=== PATIENT | female | born 1940 | race Caucasian/White ===

== ENCOUNTER 2017-12-30 04:42 | Outpatient (CLI) | payer MEDICARE, BC ==
[~2017-12-30 04:42] MED LIST: APIX5TAB3 PO; ASPI-611 PO; DULO-31 PO; FOLI1TAB16 PO; GABA-532 PO; LEVO50TA8 PO; LISI-604 PO; LYR75C PO; METH-603 PO; MULT-1085 PO; NITR0.4T SL; OMEP20CA10 PO; SIMV20TA5 PO; SOTA80TA69 PO
== END 2017-12-30 23:59 | disposition home or self-care (01) ==
LOC: DIABETIC 04:42
PROVIDERS: ATTEND Family Medicine
DX: E11.65 Type 2 diabetes mellitus with hyperglycemia (principal); E11.21 Type 2 diabetes mellitus with diabetic nephropathy; E11.40 Type 2 diabetes mellitus with diabetic neuropathy, unspecified; E11.319 Type 2 diabetes mellitus with unspecified diabetic retinopathy without macular edema; E11.43 Type 2 diabetes mellitus with diabetic autonomic (poly)neuropathy; K31.84 Gastroparesis; I25.10 Atherosclerotic heart disease of native coronary artery without angina pectoris; I10 Essential (primary) hypertension
CPT/HCPCS: G0108

== ENCOUNTER 2018-04-23 11:20 | Inpatient (IN) | payer MEDICARE, BC ==
[~2018-04-23] VITALS: Ht 167.6 cm; Wt 113.6 kg
[2018-04-23] VITALS (12 sets, daily range): BP systolic 139–154; BP diastolic 84–126
[~2018-04-23 11:20] MED LIST changes: +ALB0.5UD IH; +AMOX-419 PO; +HYDR-3965 PO; -LYR75C PO; -METH-603 PO; +NITR100C6 PO; +ONDA8TAB9 PO; +PPD ID; +PREG225C PO; +RIVA20TA PO; -SOTA80TA69 PO; +SOTA80TA73 PO
[2018-04-23] MEDS ORDERED: LEVO50TA8 PO (11:46)
[2018-04-23] MEDS ORDERED: DULO-31 PO (11:46)
[2018-04-23] MEDS ORDERED: FOLIC ACID PO (11:46)
[2018-04-23] MEDS ORDERED: DOCU-148 PO (11:46)
[2018-04-23] MEDS ORDERED: PIPE2.258 IV (12:22)
[2018-04-23] MEDS ORDERED: LYR25C PO (12:22)
[2018-04-23] MEDS ORDERED: PRAV40TA3 PO (12:22)
[2018-04-23] MEDS ORDERED: POLY17PO10 PO (12:22)
[2018-04-23] MEDS ORDERED: [UNRECOGNIZED DRUG - CODE] EACHEYE (12:22)
[2018-04-23] MEDS ORDERED: ONDA8TAB9 PO (12:22)
[2018-04-23] MEDS ORDERED: PROBIOTIC PO (12:22)
[2018-04-23] MEDS ORDERED: ACET-2119 PO (12:22)
[2018-04-23 12:49] LABS: BASOPHILS # (AUTO) 0.1 X10'3 (0-0.2); BASOPHILS % (AUTO) 0.6 % (0-1); EOSINOPHILS # (AUTO) 0.5 X10'3 (0-0.9); HEMATOCRIT 24.2 % (35.0-45.0); LYMPHOCYTES # (AUTO) 0.9 X10'3 (1.1-4.8); LYMPHOCYTES % (AUTO) 9.2 % (21-51); MEAN CORPUSCULAR HEMOGLOBIN 25.2 PG (27.0-31.0); MEAN CORPUSCULAR HGB CONC 33.2 % (33.0-36.5); MEAN CORPUSCULAR VOLUME 75.8 FL (78-98); MEAN PLATELET VOLUME 9.4 FL (7.4-10.4); MONOCYTES # (AUTO) 0.9 X10'3 (0-0.9); MONOCYTES % (AUTO) 8.8 % (2-12); NEUTROPHILS # (AUTO) 7.4 X10'3 (1.8-7.7); NEUTROPHILS % (AUTO) 76.4 % (42-75); PLATELET COUNT 206 X10'3 (140-440); RED BLOOD COUNT 3.19 X10'6 (4.20-5.60); RED CELL DISTRIBUTION WIDTH 17.2 % (11.5-14.5); WHITE BLOOD COUNT 9.6 X10'3 (4.5-11.0)
[2018-04-23 13:01] LABS: ALANINE AMINOTRANSFERASE 12 U/L (12-78); ALBUMIN 1.7 G/DL (3.4-5.0); ALBUMIN/GLOBULIN RATIO 0.3 (1.1-1.5); ALKALINE PHOSPHATASE 123 IU/L (46-116); ANION GAP 14 (8-16); ASPARTATE AMINO TRANSFERASE 18 U/L (10-37); BILIRUBIN,TOTAL 0.6 MG/DL (0.1-1.0); BLOOD UREA NITROGEN 35 MG/DL (7-18); BUN/CREATININE RATIO 6.5 (6.6-38.0); CALCIUM 7.3 MG/DL (8.5-10.1); CHLORIDE 102 MMOL/L (99-107); CREATININE 5.42 MG/DL (0.40-0.90); GLUCOSE 92 MG/DL (70-104); LIPASE 453 U/L (73-393); POTASSIUM 4.5 MMOL/L (3.5-5.1); SODIUM 140 MMOL/L (135-145); TOTAL CARBON DIOXIDE 23.6 MMOL/L (24-32); TOTAL PROTEIN 6.8 G/DL (6.4-8.2); eGFR 8 ML/MIN
[2018-04-23] MEDS ORDERED: magnesium hydroxide 30ml (MOM) UD suspension PO PRN (15:20)
[2018-04-23] MEDS ORDERED: magnesium Cl slow-release 64mg tablet PO PRN (15:20)
[2018-04-23] MEDS ORDERED: ondansetron/PF 4mg/2ml inj IV PRN (15:20)
[2018-04-23] MEDS ORDERED: mag hydrox/Alum hydrox/simeth 30ml oral suspension PO PRN (15:20)
[2018-04-23] MEDS ORDERED: acetaminophen 325mg tablet PO PRN (15:20)
[2018-04-23] MEDS ORDERED: potassium Cl 40MEQ/NS 500ml 500 ML IV PRN ×2 (15:20)
[2018-04-23] MEDS ORDERED: magnesium 2GM in 50ml NS 50 ML IV PRN (15:20)
[2018-04-23] MEDS ORDERED: magnesium 4gm in 100ml NS 100 ML IV PRN (15:20)
[2018-04-23] MEDS ORDERED: potassium Cl 20 mEq SR tablet PO PRN ×2 (15:20)
[2018-04-23] MEDS ORDERED: dextrose ORAL solution 15 GM/59 ML bottle PO PRN ×2 (15:40)
[2018-04-23] MEDS ORDERED: magnesium/D5W IVPB 100 ML IV PRN (15:40)
[2018-04-23] MEDS ORDERED: MESSAGE TO PHARMACY PO ONE (15:40)
[2018-04-23] MEDS ORDERED: glucagon, human recombinant 1mg kit SUBCUT PRN (15:40)
[2018-04-23] MEDS ORDERED: dextrose 50%-water 50ml dispensing syringe IV PRN ×2 (15:40)
[2018-04-23 16:18] LABS: CLARITY,URINE CLOUDY (Clear); COLOR,URINE YELLOW (Yellow); GLUCOSE, URINE NEGATIVE (Neg); KETONES,URINE NEGATIVE (Neg); LEUKOCYTE ESTERASE ,URINE MODERATE (Neg); NITRITES, URINE NEGATIVE (Neg); OCCULT BLOOD,URINE LARGE (Neg); PH,URINE 6.5 (4.8-8.0); PROTEIN,URINE TRACE mg/dl (Neg); UA COLLECTION TYPE CLN CATCH MIDSTREAM; UROBILINOGEN,URINE 0.2 E.U/dL (0.2-1.0)
[2018-04-23 16:45] LABS: SQUAMOUS EPITHELIAL CELL,UR MODERATE /LPF (FEW)
[2018-04-23] MEDS ORDERED: albuterol 2.5 MG/3 ML nebule NEB PRN (16:45)
[2018-04-23] MEDS ORDERED: polyethylene glycol 3350 17gm powd pack PO PRN (16:45)
[2018-04-23 16:46] LABS: BACTERIA,URINE 1+ /HPF (Neg); RBC,URINE TNTC /HPF (0-2); WBC,URINE 50-100 /HPF (0-4)
[2018-04-23] MEDS: normal saline 1000ml 1,000 ML IV SCH (16:46)
[2018-04-23 16:47] LABS: YEAST FEW /HPF (NEGATIVE)
[2018-04-23] MEDS ORDERED: ondansetron 4mg rapidly disintigrating tab PO PRN (17:00)
[2018-04-23] MEDS: HYDROcodone/acetaminophen 5mg/325mg tablet PO PRN (18:00)
[2018-04-23] MEDS ORDERED: sotalol 80mg tablet PO SCH (20:00)
[2018-04-23] MEDS ORDERED: heparin, porcine 5000 units/ml vial SQ SCH (20:00)
[2018-04-23] MEDS: diltiazem-NS 100mg/100ml 100 ML IV SCH ×2 (20:36→23:38)
[2018-04-23] MEDS ORDERED: atorvastatin 10mg tablet PO SCH (21:00)
[2018-04-23] MEDS: apixaban 5mg tablet PO SCH (21:00)
[2018-04-23] MEDS: insulin glargine (Lantus) pen - multi-dose SQ SCH (21:00)
[2018-04-23] MEDS: pregabalin 25mg capsule PO SCH (21:00)
[2018-04-23] MEDS: tetrahydrozoline 0.05% 15ml ophthalmic drops EACHEYE SCH (21:06)
[2018-04-24] VITALS (23 sets, daily range): BP systolic 106–158; BP diastolic 58–111
[2018-04-24] MEDS: HYDROcodone/acetaminophen 5mg/325mg tablet PO PRN ×4 (00:13→20:28)
[2018-04-24] MEDS: tetrahydrozoline 0.05% 15ml ophthalmic drops EACHEYE SCH ×4 (02:00→20:30)
[2018-04-24] MEDS: normal saline 1000ml 1,000 ML IV SCH ×2 (02:10→12:10)
[2018-04-24] MEDS: diltiazem-NS 100mg/100ml 100 ML IV SCH ×2 (02:26→06:25)
[2018-04-24] MEDS ORDERED: metoprolol tartrate 25mg tablet PO ONE (03:45)
[2018-04-24 05:45] LABS: BASOPHILS # (AUTO) 0.1 X10'3 (0-0.2); BASOPHILS % (AUTO) 0.8 % (0-1); EOSINOPHILS # (AUTO) 0.5 X10'3 (0-0.9); EOSINOPHILS % (AUTO) 4.8 % (0-6); HEMATOCRIT 25.1 % (35.0-45.0); HEMOGLOBIN 8.3 g/dl (12.0-16.0); LYMPHOCYTES # (AUTO) 0.8 X10'3 (1.1-4.8); LYMPHOCYTES % (AUTO) 8.1 % (21-51); MEAN CORPUSCULAR HEMOGLOBIN 25.1 PG (27.0-31.0); MEAN CORPUSCULAR HGB CONC 33.3 % (33.0-36.5); MEAN CORPUSCULAR VOLUME 75.6 FL (78-98); MEAN PLATELET VOLUME 9.5 FL (7.4-10.4); MONOCYTES # (AUTO) 0.9 X10'3 (0-0.9); MONOCYTES % (AUTO) 9.1 % (2-12); NEUTROPHILS # (AUTO) 7.9 X10'3 (1.8-7.7); NEUTROPHILS % (AUTO) 77.2 % (42-75); PLATELET COUNT 232 X10'3 (140-440); RED BLOOD COUNT 3.32 X10'6 (4.20-5.60); RED CELL DISTRIBUTION WIDTH 16.9 % (11.5-14.5); WHITE BLOOD COUNT 10.2 X10'3 (4.5-11.0)
[2018-04-24 05:56] LABS: ALANINE AMINOTRANSFERASE 11 U/L (12-78); ALBUMIN 1.8 G/DL (3.4-5.0); ALBUMIN/GLOBULIN RATIO 0.3 (1.1-1.5); ALKALINE PHOSPHATASE 132 IU/L (46-116); ANION GAP 16 (8-16); ASPARTATE AMINO TRANSFERASE 21 U/L (10-37); BILIRUBIN,TOTAL 0.7 MG/DL (0.1-1.0); BLOOD UREA NITROGEN 37 MG/DL (7-18); BUN/CREATININE RATIO 6.5 (6.6-38.0); CALCIUM 7.7 MG/DL (8.5-10.1); CHLORIDE 102 MMOL/L (99-107); GLUCOSE 96 MG/DL (70-104); MAGNESIUM 1.6 MG/DL (1.5-2.4); POTASSIUM 4.9 MMOL/L (3.5-5.1); SODIUM 140 MMOL/L (135-145); TOTAL CARBON DIOXIDE 21.9 MMOL/L (24-32); TOTAL PROTEIN 7.1 G/DL (6.4-8.2); eGFR 7 ML/MIN
[2018-04-24] MEDS: pregabalin 25mg capsule PO SCH ×2 (07:10→20:28)
[2018-04-24] MEDS: pantoprazole 40mg Tablet.DR PO SCH (07:11)
[2018-04-24] MEDS: levoTHYROXINE 25mcg tablet PO SCH (07:11)
[2018-04-24] MEDS: aspirin 81mg tab.chew PO SCH (07:11)
[2018-04-24] MEDS: apixaban 5mg tablet PO SCH (07:11)
[2018-04-24] MEDS: sotalol 80mg tablet PO SCH (07:11)
[2018-04-24] MEDS: folic acid 1mg tablet PO SCH (07:11)
[2018-04-24] MEDS: docusate sod 100mg capsule PO SCH (07:12)
[2018-04-24] MEDS ORDERED: duloxetine 30mg CAPSULE.DR PO SCH (08:00)
[2018-04-24] MEDS: K and/or MAG REPLACEMENT MC SCH (08:00)
[2018-04-24] MEDS: CefTRIAXone/D5W-Rocephin 1gm 50 ML IV SCH (10:29)
[2018-04-24] MEDS ORDERED: methylPREDNISolone sod succ 125mg/2ml vial IV ONE (11:45)
[2018-04-24] MEDS ORDERED: sotalol 80mg tablet PO ONE (14:30)
[2018-04-24] MEDS: apixaban 2.5mg tablet PO SCH (20:29)
[2018-04-24] MEDS: methylPREDNISolone sod succ 125mg/2ml vial IV SCH (20:30)
[2018-04-24] MEDS: furosemide 40mg/4ml inj IV SCH (20:30)
[2018-04-24] MEDS: insulin glargine (Lantus) pen - multi-dose SQ SCH (21:00)
[2018-04-25 02:00] VITALS: BP 112/75
[2018-04-25] MEDS: tetrahydrozoline 0.05% 15ml ophthalmic drops EACHEYE SCH ×4 (02:00→20:00)
[2018-04-25 06:00] VITALS: BP 138/74
[2018-04-25 06:18] LABS: BASOPHILS % (AUTO) 0.1 % (0-1); EOSINOPHILS % (AUTO) 0.1 % (0-6); HEMATOCRIT 24.6 % (35.0-45.0); LYMPHOCYTES # (AUTO) 0.9 X10'3 (1.1-4.8); LYMPHOCYTES % (AUTO) 13.1 % (21-51); MEAN CORPUSCULAR HEMOGLOBIN 25.4 PG (27.0-31.0); MEAN CORPUSCULAR HGB CONC 32.7 % (33.0-36.5); MEAN CORPUSCULAR VOLUME 77.7 FL (78-98); MONOCYTES # (AUTO) 0.1 X10'3 (0-0.9); MONOCYTES % (AUTO) 0.9 % (2-12); NEUTROPHILS # (AUTO) 5.7 X10'3 (1.8-7.7); NEUTROPHILS % (AUTO) 85.8 % (42-75); PLATELET COUNT 194 X10'3 (140-440); RED BLOOD COUNT 3.17 X10'6 (4.20-5.60); RED CELL DISTRIBUTION WIDTH 15.9 % (11.5-14.5); WHITE BLOOD COUNT 6.7 X10'3 (4.5-11.0)
[2018-04-25 06:25] LABS: ALANINE AMINOTRANSFERASE 12 U/L (12-78); ALBUMIN 1.8 G/DL (3.4-5.0); ALBUMIN/GLOBULIN RATIO 0.3 (1.1-1.5); ALKALINE PHOSPHATASE 122 IU/L (46-116); ANION GAP 15 (8-16); ASPARTATE AMINO TRANSFERASE 17 U/L (10-37); BILIRUBIN,TOTAL 0.5 MG/DL (0.1-1.0); BLOOD UREA NITROGEN 46 MG/DL (7-18); BUN/CREATININE RATIO 7.5 (6.6-38.0); CALCIUM 7.5 MG/DL (8.5-10.1); CHLORIDE 101 MMOL/L (99-107); CREATININE 6.15 MG/DL (0.40-0.90); GLUCOSE 152 MG/DL (70-104); LACTATE DEHYDROGENASE 260 U/L (81-234); MAGNESIUM 1.7 MG/DL (1.5-2.4); POTASSIUM 4.6 MMOL/L (3.5-5.1); SODIUM 138 MMOL/L (135-145); TOTAL CARBON DIOXIDE 22.1 MMOL/L (24-32); TOTAL PROTEIN 7.1 G/DL (6.4-8.2); eGFR 7 ML/MIN
[2018-04-25 07:00] LABS: RHEUM FACTOR QUAL REFLEX TITER NEGATIVE (Neg)
[2018-04-25] MEDS: docusate sod 100mg capsule PO SCH (08:00)
[2018-04-25] MEDS: K and/or MAG REPLACEMENT MC SCH (08:00)
[2018-04-25] MEDS: methylPREDNISolone sod succ 125mg/2ml vial IV SCH ×2 (09:04→20:22)
[2018-04-25] MEDS: furosemide 40mg/4ml inj IV SCH ×2 (09:07→20:26)
[2018-04-25] MEDS: levoTHYROXINE 25mcg tablet PO SCH (09:08)
[2018-04-25] MEDS: pantoprazole 40mg Tablet.DR PO SCH (09:08)
[2018-04-25] MEDS: CefTRIAXone/D5W-Rocephin 1gm 50 ML IV SCH (09:08)
[2018-04-25] MEDS: aspirin 81mg tab.chew PO SCH (09:09)
[2018-04-25] MEDS: duloxetine 30mg CAPSULE.DR PO SCH (09:09)
[2018-04-25] MEDS: HYDROcodone/acetaminophen 5mg/325mg tablet PO PRN ×3 (09:09→21:43)
[2018-04-25] MEDS: apixaban 2.5mg tablet PO SCH ×2 (09:09→20:00)
[2018-04-25] MEDS: folic acid 1mg tablet PO SCH (09:11)
[2018-04-25] MEDS: pregabalin 25mg capsule PO SCH ×2 (09:12→20:20)
[2018-04-25 11:00] VITALS: BP 109/38
[2018-04-25] MEDS: sodium bicarbonate (8.4%) inj. 150 MEQ in dextrose 5%-water 1,000 ML IV SCH (11:16)
[2018-04-25 15:00] VITALS: BP 123/74
[2018-04-25] MEDS: insulin Lispro (HumaLOG) vial - multi-dose SQ SCH ×2 (15:04→20:15)
[2018-04-25] MEDS ORDERED: epoetin 20,000 units/ml inj SQ ONE (15:25)
[2018-04-25 18:00] VITALS: BP 124/64
[2018-04-25 19:28] LABS: FERRITIN 420 NG/ML (8-252)
[2018-04-25 19:43] LABS: % IRON SATURATION 21 % (11-46); IRON 46 UG/DL (49-151); TOTAL IRON BINDING CAPACITY 218 UG/DL (259-388)
[2018-04-25] MEDS: sotalol 80mg tablet PO SCH (20:00)
[2018-04-25] MEDS: insulin glargine (Lantus) pen - multi-dose SQ SCH (21:50)
[2018-04-25 22:00] VITALS: BP 124/70
[2018-04-26 02:00] VITALS: BP 123/76
[2018-04-26] MEDS: tetrahydrozoline 0.05% 15ml ophthalmic drops EACHEYE SCH ×4 (02:00→20:00)
[2018-04-26] MEDS: sodium bicarbonate (8.4%) inj. 150 MEQ in dextrose 5%-water 1,000 ML IV SCH (02:57)
[2018-04-26 05:15] LABS: BASOPHILS % (AUTO) 0.1 % (0-1); EOSINOPHILS % (AUTO) 0 % (0-6); HEMATOCRIT 25.6 % (35.0-45.0); HEMOGLOBIN 8.4 g/dl (12.0-16.0); LYMPHOCYTES # (AUTO) 0.7 X10'3 (1.1-4.8); LYMPHOCYTES % (AUTO) 5.8 % (21-51); MEAN CORPUSCULAR HGB CONC 32.6 % (33.0-36.5); MEAN CORPUSCULAR VOLUME 76.7 FL (78-98); MEAN PLATELET VOLUME 10.6 FL (7.4-10.4); MONOCYTES # (AUTO) 0.2 X10'3 (0-0.9); NEUTROPHILS # (AUTO) 11.4 X10'3 (1.8-7.7); NEUTROPHILS % (AUTO) 92.1 % (42-75); PLATELET COUNT 250 X10'3 (140-440); RED BLOOD COUNT 3.34 X10'6 (4.20-5.60); RED CELL DISTRIBUTION WIDTH 17.1 % (11.5-14.5); WHITE BLOOD COUNT 12.3 X10'3 (4.5-11.0)
[2018-04-26 05:27] LABS: ALANINE AMINOTRANSFERASE 17 U/L (12-78); ALBUMIN 1.8 G/DL (3.4-5.0); ALBUMIN/GLOBULIN RATIO 0.3 (1.1-1.5); ALKALINE PHOSPHATASE 126 IU/L (46-116); ANION GAP 14 (8-16); ASPARTATE AMINO TRANSFERASE 31 U/L (10-37); BILIRUBIN,TOTAL 0.4 MG/DL (0.1-1.0); BLOOD UREA NITROGEN 56 MG/DL (7-18); BUN/CREATININE RATIO 9.1 (6.6-38.0); CALCIUM 7.3 MG/DL (8.5-10.1); CHLORIDE 97 MMOL/L (99-107); CREATININE 6.13 MG/DL (0.40-0.90); GLUCOSE 155 MG/DL (70-104); MAGNESIUM 1.6 MG/DL (1.5-2.4); POTASSIUM 4.7 MMOL/L (3.5-5.1); SODIUM 136 MMOL/L (135-145); TOTAL CARBON DIOXIDE 24.6 MMOL/L (24-32); TOTAL PROTEIN 7.1 G/DL (6.4-8.2); eGFR 7 ML/MIN
[2018-04-26 06:00] VITALS: BP 112/64
[2018-04-26 06:48] LABS: LARGE PLATELETS FEW; PLATELET ESTIMATE NORMAL
[2018-04-26] MEDS: K and/or MAG REPLACEMENT MC SCH (08:00)
[2018-04-26] MEDS: furosemide 40mg/4ml inj IV SCH ×3 (08:00→20:46)
[2018-04-26] MEDS: docusate sod 100mg capsule PO SCH (08:00)
[2018-04-26 08:12] LABS: ANTISTREPTOLYSIN O AB 37.4 IU/mL (0.0-200.0); RPR Non Reactive (Non Reactive)
[2018-04-26] MEDS: pregabalin 25mg capsule PO SCH ×2 (08:17→20:45)
[2018-04-26] MEDS: apixaban 2.5mg tablet PO SCH ×2 (08:18→20:44)
[2018-04-26] MEDS: aspirin 81mg tab.chew PO SCH (08:18)
[2018-04-26] MEDS: folic acid 1mg tablet PO SCH (08:18)
[2018-04-26] MEDS: duloxetine 30mg CAPSULE.DR PO SCH (08:18)
[2018-04-26] MEDS: levoTHYROXINE 25mcg tablet PO SCH (08:18)
[2018-04-26] MEDS: pantoprazole 40mg Tablet.DR PO SCH (08:18)
[2018-04-26] MEDS: methylPREDNISolone sod succ 125mg/2ml vial IV SCH ×2 (08:23→20:45)
[2018-04-26] MEDS: HYDROcodone/acetaminophen 5mg/325mg tablet PO PRN ×2 (08:23→21:19)
[2018-04-26] MEDS: CefTRIAXone/D5W-Rocephin 1gm 50 ML IV SCH (08:24)
[2018-04-26] MEDS: insulin Lispro (HumaLOG) vial - multi-dose SQ SCH ×2 (08:53→13:35)
[2018-04-26 11:00] VITALS: BP 101/74
[2018-04-26 13:19] LABS: HEPATITIS C ANTIBODY <0.1 s/co ratio (0.0-0.9)
[2018-04-26 15:00] VITALS: BP 127/71
[2018-04-26] MEDS: normal saline 1000ml 1,000 ML IV SCH (15:34)
[2018-04-26 18:00] VITALS: BP 142/78
[2018-04-26 19:08] LABS: ANTINUCLEAR ANTIBODIES Negative (Negative)
[2018-04-26] MEDS: lactobacillus rhamnosus 10,000 MMU CELLS/CAPSULE PO SCH (20:44)
[2018-04-26] MEDS: insulin glargine (Lantus) pen - multi-dose SQ SCH (21:23)
[2018-04-26 22:00] VITALS: BP 136/70
[2018-04-27 02:00] VITALS: BP 127/73
[2018-04-27] MEDS: tetrahydrozoline 0.05% 15ml ophthalmic drops EACHEYE SCH ×4 (02:00→19:56)
[2018-04-27] MEDS: HYDROcodone/acetaminophen 5mg/325mg tablet PO PRN ×2 (03:25→19:55)
[2018-04-27] MEDS: normal saline 1000ml 1,000 ML IV SCH (04:39)
[2018-04-27 05:58] LABS: BASOPHILS % (AUTO) 0.1 % (0-1); EOSINOPHILS # (AUTO) 0.2 X10'3 (0-0.9); EOSINOPHILS % (AUTO) 1.4 % (0-6); HEMATOCRIT 26.4 % (35.0-45.0); HEMOGLOBIN 8.7 g/dl (12.0-16.0); LYMPHOCYTES # (AUTO) 0.9 X10'3 (1.1-4.8); LYMPHOCYTES % (AUTO) 7.2 % (21-51); MEAN CORPUSCULAR HGB CONC 32.8 % (33.0-36.5); MEAN CORPUSCULAR VOLUME 76.2 FL (78-98); MEAN PLATELET VOLUME 10.9 FL (7.4-10.4); MONOCYTES # (AUTO) 0.4 X10'3 (0-0.9); NEUTROPHILS # (AUTO) 10.8 X10'3 (1.8-7.7); NEUTROPHILS % (AUTO) 88.3 % (42-75); PLATELET COUNT 222 X10'3 (140-440); RED BLOOD COUNT 3.47 X10'6 (4.20-5.60); RED CELL DISTRIBUTION WIDTH 16.6 % (11.5-14.5); WHITE BLOOD COUNT 12.3 X10'3 (4.5-11.0)
[2018-04-27 06:00] VITALS: BP 123/80
[2018-04-27 06:17] LABS: ALANINE AMINOTRANSFERASE 36 U/L (12-78); ALBUMIN 1.9 G/DL (3.4-5.0); ALBUMIN/GLOBULIN RATIO 0.4 (1.1-1.5); ALKALINE PHOSPHATASE 151 IU/L (46-116); ANION GAP 17 (8-16); ASPARTATE AMINO TRANSFERASE 50 U/L (10-37); BILIRUBIN,TOTAL 0.4 MG/DL (0.1-1.0); BLOOD UREA NITROGEN 65 MG/DL (7-18); BUN/CREATININE RATIO 11.2 (6.6-38.0); CHLORIDE 98 MMOL/L (99-107); CREATININE 5.81 MG/DL (0.40-0.90); GLUCOSE 154 MG/DL (70-104); MAGNESIUM 1.4 MG/DL (1.5-2.4); POTASSIUM 3.9 MMOL/L (3.5-5.1); SODIUM 139 MMOL/L (135-145); TOTAL CARBON DIOXIDE 24.2 MMOL/L (24-32); eGFR 7 ML/MIN
[2018-04-27] MEDS: docusate sod 100mg capsule PO SCH (08:00)
[2018-04-27] MEDS: K and/or MAG REPLACEMENT MC SCH (08:00)
[2018-04-27 08:08] LABS: LARGE PLATELETS FEW; PLATELET ESTIMATE NORMAL
[2018-04-27] MEDS: levoTHYROXINE 25mcg tablet PO SCH (08:30)
[2018-04-27] MEDS: aspirin 81mg tab.chew PO SCH (08:30)
[2018-04-27] MEDS: folic acid 1mg tablet PO SCH (08:30)
[2018-04-27] MEDS: pregabalin 25mg capsule PO SCH ×2 (08:30→19:54)
[2018-04-27] MEDS: apixaban 2.5mg tablet PO SCH ×2 (08:30→19:55)
[2018-04-27] MEDS: pantoprazole 40mg Tablet.DR PO SCH (08:30)
[2018-04-27] MEDS: lactobacillus rhamnosus 10,000 MMU CELLS/CAPSULE PO SCH ×2 (08:30→19:55)
[2018-04-27] MEDS: duloxetine 30mg CAPSULE.DR PO SCH (08:30)
[2018-04-27] MEDS: sotalol 80mg tablet PO SCH (08:31)
[2018-04-27] MEDS: furosemide 40mg/4ml inj IV SCH (08:36)
[2018-04-27] MEDS: methylPREDNISolone sod succ 125mg/2ml vial IV SCH (08:36)
[2018-04-27] MEDS: insulin Lispro (HumaLOG) vial - multi-dose SQ SCH ×3 (08:50→18:43)
[2018-04-27 11:00] VITALS: BP 137/79
[2018-04-27 15:00] VITALS: BP_SYST 126; BP_SYST 141; BP_DIAS 73; BP_DIAS 79
[2018-04-27 19:00] VITALS: BP 129/68
[2018-04-27] MEDS: methylPREDNISolone sod succ/PF 40mg inj. IV SCH (19:55)
[2018-04-27] MEDS: insulin glargine (Lantus) pen - multi-dose SQ SCH (21:29)
[2018-04-27 23:00] VITALS: BP 151/83
[2018-04-28] MEDS: tetrahydrozoline 0.05% 15ml ophthalmic drops EACHEYE SCH ×3 (02:11→14:00)
[2018-04-28] MEDS: HYDROcodone/acetaminophen 5mg/325mg tablet PO PRN ×2 (02:12→09:11)
[2018-04-28 03:00] VITALS: BP 134/67
[2018-04-28 05:30] VITALS: BP 143/81
[2018-04-28 06:15] LABS: BASOPHILS % (AUTO) 0.2 % (0-1); EOSINOPHILS % (AUTO) 0 % (0-6); HEMATOCRIT 28.1 % (35.0-45.0); HEMOGLOBIN 9.1 g/dl (12.0-16.0); LYMPHOCYTES # (AUTO) 1.1 X10'3 (1.1-4.8); LYMPHOCYTES % (AUTO) 9.4 % (21-51); MEAN CORPUSCULAR HEMOGLOBIN 25.1 PG (27.0-31.0); MEAN CORPUSCULAR HGB CONC 32.3 % (33.0-36.5); MEAN CORPUSCULAR VOLUME 77.9 FL (78-98); MEAN PLATELET VOLUME 10.5 FL (7.4-10.4); MONOCYTES # (AUTO) 0.7 X10'3 (0-0.9); MONOCYTES % (AUTO) 6.5 % (2-12); NEUTROPHILS # (AUTO) 9.4 X10'3 (1.8-7.7); NEUTROPHILS % (AUTO) 83.9 % (42-75); PLATELET COUNT 219 X10'3 (140-440); RED BLOOD COUNT 3.62 X10'6 (4.20-5.60); WHITE BLOOD COUNT 11.2 X10'3 (4.5-11.0)
[2018-04-28 06:32] LABS: ALANINE AMINOTRANSFERASE 62 U/L (12-78); ALBUMIN/GLOBULIN RATIO 0.4 (1.1-1.5); ALKALINE PHOSPHATASE 165 IU/L (46-116); ANION GAP 15 (8-16); ASPARTATE AMINO TRANSFERASE 71 U/L (10-37); BILIRUBIN,TOTAL 0.4 MG/DL (0.1-1.0); BLOOD UREA NITROGEN 73 MG/DL (7-18); BUN/CREATININE RATIO 14.5 (6.6-38.0); CALCIUM 7.2 MG/DL (8.5-10.1); CHLORIDE 100 MMOL/L (99-107); CREATININE 5.02 MG/DL (0.40-0.90); GLUCOSE 140 MG/DL (70-104); MAGNESIUM 1.3 MG/DL (1.5-2.4); POTASSIUM 3.4 MMOL/L (3.5-5.1); SODIUM 142 MMOL/L (135-145); TOTAL CARBON DIOXIDE 26.7 MMOL/L (24-32); TOTAL PROTEIN 7.1 G/DL (6.4-8.2); eGFR 8 ML/MIN
[2018-04-28 06:45] LABS: LARGE PLATELETS FEW; PLATELET ESTIMATE NORMAL
[2018-04-28] MEDS: docusate sod 100mg capsule PO SCH (08:00)
[2018-04-28] MEDS: K and/or MAG REPLACEMENT MC SCH (08:00)
[2018-04-28] MEDS: methylPREDNISolone sod succ/PF 40mg inj. IV SCH (08:38)
[2018-04-28] MEDS: aspirin 81mg tab.chew PO SCH (08:38)
[2018-04-28] MEDS: levoTHYROXINE 25mcg tablet PO SCH (08:39)
[2018-04-28] MEDS: pantoprazole 40mg Tablet.DR PO SCH (08:39)
[2018-04-28] MEDS: duloxetine 30mg CAPSULE.DR PO SCH (08:39)
[2018-04-28] MEDS: apixaban 2.5mg tablet PO SCH (08:40)
[2018-04-28] MEDS: pregabalin 25mg capsule PO SCH (08:40)
[2018-04-28] MEDS: folic acid 1mg tablet PO SCH (08:40)
[2018-04-28] MEDS: lactobacillus rhamnosus 10,000 MMU CELLS/CAPSULE PO SCH (08:40)
[2018-04-28] MEDS: insulin Lispro (HumaLOG) vial - multi-dose SQ SCH (08:55)
[2018-04-28 11:00] VITALS: BP 123/66
[2018-04-29 06:34] LABS: A/G RATIO 0.6 (0.7-1.7); ALBUMIN 2.3 g/dL (2.9-4.4); BETA GLOBULIN 1.1 g/dL (0.7-1.3); GAMMA GLOBULIN 1.1 g/dL (0.4-1.8); GLOBULIN, TOTAL 3.8 g/dL (2.2-3.9); M-SPIKE 0.1 g/dL (Not Observed); PROTEIN, TOTAL, SERUM 6.1 g/dL (6.0-8.5)
[2018-04-29 07:15] LABS: COMPLEMENT C3, SERUM 139 mg/dL (82-167); COMPLEMENT C4, SERUM 28 mg/dL (14-44)
[2018-04-29 11:14] LABS: ATYPICAL PANCA <1:20 titer (Neg:<1:20); CYTOPLASMIC (C-ANCA) <1:20 titer (Neg:<1:20); PERINUCLEAR (P-ANCA) <1:20 titer (Neg:<1:20)
== END 2018-04-28 14:50 | DRG 682 ==
LOC: ER 11:21 → ED HOLD 15:20 → SUR 3N 17:46 → PCU 3S 20:10
PROVIDERS: ADMIT Internal Medicine; ATTEND Family Medicine
PROC: 0T9B70Z Drainage of Bladder with Drainage Device, Via Natural or Artificial Opening (ICD-10-PCS; principal; 2018-04-24)
DX: N17.0 Acute kidney failure with tubular necrosis (principal); E43 Unspecified severe protein-calorie malnutrition; E87.2 Acidosis; N39.0 Urinary tract infection, site not specified; N13.2 Hydronephrosis with renal and ureteral calculous obstruction; E11.9 Type 2 diabetes mellitus without complications; D63.8 Anemia in other chronic diseases classified elsewhere; E03.9 Hypothyroidism, unspecified; E78.5 Hyperlipidemia, unspecified; F32.9 Major depressive disorder, single episode, unspecified; G89.29 Other chronic pain; I48.2 Chronic atrial fibrillation; R31.9 Hematuria, unspecified; E66.01 Morbid (severe) obesity due to excess calories; I10 Essential (primary) hypertension; Z82.0 Family history of epilepsy and other diseases of the nervous system; Z90.49 Acquired absence of other specified parts of digestive tract; Z79.899 Other long term (current) drug therapy; Z79.01 Long term (current) use of anticoagulants; Z82.3 Family history of stroke
CPT/HCPCS: 36415; 74176; 76775; 78707; 80053; 81001; 82728; 82948; 83540; 83550; 83615; 83690; 83735; 84155; 84165; 85025; 85651; 86038; 86060; 86160; 86256; 86430; 86592; 86803; 87070; 87088; 97110; 97116; 97162; 97530; 99285; A4315; A6449; A9562; J0696; J0885; J1815; J1940; J2920; J2930; J3490; J7030

== ENCOUNTER 2018-05-27 15:44 | Inpatient (IN) | payer MEDICARE, BC ==
[~2018-05-27] VITALS: Ht 165.1 cm; Wt 98.3 kg
[~2018-05-27 15:44] MED LIST changes: +ACET-2119 PO; -AMOX-419 PO; +DOCU-148 PO; -GABA-532 PO; -HYDR-3965 PO; +LYR25C PO; -NITR100C6 PO; +PIPE2.258 IV; +POLY17PO10 PO; +PRAV40TA3 PO; -PREG225C PO; +PROBIOTIC PO; -RIVA20TA PO; +[UNRECOGNIZED DRUG - CODE] EACHEYE
[2018-05-27 16:10] LABS: BASOPHILS % (AUTO) 0.6 % (0-1); EOSINOPHILS # (AUTO) 0.2 X10'3 (0-0.9); EOSINOPHILS % (AUTO) 2.2 % (0-6); HEMATOCRIT 30.5 % (35.0-45.0); HEMOGLOBIN 10.4 g/dl (12.0-16.0); LYMPHOCYTES # (AUTO) 1.1 X10'3 (1.1-4.8); LYMPHOCYTES % (AUTO) 13.9 % (21-51); MEAN CORPUSCULAR HEMOGLOBIN 26.2 PG (27.0-31.0); MEAN PLATELET VOLUME 11.2 FL (7.4-10.4); MONOCYTES % (AUTO) 12.6 % (2-12); NEUTROPHILS # (AUTO) 5.8 X10'3 (1.8-7.7); NEUTROPHILS % (AUTO) 70.7 % (42-75); PLATELET COUNT 173 X10'3 (140-440); RED BLOOD COUNT 3.97 X10'6 (4.20-5.60); RED CELL DISTRIBUTION WIDTH 18.1 % (11.5-14.5); WHITE BLOOD COUNT 8.2 X10'3 (4.5-11.0)
[2018-05-27 16:22] LABS: INR 1.1 INR; PARTIAL THROMBOPLASTIN TIME 51 SECONDS (22-32); PROTHROMBIN TIME 11.3 SECONDS (9.0-12.0)
[2018-05-27 16:26] LABS: ALANINE AMINOTRANSFERASE 20 U/L (12-78); ALBUMIN 2.6 G/DL (3.4-5.0); ALBUMIN/GLOBULIN RATIO 0.5 (1.1-1.5); ALKALINE PHOSPHATASE 142 IU/L (46-116); ANION GAP 14 (8-16); ASPARTATE AMINO TRANSFERASE 26 U/L (10-37); BILIRUBIN,TOTAL 1.2 MG/DL (0.1-1.0); BLOOD UREA NITROGEN 22 MG/DL (7-18); BUN/CREATININE RATIO 14.3 (6.6-38.0); CALCIUM 8.6 MG/DL (8.5-10.1); CHLORIDE 102 MMOL/L (99-107); CREATININE 1.54 MG/DL (0.40-0.90); GLUCOSE 120 MG/DL (70-104); POTASSIUM 3.9 MMOL/L (3.5-5.1); SODIUM 137 MMOL/L (135-145); TOTAL CARBON DIOXIDE 20.9 MMOL/L (24-32); TOTAL PROTEIN 7.9 G/DL (6.4-8.2); eGFR 33 ML/MIN
[2018-05-27 16:37] LABS: PLATELET ESTIMATE DECREASED
[2018-05-27 16:38] LABS: GIANT PLATELET FEW; LARGE PLATELETS MODERATE
[2018-05-27] MEDS ORDERED: normal saline 1000ML IV soln IVB ONE (17:15)
[2018-05-27] MEDS: metoprolol tartrate 1mg/ml inj IV ONE ×2 (17:34→18:02)
[2018-05-27] MEDS ORDERED: metoprolol tartrate 1mg/ml inj IV ONE (18:35)
[2018-05-27 19:00] VITALS: BP 102/72
[2018-05-27] MEDS ORDERED: nitroGLYCERIN 0.4mg SUBLingual tab SL PRN (19:20)
[2018-05-27] MEDS ORDERED: polyethylene glycol 3350 17gm powd pack PO PRN (19:20)
[2018-05-27] MEDS ORDERED: albuterol 2.5 MG/3 ML nebule NEB PRN (19:20)
[2018-05-27] MEDS ORDERED: verapamil 2.5 mg/ml inj IV ONE (19:30)
[2018-05-27] MEDS: tetrahydrozoline 0.05% 15ml ophthalmic drops EACHEYE SCH (20:00)
[2018-05-27] MEDS: docusate sod 100mg capsule PO SCH (20:00)
[2018-05-27] MEDS ORDERED: QUELT PO (20:40)
[2018-05-27] MEDS ORDERED: pravastatin 40mg tablet PO SCH (21:00)
[2018-05-27] MEDS: sotalol 80mg tablet PO SCH (21:51)
[2018-05-27] MEDS: apixaban 5mg tablet PO SCH (21:51)
[2018-05-27] MEDS: atorvastatin 10mg tablet PO SCH (21:52)
[2018-05-27] MEDS: pregabalin 75mg capsule PO SCH (21:52)
[2018-05-27] MEDS ORDERED: metoprolol tartrate 1mg/ml inj IV PRN (22:50)
[2018-05-27 23:00] VITALS: BP 119/74
[2018-05-28] VITALS (15 sets, daily range): BP systolic 95–126; BP diastolic 57–85
[2018-05-28] MEDS: tetrahydrozoline 0.05% 15ml ophthalmic drops EACHEYE SCH ×4 (00:41→20:00)
[2018-05-28] MEDS ORDERED: amiodarone 200mg tablet PO ONE (00:55)
[2018-05-28 04:32] LABS: BASOPHILS % (AUTO) 0.4 % (0-1); EOSINOPHILS # (AUTO) 0.2 X10'3 (0-0.9); EOSINOPHILS % (AUTO) 2.6 % (0-6); HEMATOCRIT 27.5 % (35.0-45.0); HEMOGLOBIN 9.2 g/dl (12.0-16.0); LYMPHOCYTES # (AUTO) 1.4 X10'3 (1.1-4.8); LYMPHOCYTES % (AUTO) 22.1 % (21-51); MEAN CORPUSCULAR HEMOGLOBIN 25.9 PG (27.0-31.0); MEAN CORPUSCULAR HGB CONC 33.4 % (33.0-36.5); MEAN CORPUSCULAR VOLUME 77.6 FL (78-98); MEAN PLATELET VOLUME 11.6 FL (7.4-10.4); MONOCYTES # (AUTO) 0.8 X10'3 (0-0.9); MONOCYTES % (AUTO) 13.5 % (2-12); NEUTROPHILS # (AUTO) 3.8 X10'3 (1.8-7.7); NEUTROPHILS % (AUTO) 61.4 % (42-75); RED BLOOD COUNT 3.55 X10'6 (4.20-5.60); RED CELL DISTRIBUTION WIDTH 18.1 % (11.5-14.5); WHITE BLOOD COUNT 6.3 X10'3 (4.5-11.0)
[2018-05-28 04:45] LABS: ALANINE AMINOTRANSFERASE 19 U/L (12-78); ALBUMIN 2.4 G/DL (3.4-5.0); ALBUMIN/GLOBULIN RATIO 0.5 (1.1-1.5); ALKALINE PHOSPHATASE 123 IU/L (46-116); ANION GAP 13 (8-16); ASPARTATE AMINO TRANSFERASE 23 U/L (10-37); BILIRUBIN,TOTAL 0.7 MG/DL (0.1-1.0); BLOOD UREA NITROGEN 20 MG/DL (7-18); CALCIUM 8.7 MG/DL (8.5-10.1); CHLORIDE 105 MMOL/L (99-107); CREATININE 1.25 MG/DL (0.40-0.90); GLUCOSE 96 MG/DL (70-104); POTASSIUM 4.2 MMOL/L (3.5-5.1); SODIUM 139 MMOL/L (135-145); TOTAL CARBON DIOXIDE 21.1 MMOL/L (24-32); TOTAL PROTEIN 7.2 G/DL (6.4-8.2); eGFR 42 ML/MIN
[2018-05-28 04:55] LABS: PLATELET COUNT 141 X10'3 (140-440)
[2018-05-28 04:56] LABS: ANISOCYTOSIS 2+; PLATELET ESTIMATE NORMAL
[2018-05-28] MEDS: chloestyramine/aspartame 4gm packet PO SCH (07:51)
[2018-05-28] MEDS: sotalol 80mg tablet PO SCH (07:53)
[2018-05-28] MEDS: duloxetine 30mg CAPSULE.DR PO SCH (07:53)
[2018-05-28] MEDS: pregabalin 75mg capsule PO SCH ×2 (07:54→20:18)
[2018-05-28] MEDS: aspirin 81mg tab.chew PO SCH (07:55)
[2018-05-28] MEDS: apixaban 5mg tablet PO SCH ×2 (07:55→20:18)
[2018-05-28] MEDS: levoTHYROXINE 25mcg tablet PO SCH (07:56)
[2018-05-28] MEDS: pantoprazole 40mg Tablet.DR PO SCH (07:56)
[2018-05-28] MEDS: folic acid 1mg tablet PO SCH (07:57)
[2018-05-28] MEDS: docusate sod 100mg capsule PO SCH ×2 (07:57→20:00)
[2018-05-28] MEDS ORDERED: amiodarone 150mg/dext, iso-os 100 ML IV ONE (08:55)
[2018-05-28] MEDS: potassium Cl 20 mEq SR tablet PO SCH (09:37)
[2018-05-28] MEDS: amiodarone/D5 360MG/200ML BAG 200 ML IV SCH ×3 (09:38→21:00)
[2018-05-28] MEDS: furosemide 20 MG/2 ML vial IV SCH ×2 (09:39→20:00)
[2018-05-28] MEDS: metoprolol tartrate 25mg tablet PO SCH ×2 (17:41→17:45)
[2018-05-28] MEDS: atorvastatin 10mg tablet PO SCH (20:18)
[2018-05-28] MEDS ORDERED: chloestyramine/aspartame 4gm packet PO SCH (21:00)
[2018-05-28] MEDS ORDERED: temazepam 15mg capsule PO PRN (22:20)
[2018-05-28] MEDS: HYDROcodone/acetaminophen 5mg/325mg tablet PO PRN (22:30)
[2018-05-29] VITALS (15 sets, daily range): BP systolic 89–124; BP diastolic 62–89
[2018-05-29] MEDS: tetrahydrozoline 0.05% 15ml ophthalmic drops EACHEYE SCH ×4 (02:00→20:00)
[2018-05-29] MEDS: amiodarone/D5 360MG/200ML BAG 200 ML IV SCH ×2 (03:08→15:37)
[2018-05-29] MEDS: duloxetine 30mg CAPSULE.DR PO SCH (08:41)
[2018-05-29] MEDS: pregabalin 75mg capsule PO SCH ×2 (08:42→20:24)
[2018-05-29] MEDS: pantoprazole 40mg Tablet.DR PO SCH (08:42)
[2018-05-29] MEDS: apixaban 5mg tablet PO SCH ×2 (08:42→20:24)
[2018-05-29] MEDS: folic acid 1mg tablet PO SCH (08:42)
[2018-05-29] MEDS: docusate sod 100mg capsule PO SCH ×2 (08:43→20:00)
[2018-05-29] MEDS: potassium Cl 20 mEq SR tablet PO SCH (08:43)
[2018-05-29] MEDS: chloestyramine/aspartame 4gm packet PO SCH (08:43)
[2018-05-29] MEDS: aspirin 81mg tab.chew PO SCH (08:43)
[2018-05-29] MEDS: metoprolol tartrate 25mg tablet PO SCH ×3 (08:44→20:23)
[2018-05-29] MEDS: furosemide 20 MG/2 ML vial IV SCH ×2 (08:44→20:00)
[2018-05-29] MEDS: levoTHYROXINE 25mcg tablet PO SCH (08:52)
[2018-05-29] MEDS ORDERED: fentaNYL/PF 50MCG/1 ML 2ML syringe IV ONE (16:00)
[2018-05-29] MEDS ORDERED: midazolam 2 mg/2 ml injection IV ONE (16:00)
[2018-05-29] MEDS ORDERED: fentaNYL/PF 50MCG/1 ML 2ML syringe ONE (16:28)
[2018-05-29] MEDS: amiodarone 200mg tablet PO SCH (20:24)
[2018-05-29] MEDS: atorvastatin 10mg tablet PO SCH (20:24)
[2018-05-29] MEDS: HYDROcodone/acetaminophen 5mg/325mg tablet PO PRN (22:29)
[2018-05-30 02:00] VITALS: BP 105/57
[2018-05-30] MEDS: tetrahydrozoline 0.05% 15ml ophthalmic drops EACHEYE SCH ×3 (02:00→14:00)
[2018-05-30 06:00] VITALS: BP 108/56
[2018-05-30] MEDS: docusate sod 100mg capsule PO SCH (08:00)
[2018-05-30] MEDS: pregabalin 75mg capsule PO SCH (08:12)
[2018-05-30] MEDS: apixaban 5mg tablet PO SCH (08:12)
[2018-05-30] MEDS: pantoprazole 40mg Tablet.DR PO SCH (08:12)
[2018-05-30] MEDS: duloxetine 30mg CAPSULE.DR PO SCH (08:12)
[2018-05-30] MEDS: aspirin 81mg tab.chew PO SCH (08:12)
[2018-05-30] MEDS: amiodarone 200mg tablet PO SCH (08:13)
[2018-05-30] MEDS: folic acid 1mg tablet PO SCH (08:13)
[2018-05-30] MEDS: levoTHYROXINE 25mcg tablet PO SCH (08:13)
[2018-05-30] MEDS: metoprolol tartrate 25mg tablet PO SCH (08:14)
[2018-05-30] MEDS: chloestyramine/aspartame 4gm packet PO SCH (08:15)
[2018-05-30 11:00] VITALS: BP 106/60
[2018-05-30] MEDS ORDERED: AMIO200T57 PO (12:31)
[2018-05-30] MEDS ORDERED: METO25TA6 PO (12:31)
[2018-05-30] MEDS: HYDROcodone/acetaminophen 5mg/325mg tablet PO PRN (14:11)
[2018-05-30 15:00] VITALS: BP 108/69
== END 2018-05-30 16:30 | disposition home or self-care (01) | DRG 308 ==
LOC: ER 15:45 → ED HOLD 19:12 → PCU 3S 20:47
PROVIDERS: ADMIT Internal Medicine; ATTEND Internal Medicine
PROC: 5A2204Z Restoration of Cardiac Rhythm, Single (ICD-10-PCS; principal; 2018-05-29)
DX: I48.0 Paroxysmal atrial fibrillation (principal); I50.31 Acute diastolic (congestive) heart failure; I25.119 Atherosclerotic heart disease of native coronary artery with unspecified angina pectoris; I48.92 Unspecified atrial flutter; E03.9 Hypothyroidism, unspecified; E11.9 Type 2 diabetes mellitus without complications; E66.01 Morbid (severe) obesity due to excess calories; E78.5 Hyperlipidemia, unspecified; F32.9 Major depressive disorder, single episode, unspecified; G47.33 Obstructive sleep apnea (adult) (pediatric); G89.29 Other chronic pain; I11.0 Hypertensive heart disease with heart failure; K21.9 Gastro-esophageal reflux disease without esophagitis; D64.9 Anemia, unspecified; Z90.49 Acquired absence of other specified parts of digestive tract; Z79.01 Long term (current) use of anticoagulants; Z79.899 Other long term (current) drug therapy; Z79.82 Long term (current) use of aspirin; Z87.440 Personal history of urinary (tract) infections; Z82.0 Family history of epilepsy and other diseases of the nervous system; Z82.3 Family history of stroke; Z82.49 Family history of ischemic heart disease and other diseases of the circulatory system; Z68.36 Body mass index [BMI] 36.0-36.9, adult
CPT/HCPCS: 36415; 71045; 80053; 82948; 83036; 83880; 84443; 84484; 85025; 85610; 85730; 87070; 93005; 94760; 99285; J0282; J1940; J2250; J3010; J3490; J7030

== ENCOUNTER 2018-06-02 12:04 | Emergency (ER) | payer MEDICARE, BC ==
[~2018-06-02] VITALS: Ht 165.1 cm; Wt 99.8 kg
[~2018-06-02 12:04] MED LIST changes: -ACET-2119 PO; +AMIO200T57 PO; -DOCU-148 PO; +METO25TA6 PO; -PIPE2.258 IV; -PPD ID; -PRAV40TA3 PO; +QUELT PO; -SOTA80TA73 PO
[2018-06-02] MEDS ORDERED: verapamil 2.5 mg/ml inj IV ONE (12:50)
[2018-06-02 13:04] LABS: BASOPHILS % (AUTO) 0.5 % (0-1); EOSINOPHILS # (AUTO) 0.1 X10'3 (0-0.9); EOSINOPHILS % (AUTO) 0.9 % (0-6); HEMOGLOBIN 9.7 g/dl (12.0-16.0); LYMPHOCYTES # (AUTO) 1.5 X10'3 (1.1-4.8); LYMPHOCYTES % (AUTO) 15.5 % (21-51); MEAN CORPUSCULAR HEMOGLOBIN 25.8 PG (27.0-31.0); MEAN CORPUSCULAR HGB CONC 33.6 % (33.0-36.5); MEAN CORPUSCULAR VOLUME 76.8 FL (78-98); MEAN PLATELET VOLUME 10.3 FL (7.4-10.4); MONOCYTES # (AUTO) 0.8 X10'3 (0-0.9); MONOCYTES % (AUTO) 8.2 % (2-12); NEUTROPHILS % (AUTO) 74.9 % (42-75); PLATELET COUNT 318 X10'3 (140-440); RED BLOOD COUNT 3.77 X10'6 (4.20-5.60); RED CELL DISTRIBUTION WIDTH 18.1 % (11.5-14.5); WHITE BLOOD COUNT 9.4 X10'3 (4.5-11.0)
[2018-06-02 13:17] LABS: ALANINE AMINOTRANSFERASE 26 U/L (12-78); ALBUMIN 2.4 G/DL (3.4-5.0); ALBUMIN/GLOBULIN RATIO 0.5 (1.1-1.5); ALKALINE PHOSPHATASE 141 IU/L (46-116); ANION GAP 15 (8-16); ASPARTATE AMINO TRANSFERASE 28 U/L (10-37); BILIRUBIN,TOTAL 0.9 MG/DL (0.1-1.0); BLOOD UREA NITROGEN 23 MG/DL (7-18); BUN/CREATININE RATIO 15.6 (6.6-38.0); CALCIUM 8.7 MG/DL (8.5-10.1); CHLORIDE 100 MMOL/L (99-107); CREATININE 1.47 MG/DL (0.40-0.90); GLUCOSE 119 MG/DL (70-104); POTASSIUM 4.3 MMOL/L (3.5-5.1); SODIUM 136 MMOL/L (135-145); TOTAL CARBON DIOXIDE 21.1 MMOL/L (24-32); TOTAL PROTEIN 7.6 G/DL (6.4-8.2); eGFR 35 ML/MIN
[2018-06-02 13:22] LABS: D-DIMER 5.54 MG/L FEU (0-0.50)
[2018-06-02 13:24] LABS: ANISOCYTOSIS 2+; LARGE PLATELETS FEW; PLATELET ESTIMATE NORMAL
[2018-06-02 13:27] LABS: MAGNESIUM 1.3 MG/DL (1.5-2.4)
[2018-06-02] MEDS ORDERED: normal saline 1000ML IV soln IVB ONE (14:15)
[2018-06-02] MEDS ORDERED: etomidate 2mg/ml inj. IV ONE (14:30)
[2018-06-02] MEDS ORDERED: fentaNYL/PF 50MCG/1 ML 2ML syringe IV ONE (14:30)
[2018-06-02] MEDS ORDERED: ondansetron/PF 4mg/2ml inj IV ONE (14:30)
[2018-06-02] MEDS ORDERED: amiodarone 150mg/dext, iso-os 100 ML IV ONE (14:30)
[2018-06-02 18:04] VITALS: BP 102/56
[2018-06-02 18:39] LABS: OCCULT BLOOD STOOL NEGATIVE (Neg)
== END 2018-06-02 18:06 | disposition home or self-care (01) ==
LOC: ER 12:05
DX: I48.0 Paroxysmal atrial fibrillation (principal); I12.9 Hypertensive chronic kidney disease with stage 1 through stage 4 chronic kidney disease, or unspecified chronic kidney disease; N18.9 Chronic kidney disease, unspecified; E11.22 Type 2 diabetes mellitus with diabetic chronic kidney disease; E07.9 Disorder of thyroid, unspecified; D64.9 Anemia, unspecified; I25.10 Atherosclerotic heart disease of native coronary artery without angina pectoris; Z79.899 Other long term (current) drug therapy; Z79.82 Long term (current) use of aspirin; Z90.49 Acquired absence of other specified parts of digestive tract
CPT/HCPCS: 36415; 71045; 80053; 82272; 83735; 83880; 84439; 84443; 84484; 85025; 85379; 92960; 93005; 94760; 96374; 96375; 99291; J0282; J2405; J3010; J3490; J7030; 99152; 99285; A4620

== ENCOUNTER 2018-06-23 11:04 | Inpatient (IN) | payer MEDICARE, BC ==
[~2018-06-23] VITALS: Ht 165.1 cm; Wt 98.9 kg
[~2018-06-23 11:04] MED LIST changes: +AMIO200T40 PO; -AMIO200T57 PO
[2018-06-23] MEDS ORDERED: metoprolol tartrate 1mg/ml inj IV ONE (11:25)
[2018-06-23 11:44] LABS: BASOPHILS % (AUTO) 0.2 % (0-1); EOSINOPHILS % (AUTO) 0.1 % (0-6); HEMATOCRIT 31.2 % (35.0-45.0); HEMOGLOBIN 10.3 g/dl (12.0-16.0); LYMPHOCYTES # (AUTO) 0.8 X10'3 (1.1-4.8); LYMPHOCYTES % (AUTO) 6.2 % (21-51); MEAN CORPUSCULAR HEMOGLOBIN 25.5 PG (27.0-31.0); MEAN CORPUSCULAR VOLUME 77.2 FL (78-98); MEAN PLATELET VOLUME 11.5 FL (7.4-10.4); MONOCYTES # (AUTO) 0.9 X10'3 (0-0.9); MONOCYTES % (AUTO) 7.1 % (2-12); NEUTROPHILS # (AUTO) 10.9 X10'3 (1.8-7.7); NEUTROPHILS % (AUTO) 86.4 % (42-75); PLATELET COUNT 177 X10'3 (140-440); RED BLOOD COUNT 4.04 X10'6 (4.20-5.60); RED CELL DISTRIBUTION WIDTH 18.6 % (11.5-14.5); WHITE BLOOD COUNT 12.6 X10'3 (4.5-11.0)
[2018-06-23 11:55] LABS: INR 1.2 INR; PARTIAL THROMBOPLASTIN TIME 60 SECONDS (22-32)
[2018-06-23 12:00] LABS: ALANINE AMINOTRANSFERASE 20 U/L (12-78); ALBUMIN 2.4 G/DL (3.4-5.0); ALBUMIN/GLOBULIN RATIO 0.5 (1.1-1.5); ALKALINE PHOSPHATASE 163 IU/L (46-116); ANION GAP 10 (8-16); ASPARTATE AMINO TRANSFERASE 18 U/L (10-37); BILIRUBIN,TOTAL 1.4 MG/DL (0.1-1.0); BLOOD UREA NITROGEN 15 MG/DL (7-18); BUN/CREATININE RATIO 12.4 (6.6-38.0); CALCIUM 8.2 MG/DL (8.5-10.1); CHLORIDE 100 MMOL/L (99-107); CREATININE 1.21 MG/DL (0.40-0.90); GLUCOSE 123 MG/DL (70-104); POTASSIUM 3.9 MMOL/L (3.5-5.1); SODIUM 135 MMOL/L (135-145); TOTAL PROTEIN 7.2 G/DL (6.4-8.2); eGFR 43 ML/MIN
[2018-06-23 12:04] LABS: PLATELET ESTIMATE NORMAL
[2018-06-23 12:05] LABS: ANISOCYTOSIS 2+; GIANT PLATELET FEW; LARGE PLATELETS FEW; MICROCYTOSIS 2+
[2018-06-23 12:06] LABS: MAGNESIUM 1.2 MG/DL (1.5-2.4)
[2018-06-23] MEDS ORDERED: amiodarone 150mg/dext, iso-os 100 ML IV ONE (12:35)
[2018-06-23] MEDS ORDERED: potassium Cl 40MEQ/NS 500ml 500 ML IV PRN ×2 (15:15)
[2018-06-23] MEDS ORDERED: potassium Cl 20 mEq SR tablet PO PRN ×2 (15:15)
[2018-06-23] MEDS ORDERED: magnesium 4gm in 100ml NS 100 ML IV PRN (15:15)
[2018-06-23] MEDS ORDERED: morphine 4 MG/ML inj SYRINge IV PRN ×2 (15:15)
[2018-06-23] MEDS ORDERED: ondansetron/PF 4mg/2ml inj IV PRN (15:15)
[2018-06-23] MEDS ORDERED: magnesium 1gm/100ml D5W IVPB 100 ML IV PRN (15:15)
[2018-06-23] MEDS: magnesium Cl slow-release 64mg tablet PO PRN (15:58)
[2018-06-23 17:00] VITALS: BP 113/65
[2018-06-23 17:30] LABS: ALANINE AMINOTRANSFERASE 22 U/L (12-78); ALBUMIN 2.2 G/DL (3.4-5.0); ALBUMIN/GLOBULIN RATIO 0.5 (1.1-1.5); ALKALINE PHOSPHATASE 146 IU/L (46-116); ASPARTATE AMINO TRANSFERASE 18 U/L (10-37); BILIRUBIN,DIRECT 0.3 MG/DL (0-0.3); BILIRUBIN,TOTAL 1.2 MG/DL (0.1-1.0); TOTAL PROTEIN 6.7 G/DL (6.4-8.2)
[2018-06-23 18:00] VITALS: BP 118/64
[2018-06-23] MEDS ORDERED: MESSAGE TO PHARMACY PO ONE (18:20)
[2018-06-23] MEDS ORDERED: dextrose ORAL solution 15 GM/59 ML bottle PO PRN ×2 (18:20)
[2018-06-23] MEDS ORDERED: dextrose 50%-water 50ml dispensing syringe IV PRN ×2 (18:20)
[2018-06-23] MEDS ORDERED: insulin Lispro (HumaLOG) vial - multi-dose SQ SCH (18:20)
[2018-06-23] MEDS ORDERED: glucagon, human recombinant 1mg kit SUBCUT PRN (18:20)
[2018-06-23] MEDS: apixaban 5mg tablet PO SCH (20:22)
[2018-06-23] MEDS: pregabalin 25mg capsule PO SCH (20:22)
[2018-06-23] MEDS: atorvastatin 10mg tablet PO SCH (20:22)
[2018-06-23] MEDS: amiodarone 200mg tablet PO SCH (20:22)
[2018-06-23] MEDS: chloestyramine/aspartame 4gm packet PO SCH (20:24)
[2018-06-23] MEDS: tetrahydrozoline 0.05% 15ml ophthalmic drops EACHEYE SCH (20:31)
[2018-06-23] MEDS: insulin glargine (Lantus) pen - multi-dose SQ SCH (21:00)
[2018-06-23 22:00] VITALS: BP 96/73
[2018-06-24] MEDS: tetrahydrozoline 0.05% 15ml ophthalmic drops EACHEYE SCH ×4 (02:30→20:08)
[2018-06-24 03:00] VITALS: BP 128/64
[2018-06-24 05:21] LABS: BASOPHILS % (AUTO) 0.2 % (0-1); EOSINOPHILS # (AUTO) 0.2 X10'3 (0-0.9); EOSINOPHILS % (AUTO) 2.3 % (0-6); HEMATOCRIT 29.4 % (35.0-45.0); HEMOGLOBIN 9.6 g/dl (12.0-16.0); LYMPHOCYTES # (AUTO) 0.9 X10'3 (1.1-4.8); LYMPHOCYTES % (AUTO) 9.4 % (21-51); MEAN CORPUSCULAR HEMOGLOBIN 25.2 PG (27.0-31.0); MEAN CORPUSCULAR HGB CONC 32.8 % (33.0-36.5); MEAN CORPUSCULAR VOLUME 76.7 FL (78-98); MEAN PLATELET VOLUME 11.6 FL (7.4-10.4); MONOCYTES # (AUTO) 0.8 X10'3 (0-0.9); MONOCYTES % (AUTO) 7.8 % (2-12); NEUTROPHILS # (AUTO) 7.9 X10'3 (1.8-7.7); NEUTROPHILS % (AUTO) 80.3 % (42-75); PLATELET COUNT 175 X10'3 (140-440); RED BLOOD COUNT 3.84 X10'6 (4.20-5.60); RED CELL DISTRIBUTION WIDTH 18.5 % (11.5-14.5); WHITE BLOOD COUNT 9.8 X10'3 (4.5-11.0)
[2018-06-24 05:45] LABS: ALBUMIN 2.2 G/DL (3.4-5.0); ANION GAP 10 (8-16); BLOOD UREA NITROGEN 17 MG/DL (7-18); BUN/CREATININE RATIO 13.8 (6.6-38.0); CALCIUM 8.4 MG/DL (8.5-10.1); CHLORIDE 101 MMOL/L (99-107); CHOL/HDL RATIO 3.8 (0.00-4.99); CHOLESTEROL 111 MG/DL (0-200); CREATININE 1.23 MG/DL (0.40-0.90); GLUCOSE 118 MG/DL (70-104); HDL CHOLESTEROL 29 MG/DL (35-60); LDL CHOLESTEROL 65 MG/DL (50-100); MAGNESIUM 1.4 MG/DL (1.5-2.4); POTASSIUM 3.9 MMOL/L (3.5-5.1); SODIUM 136 MMOL/L (135-145); TOTAL CARBON DIOXIDE 25.2 MMOL/L (24-32); TRIGLYCERIDES 104 MG/DL (20-135); eGFR 42 ML/MIN
[2018-06-24 05:53] LABS: ANISOCYTOSIS 2+; PLATELET ESTIMATE NORMAL
[2018-06-24 05:54] LABS: HYPOCHROMASIA 1+
[2018-06-24 06:56] VITALS: BP 110/59
[2018-06-24] MEDS: pregabalin 25mg capsule PO SCH ×2 (07:14→20:08)
[2018-06-24] MEDS: amiodarone 200mg tablet PO SCH ×2 (07:14→20:07)
[2018-06-24] MEDS: apixaban 5mg tablet PO SCH ×2 (07:15→20:07)
[2018-06-24] MEDS: folic acid 1mg tablet PO SCH (07:15)
[2018-06-24] MEDS: duloxetine 30mg CAPSULE.DR PO SCH (07:15)
[2018-06-24] MEDS: levoTHYROXINE 25mcg tablet PO SCH (07:15)
[2018-06-24] MEDS: pantoprazole 40mg Tablet.DR PO SCH (07:15)
[2018-06-24] MEDS: lisinopril 5mg tablet PO SCH (07:15)
[2018-06-24] MEDS: magnesium Cl slow-release 64mg tablet PO PRN (07:15)
[2018-06-24] MEDS ORDERED: HYDROcodone/acetaminophen 5mg/325mg tablet PO PRN (07:40)
[2018-06-24] MEDS: K and/or MAG REPLACEMENT MC SCH (08:00)
[2018-06-24] MEDS: metoprolol tartrate 12.5mg (1/2 tablet) PO SCH ×2 (08:14→20:07)
[2018-06-24 11:00] VITALS: BP 101/58
[2018-06-24] MEDS ORDERED: fentaNYL/PF 50MCG/1 ML 2ML syringe ONE (14:13)
[2018-06-24] MEDS ORDERED: MIDAZolam 5mg/5ml vial ONE (14:14)
[2018-06-24] MEDS ORDERED: LIDOcaine Viscous 15ml cup ONE (14:14)
[2018-06-24] MEDS: HYDROcodone/acetaminophen 5mg/325mg tablet PO PRN (14:44)
[2018-06-24 15:00] VITALS: BP 115/67
[2018-06-24 19:00] VITALS: BP 94/58
[2018-06-24] MEDS: chloestyramine/aspartame 4gm packet PO SCH (20:07)
[2018-06-24] MEDS: atorvastatin 10mg tablet PO SCH (20:07)
[2018-06-24] MEDS: insulin glargine (Lantus) pen - multi-dose SQ SCH (21:00)
[2018-06-24] MEDS ORDERED: temazepam 15mg capsule PO ONE ×4 (22:50→23:05)
[2018-06-24 23:00] VITALS: BP 107/67
[2018-06-25] VITALS (28 sets, daily range): BP systolic 62–151; BP diastolic 38–82
[2018-06-25] MEDS: tetrahydrozoline 0.05% 15ml ophthalmic drops EACHEYE SCH ×4 (01:46→20:00)
[2018-06-25 05:36] LABS: BASOPHILS % (AUTO) 0.2 % (0-1); EOSINOPHILS # (AUTO) 0.4 X10'3 (0-0.9); EOSINOPHILS % (AUTO) 3.4 % (0-6); HEMATOCRIT 30.1 % (35.0-45.0); LYMPHOCYTES # (AUTO) 1.2 X10'3 (1.1-4.8); LYMPHOCYTES % (AUTO) 10.8 % (21-51); MEAN CORPUSCULAR HEMOGLOBIN 25.3 PG (27.0-31.0); MEAN CORPUSCULAR HGB CONC 33.2 % (33.0-36.5); MEAN CORPUSCULAR VOLUME 76.2 FL (78-98); MEAN PLATELET VOLUME 11.4 FL (7.4-10.4); MONOCYTES # (AUTO) 0.9 X10'3 (0-0.9); MONOCYTES % (AUTO) 8.8 % (2-12); NEUTROPHILS # (AUTO) 8.2 X10'3 (1.8-7.7); NEUTROPHILS % (AUTO) 76.8 % (42-75); PLATELET COUNT 193 X10'3 (140-440); RED BLOOD COUNT 3.95 X10'6 (4.20-5.60); RED CELL DISTRIBUTION WIDTH 18.7 % (11.5-14.5); WHITE BLOOD COUNT 10.7 X10'3 (4.5-11.0)
[2018-06-25 05:50] LABS: ANION GAP 11 (8-16); BLOOD UREA NITROGEN 18 MG/DL (7-18); BUN/CREATININE RATIO 15.4 (6.6-38.0); CALCIUM 8.3 MG/DL (8.5-10.1); CHLORIDE 100 MMOL/L (99-107); CREATININE 1.17 MG/DL (0.40-0.90); GLUCOSE 114 MG/DL (70-104); MAGNESIUM 1.3 MG/DL (1.5-2.4); POTASSIUM 4.2 MMOL/L (3.5-5.1); SODIUM 134 MMOL/L (135-145); TOTAL CARBON DIOXIDE 22.8 MMOL/L (24-32); eGFR 45 ML/MIN
[2018-06-25 06:43] LABS: LARGE PLATELETS FEW; PLATELET ESTIMATE NORMAL
[2018-06-25 06:44] LABS: ANISOCYTOSIS 2+
[2018-06-25] MEDS: pantoprazole 40mg Tablet.DR PO SCH ×2 (07:16→20:07)
[2018-06-25] MEDS: levoTHYROXINE 25mcg tablet PO SCH (07:17)
[2018-06-25] MEDS: folic acid 1mg tablet PO SCH (07:17)
[2018-06-25] MEDS: amiodarone 200mg tablet PO SCH ×3 (07:17→20:07)
[2018-06-25] MEDS: apixaban 5mg tablet PO SCH ×2 (07:17→20:06)
[2018-06-25] MEDS: duloxetine 30mg CAPSULE.DR PO SCH (07:17)
[2018-06-25] MEDS: metoprolol tartrate 12.5mg (1/2 tablet) PO SCH (07:17)
[2018-06-25] MEDS: lisinopril 5mg tablet PO SCH (07:18)
[2018-06-25] MEDS: pregabalin 25mg capsule PO SCH ×2 (07:18→20:08)
[2018-06-25] MEDS: K and/or MAG REPLACEMENT MC SCH (07:22)
[2018-06-25] MEDS: magnesium Cl slow-release 64mg tablet PO PRN (07:25)
[2018-06-25] MEDS: HYDROcodone/acetaminophen 5mg/325mg tablet PO PRN ×2 (07:25→20:10)
[2018-06-25] MEDS ORDERED: amiodarone/D5 360MG/200ML BAG 200 ML IV SCH (09:23)
[2018-06-25] MEDS ORDERED: amiodarone 150mg/dext, iso-os 100 ML IV ONE (09:25)
[2018-06-25] MEDS ORDERED: DOPamine 400mg/D5W 250ml 250 ML IV ONE (11:55)
[2018-06-25 12:06] LABS: ABG BASE EXCESS -5.2 mmol/L (-2.0-3.0); ABG HCO3 18.3 mmol/L (22.0-26.0); ABG OXYGEN SATURATION 89.7 % (95-98); ABG PCO2 (T) 29.2 mmHg (32.0-45.0); ABG PH (T) 7.415 (7.350-7.450); ABG PO2 (T) 59.7 mmHg (83-108); ALLEN'S TEST Positive; FCOHb 0.3 % (0.5-1.5); FLOW 5 L/min; FMetHb 0.2 % (0.3-1.12); FO2Hb 89.3 % (94-100)
[2018-06-25] MEDS ORDERED: NORepinephrine 8mg/ 250ml NS 250 ML IV ONE (12:31)
[2018-06-25] MEDS ORDERED: NORepinephrine 8mg/ 250ml NS 250 ML IV SCH (12:34)
[2018-06-25 12:40] LABS: OXYGEN SATURATION (MIXED VEN) 56.7 % (60-80); PO2 MIXED VENOUS (TEMP COR) 33.1 mmHg (35-46)
[2018-06-25 13:18] LABS: MAGNESIUM 1.4 MG/DL (1.5-2.4); PHOSPHORUS 4.5 MG/DL (2.3-4.5); POTASSIUM 4.3 MMOL/L (3.5-5.1)
[2018-06-25 14:20] LABS: CLARITY,URINE CLOUDY (Clear); COLOR,URINE YELLOW (Yellow); GLUCOSE, URINE NEGATIVE (Neg); KETONES,URINE TRACE mg/dl (Neg); LEUKOCYTE ESTERASE ,URINE SMALL (Neg); NITRITES, URINE POSITIVE (Neg); OCCULT BLOOD,URINE NEGATIVE (Neg); PROTEIN,URINE 30 mg/dl (Neg)
[2018-06-25 14:25] LABS: UA COLLECTION TYPE FOLEY CATH
[2018-06-25 14:27] LABS: SQUAMOUS EPITHELIAL CELL,UR MODERATE /LPF (FEW)
[2018-06-25 14:28] LABS: BACTERIA,URINE 3+ /HPF (Neg)
[2018-06-25 14:29] LABS: HYALINE CASTS 0-3 /LPF (NEGATIVE)
[2018-06-25 14:31] LABS: AMORPHOUS URATES 2+
[2018-06-25 14:33] LABS: TRANSITIONAL EPI CELLS,URINE FEW /HPF
[2018-06-25] MEDS: atorvastatin 10mg tablet PO SCH (20:07)
[2018-06-25] MEDS: insulin glargine (Lantus) pen - multi-dose SQ SCH (21:00)
[2018-06-25] MEDS: chloestyramine/aspartame 4gm packet PO SCH (21:23)
[2018-06-26] VITALS (17 sets, daily range): BP systolic 98–145; BP diastolic 51–82
[2018-06-26] MEDS: tetrahydrozoline 0.05% 15ml ophthalmic drops EACHEYE SCH ×4 (01:54→19:59)
[2018-06-26 04:54] LABS: ALBUMIN 1.8 G/DL (3.4-5.0); ANION GAP 9 (8-16); BLOOD UREA NITROGEN 21 MG/DL (7-18); BUN/CREATININE RATIO 16.7 (6.6-38.0); CALCIUM 8.2 MG/DL (8.5-10.1); CHLORIDE 102 MMOL/L (99-107); CREATININE 1.26 MG/DL (0.40-0.90); GLUCOSE 114 MG/DL (70-104); MAGNESIUM 2.4 MG/DL (1.5-2.4); POTASSIUM 3.9 MMOL/L (3.5-5.1); SODIUM 135 MMOL/L (135-145); eGFR 41 ML/MIN
[2018-06-26 06:21] LABS: PLATELET ESTIMATE NORMAL
[2018-06-26 06:22] LABS: ANISOCYTOSIS 2+; LARGE PLATELETS FEW
[2018-06-26] MEDS: K and/or MAG REPLACEMENT MC SCH (08:00)
[2018-06-26] MEDS: apixaban 5mg tablet PO SCH ×2 (08:02→19:57)
[2018-06-26] MEDS: amiodarone 200mg tablet PO SCH ×3 (08:03→19:57)
[2018-06-26] MEDS: folic acid 1mg tablet PO SCH (08:03)
[2018-06-26] MEDS: pantoprazole 40mg Tablet.DR PO SCH ×2 (08:03→19:57)
[2018-06-26] MEDS: pregabalin 25mg capsule PO SCH ×2 (08:03→19:56)
[2018-06-26] MEDS: levoTHYROXINE 25mcg tablet PO SCH (08:03)
[2018-06-26] MEDS: duloxetine 30mg CAPSULE.DR PO SCH (08:03)
[2018-06-26 10:31] LABS: BASOPHILS % (AUTO) 0.4 % (0-1); EOSINOPHILS # (AUTO) 0.2 X10'3 (0-0.9); EOSINOPHILS % (AUTO) 2.9 % (0-6); HEMATOCRIT 27.7 % (35.0-45.0); HEMOGLOBIN 9.1 g/dl (12.0-16.0); LYMPHOCYTES # (AUTO) 1.2 X10'3 (1.1-4.8); LYMPHOCYTES % (AUTO) 15.8 % (21-51); MEAN CORPUSCULAR HGB CONC 32.7 % (33.0-36.5); MEAN CORPUSCULAR VOLUME 76.5 FL (78-98); MEAN PLATELET VOLUME 11.1 FL (7.4-10.4); MONOCYTES # (AUTO) 0.7 X10'3 (0-0.9); MONOCYTES % (AUTO) 8.8 % (2-12); NEUTROPHILS # (AUTO) 5.4 X10'3 (1.8-7.7); NEUTROPHILS % (AUTO) 72.1 % (42-75); PLATELET COUNT 183 X10'3 (140-440); RED BLOOD COUNT 3.62 X10'6 (4.20-5.60); RED CELL DISTRIBUTION WIDTH 18.3 % (11.5-14.5); WHITE BLOOD COUNT 7.5 X10'3 (4.5-11.0)
[2018-06-26] MEDS: HYDROcodone/acetaminophen 5mg/325mg tablet PO PRN ×2 (13:56→22:40)
[2018-06-26] MEDS: atorvastatin 10mg tablet PO SCH (19:56)
[2018-06-26] MEDS: chloestyramine/aspartame 4gm packet PO SCH (19:57)
[2018-06-26] MEDS: insulin glargine (Lantus) pen - multi-dose SQ SCH (21:00)
[2018-06-27] MEDS: tetrahydrozoline 0.05% 15ml ophthalmic drops EACHEYE SCH ×4 (02:00→20:13)
[2018-06-27 02:10] LABS: BASOPHILS # (AUTO) 0.1 X10'3 (0-0.2); BASOPHILS % (AUTO) 0.6 % (0-1); EOSINOPHILS # (AUTO) 0.4 X10'3 (0-0.9); HEMATOCRIT 30.6 % (35.0-45.0); HEMOGLOBIN 10.1 g/dl (12.0-16.0); LYMPHOCYTES # (AUTO) 2.3 X10'3 (1.1-4.8); LYMPHOCYTES % (AUTO) 19.7 % (21-51); MEAN CORPUSCULAR HEMOGLOBIN 25.3 PG (27.0-31.0); MEAN CORPUSCULAR HGB CONC 32.9 % (33.0-36.5); MEAN CORPUSCULAR VOLUME 76.9 FL (78-98); MONOCYTES # (AUTO) 0.9 X10'3 (0-0.9); MONOCYTES % (AUTO) 7.8 % (2-12); NEUTROPHILS # (AUTO) 8.1 X10'3 (1.8-7.7); NEUTROPHILS % (AUTO) 68.9 % (42-75); RED BLOOD COUNT 3.98 X10'6 (4.20-5.60); RED CELL DISTRIBUTION WIDTH 18.6 % (11.5-14.5); WHITE BLOOD COUNT 11.7 X10'3 (4.5-11.0)
[2018-06-27 02:20] LABS: ALBUMIN 2.1 G/DL (3.4-5.0); ANION GAP 10 (8-16); BLOOD UREA NITROGEN 19 MG/DL (7-18); BUN/CREATININE RATIO 13.8 (6.6-38.0); CALCIUM 8.5 MG/DL (8.5-10.1); CHLORIDE 101 MMOL/L (99-107); CREATININE 1.38 MG/DL (0.40-0.90); GLUCOSE 119 MG/DL (70-104); MAGNESIUM 1.9 MG/DL (1.5-2.4); POTASSIUM 4.3 MMOL/L (3.5-5.1); SODIUM 134 MMOL/L (135-145); TOTAL CARBON DIOXIDE 22.9 MMOL/L (24-32); eGFR 37 ML/MIN
[2018-06-27 02:35] LABS: PLATELET COUNT 330 X10'3 (140-440)
[2018-06-27 03:00] VITALS: BP 103/61
[2018-06-27 06:00] VITALS: BP 114/67
[2018-06-27] MEDS: levoTHYROXINE 25mcg tablet PO SCH (07:19)
[2018-06-27] MEDS: folic acid 1mg tablet PO SCH (07:21)
[2018-06-27] MEDS: duloxetine 30mg CAPSULE.DR PO SCH (07:21)
[2018-06-27] MEDS: amiodarone 200mg tablet PO SCH ×3 (07:21→20:12)
[2018-06-27] MEDS: apixaban 5mg tablet PO SCH ×2 (07:21→20:13)
[2018-06-27] MEDS: pregabalin 25mg capsule PO SCH ×2 (07:23→20:12)
[2018-06-27] MEDS: pantoprazole 40mg Tablet.DR PO SCH ×2 (07:24→20:12)
[2018-06-27] MEDS: HYDROcodone/acetaminophen 5mg/325mg tablet PO PRN ×2 (07:39→20:22)
[2018-06-27] MEDS: K and/or MAG REPLACEMENT MC SCH (08:00)
[2018-06-27 11:00] VITALS: BP 116/69
[2018-06-27] MEDS: cefepime 1GM/NS ADD-VANTAGE 100 ML IV SCH ×2 (11:28→15:30)
[2018-06-27] MEDS: vancomycin inj 1,250 MG in normal saline 250ml IV soln 250 ML IV SCH (13:04)
[2018-06-27 15:00] VITALS: BP 143/77
[2018-06-27 19:00] VITALS: BP 157/85
[2018-06-27] MEDS: chloestyramine/aspartame 4gm packet PO SCH (20:12)
[2018-06-27] MEDS: lactobacillus rhamnosus 10,000 MMU CELLS/CAPSULE PO SCH (20:12)
[2018-06-27] MEDS: furosemide 20MG tablet PO SCH (20:12)
[2018-06-27] MEDS: atorvastatin 10mg tablet PO SCH (20:12)
[2018-06-27] MEDS: insulin glargine (Lantus) pen - multi-dose SQ SCH (21:00)
[2018-06-27 23:00] VITALS: BP 153/85
[2018-06-28] MEDS: cefepime 1GM/NS ADD-VANTAGE 100 ML IV SCH ×3 (00:50→16:20)
[2018-06-28] MEDS: tetrahydrozoline 0.05% 15ml ophthalmic drops EACHEYE SCH ×3 (01:00→14:00)
[2018-06-28 03:00] VITALS: BP 128/65
[2018-06-28 03:51] LABS: ALBUMIN 1.8 G/DL (3.4-5.0); ANION GAP 9 (8-16); BLOOD UREA NITROGEN 18 MG/DL (7-18); BUN/CREATININE RATIO 14.3 (6.6-38.0); CALCIUM 8.2 MG/DL (8.5-10.1); CHLORIDE 105 MMOL/L (99-107); CREATININE 1.26 MG/DL (0.40-0.90); GLUCOSE 102 MG/DL (70-104); MAGNESIUM 1.6 MG/DL (1.5-2.4); POTASSIUM 4.2 MMOL/L (3.5-5.1); SODIUM 137 MMOL/L (135-145); TOTAL CARBON DIOXIDE 23.2 MMOL/L (24-32); eGFR 41 ML/MIN
[2018-06-28 03:55] LABS: BASOPHILS # (AUTO) 0.1 X10'3 (0-0.2); BASOPHILS % (AUTO) 0.9 % (0-1); EOSINOPHILS # (AUTO) 0.2 X10'3 (0-0.9); EOSINOPHILS % (AUTO) 3.7 % (0-6); HEMATOCRIT 26.5 % (35.0-45.0); HEMOGLOBIN 8.7 g/dl (12.0-16.0); LYMPHOCYTES # (AUTO) 1.3 X10'3 (1.1-4.8); LYMPHOCYTES % (AUTO) 20.8 % (21-51); MEAN CORPUSCULAR HEMOGLOBIN 25.2 PG (27.0-31.0); MEAN CORPUSCULAR HGB CONC 32.8 % (33.0-36.5); MEAN CORPUSCULAR VOLUME 76.8 FL (78-98); MEAN PLATELET VOLUME 10.4 FL (7.4-10.4); MONOCYTES # (AUTO) 0.5 X10'3 (0-0.9); MONOCYTES % (AUTO) 7.9 % (2-12); NEUTROPHILS % (AUTO) 66.7 % (42-75); PLATELET COUNT 213 X10'3 (140-440); RED BLOOD COUNT 3.45 X10'6 (4.20-5.60); RED CELL DISTRIBUTION WIDTH 16.9 % (11.5-14.5); WHITE BLOOD COUNT 6.1 X10'3 (4.5-11.0)
[2018-06-28 06:00] VITALS: BP 132/67
[2018-06-28] MEDS: lactobacillus rhamnosus 10,000 MMU CELLS/CAPSULE PO SCH (07:11)
[2018-06-28] MEDS: folic acid 1mg tablet PO SCH (07:11)
[2018-06-28] MEDS: levoTHYROXINE 25mcg tablet PO SCH (07:12)
[2018-06-28] MEDS: pantoprazole 40mg Tablet.DR PO SCH (07:13)
[2018-06-28] MEDS: apixaban 5mg tablet PO SCH (07:13)
[2018-06-28] MEDS: furosemide 20MG tablet PO SCH (07:13)
[2018-06-28] MEDS: duloxetine 30mg CAPSULE.DR PO SCH (07:13)
[2018-06-28] MEDS: amiodarone 200mg tablet PO SCH ×2 (07:14→12:41)
[2018-06-28] MEDS: pregabalin 25mg capsule PO SCH (07:15)
[2018-06-28] MEDS: HYDROcodone/acetaminophen 5mg/325mg tablet PO PRN (07:43)
[2018-06-28] MEDS: K and/or MAG REPLACEMENT MC SCH (08:00)
[2018-06-28 11:00] VITALS: BP 139/83
[2018-06-28] MEDS ORDERED: METR500T PO (12:37)
[2018-06-28] MEDS ORDERED: AMIO200T40 PO (12:37)
[2018-06-28] MEDS ORDERED: LEVO500T2 PO (12:37)
[2018-06-28] MEDS ORDERED: FURO20TA4 PO (12:37)
[2018-06-28] MEDS: vancomycin inj 1,250 MG in normal saline 250ml IV soln 250 ML IV SCH (12:41)
[2018-06-28 13:19] LABS: OCCULT BLOOD STOOL NEGATIVE (Neg)
[2018-06-28 15:00] VITALS: BP 139/89
[2018-06-30] MEDS ORDERED: VANCOMYCIN LEVEL IV ONE (12:30)
== END 2018-06-28 18:40 | disposition home health service (06) | DRG 308 ==
LOC: ER 11:05 → INTOOBSV 15:14 → OBSVTOIN 15:14 → ED HOLD 15:14 → PCU 3S 16:35 → ICU 2S 06-25 11:45 → PCU 3S 06-26 13:03
PROVIDERS: ADMIT Internal Medicine; ATTEND Internal Medicine
PROC: 02HV33Z Insertion of Infusion Device into Superior Vena Cava, Percutaneous Approach (ICD-10-PCS; principal; 2018-06-25)
PROC: B548ZZA Ultrasonography of Superior Vena Cava, Guidance (ICD-10-PCS; 2018-06-25)
PROC: 5A12012 Performance of Cardiac Output, Single, Manual (ICD-10-PCS; 2018-06-25)
DX: I48.1 Persistent atrial fibrillation (principal); J18.9 Pneumonia, unspecified organism; N17.9 Acute kidney failure, unspecified; R57.9 Shock, unspecified; I13.0 Hypertensive heart and chronic kidney disease with heart failure and stage 1 through stage 4 chronic kidney disease, or unspecified chronic kidney disease; I48.92 Unspecified atrial flutter; E66.01 Morbid (severe) obesity due to excess calories; N18.3 Chronic kidney disease, stage 3 (moderate); I44.1 Atrioventricular block, second degree; D63.8 Anemia in other chronic diseases classified elsewhere; E03.9 Hypothyroidism, unspecified; E11.22 Type 2 diabetes mellitus with diabetic chronic kidney disease; E78.5 Hyperlipidemia, unspecified; F32.9 Major depressive disorder, single episode, unspecified; G47.33 Obstructive sleep apnea (adult) (pediatric); G89.4 Chronic pain syndrome; I25.10 Atherosclerotic heart disease of native coronary artery without angina pectoris; I50.9 Heart failure, unspecified; K21.9 Gastro-esophageal reflux disease without esophagitis; T44.7X5A Adverse effect of beta-adrenoreceptor antagonists, initial encounter; Z90.49 Acquired absence of other specified parts of digestive tract; Z88.8 Allergy status to other drugs, medicaments and biological substances; Z79.01 Long term (current) use of anticoagulants; Z79.899 Other long term (current) drug therapy; Z87.440 Personal history of urinary (tract) infections; Z82.0 Family history of epilepsy and other diseases of the nervous system; Z82.3 Family history of stroke; Z82.49 Family history of ischemic heart disease and other diseases of the circulatory system; Y92.239 Unspecified place in hospital as the place of occurrence of the external cause; Z68.36 Body mass index [BMI] 36.0-36.9, adult
CPT/HCPCS: 36415; 36600; 71045; 76604; 80048; 80053; 80061; 80076; 81001; 82272; 82803; 82810; 82948; 83735; 83880; 84100; 84132; 84439; 84443; 84484; 85018; 85025; 85610; 85730; 87070; 87077; 87088; 87186; 93005; A6213; A6257; A6402; C1758; J0282; J0692; J1265; J1815; J2250; J2270; J3010; J3370; J3475; J3490; J7030

== ENCOUNTER 2018-07-17 03:17 | Outpatient (CLI) | payer MEDICARE, BC ==
[~2018-07-17 03:17] MED LIST changes: -ALB0.5UD IH; -ASPI-611 PO; +FURO20TA4 PO; -METO25TA6 PO; -NITR0.4T SL; -ONDA8TAB9 PO; -POLY17PO10 PO
== END 2018-07-17 23:59 | disposition home or self-care (01) ==
LOC: DIABETIC 03:17
PROVIDERS: ATTEND Family Medicine
DX: E11.65 Type 2 diabetes mellitus with hyperglycemia (principal); F10.10 Alcohol abuse, uncomplicated; I10 Essential (primary) hypertension; Z79.899 Other long term (current) drug therapy; Z87.891 Personal history of nicotine dependence
CPT/HCPCS: G0108

== ENCOUNTER 2018-10-16 01:31 | Outpatient (CLI) | payer MEDICARE, BC | END 2018-10-16 23:59 | disposition home or self-care (01) | LOC: DIABETIC 01:31 | PROVIDERS: ATTEND Family Medicine | DX: E11.65 Type 2 diabetes mellitus with hyperglycemia (principal); I10 Essential (primary) hypertension; Z79.899 Other long term (current) drug therapy; Z87.891 Personal history of nicotine dependence | CPT/HCPCS: G0108 ==

== ENCOUNTER 2018-10-27 09:38 | Outpatient (CLI) | payer MEDICARE, BC ==
[2018-10-27 10:40] LABS: BASOPHILS % (AUTO) 0.6 % (0-1); EOSINOPHILS # (AUTO) 0.2 X10'3 (0-0.9); EOSINOPHILS % (AUTO) 2.4 % (0-6); HEMATOCRIT 36.5 % (35.0-45.0); HEMOGLOBIN 11.6 g/dl (12.0-16.0); LYMPHOCYTES # (AUTO) 1.3 X10'3 (1.1-4.8); LYMPHOCYTES % (AUTO) 18.8 % (21-51); MEAN CORPUSCULAR HEMOGLOBIN 24.6 PG (27.0-31.0); MEAN CORPUSCULAR HGB CONC 31.9 % (33.0-36.5); MEAN PLATELET VOLUME 12.4 FL (7.4-10.4); MONOCYTES # (AUTO) 0.7 X10'3 (0-0.9); MONOCYTES % (AUTO) 10.4 % (2-12); NEUTROPHILS # (AUTO) 4.7 X10'3 (1.8-7.7); NEUTROPHILS % (AUTO) 67.8 % (42-75); PLATELET COUNT 166 X10'3 (140-440); RED BLOOD COUNT 4.74 X10'6 (4.20-5.60); RED CELL DISTRIBUTION WIDTH 17.5 % (11.5-14.5); WHITE BLOOD COUNT 6.9 X10'3 (4.5-11.0)
[2018-10-27 10:48] LABS: ALBUMIN 3.4 G/DL (3.4-5.0); ANION GAP 9 (8-16); BLOOD UREA NITROGEN 27 MG/DL (7-18); BUN/CREATININE RATIO 16.3 (6.6-38.0); CALCIUM 8.8 MG/DL (8.5-10.1); CHLORIDE 105 MMOL/L (99-107); CREATININE 1.66 MG/DL (0.40-0.90); GLUCOSE 86 MG/DL (70-104); POTASSIUM 4.2 MMOL/L (3.5-5.1); SODIUM 142 MMOL/L (135-145); TOTAL CARBON DIOXIDE 27.7 MMOL/L (24-32); eGFR 30 ML/MIN
[2018-10-27 11:15] LABS: PLATELET ESTIMATE NORMAL
[2018-10-27 11:16] LABS: LARGE PLATELETS FEW
[2018-10-27 13:04] LABS: INR 1.1 INR; PARTIAL THROMBOPLASTIN TIME 46 SECONDS (22-32)
== END 2018-10-27 23:59 | disposition home or self-care (01) ==
LOC: SSTAY O 09:38 → EDSTATUS 10-29 17:00
PROVIDERS: ATTEND Internal Medicine Interventional Cardiology
DX: Z01.810 Encounter for preprocedural cardiovascular examination (principal); I48.1 Persistent atrial fibrillation; I10 Essential (primary) hypertension; I70.213 Atherosclerosis of native arteries of extremities with intermittent claudication, bilateral legs; G47.33 Obstructive sleep apnea (adult) (pediatric); E11.59 Type 2 diabetes mellitus with other circulatory complications; E03.9 Hypothyroidism, unspecified; I48.91 Unspecified atrial fibrillation; I48.3 Typical atrial flutter; R07.89 Other chest pain; Z79.01 Long term (current) use of anticoagulants; Z87.891 Personal history of nicotine dependence; Z72.89 Other problems related to lifestyle; Z98.890 Other specified postprocedural states; Z88.8 Allergy status to other drugs, medicaments and biological substances
CPT/HCPCS: 36415; 80048; 85025; 85610; 85730

== ENCOUNTER 2018-11-05 14:06 | Day surgery (SDC) | payer MEDICARE, BC ==
[~2018-11-05] VITALS: Ht 165.1 cm; Wt 104.0 kg
[2018-11-05] VITALS (16 sets, daily range): BP systolic 99–122; BP diastolic 45–71
[2018-11-05] MEDS ORDERED: MIDAZolam 5mg/ml 2ml vial IV ONE (14:35)
[2018-11-05] MEDS ORDERED: normal saline 1000ml 1,000 ML IV SCH (14:35)
[2018-11-05] MEDS ORDERED: fentaNYL/PF 50MCG/1 ML 2ML syringe IV ONE (14:35)
[2018-11-05] MEDS ORDERED: AMIO200T40 PO (15:10)
[2018-11-05] MEDS ORDERED: FURO-150 PO (15:16)
[2018-11-05] MEDS ORDERED: GABA-532 PO (15:19)
[2018-11-05] MEDS ORDERED: MAGN400C PO (15:21)
[2018-11-05] MEDS ORDERED: NITR0.4T48 SL (15:22)
[2018-11-05] MEDS ORDERED: LIDOcaine 1% (10mg/ml) 2ml vial ONE (16:41)
== END 2018-11-05 19:15 | disposition home or self-care (01) ==
LOC: SSTAY O 14:06
PROVIDERS: ATTEND Internal Medicine Interventional Cardiology
DX: I48.0 Paroxysmal atrial fibrillation (principal); I48.92 Unspecified atrial flutter; I45.81 Long QT syndrome; G47.33 Obstructive sleep apnea (adult) (pediatric); I10 Essential (primary) hypertension; E78.5 Hyperlipidemia, unspecified; E03.9 Hypothyroidism, unspecified; N19 Unspecified kidney failure; I49.8 Other specified cardiac arrhythmias; K21.9 Gastro-esophageal reflux disease without esophagitis; G89.29 Other chronic pain; E11.42 Type 2 diabetes mellitus with diabetic polyneuropathy; F32.9 Major depressive disorder, single episode, unspecified; F41.8 Other specified anxiety disorders; F10.21 Alcohol dependence, in remission; Z87.11 Personal history of peptic ulcer disease; Z86.79 Personal history of other diseases of the circulatory system; Z85.841 Personal history of malignant neoplasm of brain; Z87.891 Personal history of nicotine dependence; Z90.49 Acquired absence of other specified parts of digestive tract; Z87.39 Personal history of other diseases of the musculoskeletal system and connective tissue; Z98.41 Cataract extraction status, right eye; Z98.42 Cataract extraction status, left eye; Z86.69 Personal history of other diseases of the nervous system and sense organs; Z79.891 Long term (current) use of opiate analgesic; Z79.01 Long term (current) use of anticoagulants; Z79.899 Other long term (current) drug therapy; Z98.890 Other specified postprocedural states; Z88.8 Allergy status to other drugs, medicaments and biological substances; Z82.3 Family history of stroke; Z82.49 Family history of ischemic heart disease and other diseases of the circulatory system; Z81.8 Family history of other mental and behavioral disorders
CPT/HCPCS: 82948; 92960; 93005; J2250; J3010; J3490; J7030

== ENCOUNTER 2019-01-15 00:40 | Outpatient (CLI) | payer MEDICARE, BC ==
[~2019-01-15 00:40] MED LIST changes: +FURO-150 PO; -FURO20TA4 PO; +GABA-532 PO; +MAGN400C PO; -MULT-1085 PO; +NITR0.4T48 SL
== END 2019-01-15 23:59 | disposition home or self-care (01) ==
LOC: DIABETIC 00:40
PROVIDERS: ATTEND Family Medicine
DX: E11.65 Type 2 diabetes mellitus with hyperglycemia (principal); I10 Essential (primary) hypertension; Z87.891 Personal history of nicotine dependence; Z79.899 Other long term (current) drug therapy
CPT/HCPCS: G0108

== ENCOUNTER 2019-04-14 03:35 | Outpatient (CLI) | payer MEDICARE, BC | END 2019-04-14 23:59 | disposition home or self-care (01) | LOC: DIABETIC 03:35 | PROVIDERS: ATTEND Family Medicine | DX: E11.65 Type 2 diabetes mellitus with hyperglycemia (principal); I10 Essential (primary) hypertension; Z79.899 Other long term (current) drug therapy | CPT/HCPCS: G0108 ==

== ENCOUNTER 2019-07-16 03:26 | Outpatient (CLI) | payer MEDICARE, BC ==
[~2019-07-16 03:26] MED LIST changes: -AMIO200T40 PO; +AMIO200T61 PO; -OMEP20CA10 PO; +OMEP20CA11 PO
== END 2019-07-16 23:59 | disposition home or self-care (01) ==
LOC: DIABETIC 03:26
PROVIDERS: ATTEND Family Medicine
DX: E11.65 Type 2 diabetes mellitus with hyperglycemia (principal); I10 Essential (primary) hypertension; Z79.899 Other long term (current) drug therapy
CPT/HCPCS: G0108

== ENCOUNTER 2020-11-09 15:36 | Outpatient (CLI) | payer MEDICARE, BC ==
[~2020-11-09 15:36] MED LIST changes: -OMEP20CA11 PO; +OMEP20CA15 PO; +SIMV-42 PO; -SIMV20TA5 PO
[2020-11-09 16:00] LABS: TOTAL HEMOGLOBIN 13.4 G/dl (12.0-16.0)
== END 2020-11-09 23:59 | disposition home or self-care (01) ==
LOC: RT 15:36
PROVIDERS: ATTEND Specialist
DX: R06.02 Shortness of breath (principal); G47.30 Sleep apnea, unspecified; Z79.899 Other long term (current) drug therapy
CPT/HCPCS: 85018; 94010; 94727; 94729

== ENCOUNTER 2021-03-13 11:28 | Emergency (ER) | payer MEDICARE, BC ==
[~2021-03-13] VITALS: Ht 162.6 cm; Wt 111.1 kg
[~2021-03-13 11:28] MED LIST changes: -LISI-604 PO; +LISI-790 PO
[2021-03-13 11:57] LABS: BASOPHILS % (AUTO) 0.5 % (0-1); EOSINOPHILS # (AUTO) 0.2 X10'3 (0-0.9); EOSINOPHILS % (AUTO) 3.3 % (0-6); HEMATOCRIT 36.6 % (35.0-45.0); HEMOGLOBIN 11.9 g/dl (12.0-16.0); LYMPHOCYTES # (AUTO) 0.9 X10'3 (1.1-4.8); MEAN CORPUSCULAR HEMOGLOBIN 26.6 PG (27.0-31.0); MEAN CORPUSCULAR HGB CONC 32.5 g/dL (33.0-36.5); MEAN CORPUSCULAR VOLUME 81.7 FL (78-98); MEAN PLATELET VOLUME 10.8 FL (7.4-10.4); MONOCYTES # (AUTO) 0.5 X10'3 (0-0.9); MONOCYTES % (AUTO) 9.6 % (2-12); NEUTROPHILS # (AUTO) 3.4 X10'3 (1.8-7.7); NEUTROPHILS % (AUTO) 68.6 % (42-75); PLATELET COUNT 121 X10'3 (140-440); RED BLOOD COUNT 4.48 X10'6 (4.20-5.60); RED CELL DISTRIBUTION WIDTH 16.1 % (11.5-14.5)
[2021-03-13 12:18] LABS: ALANINE AMINOTRANSFERASE 14 U/L (12-78); ALBUMIN 3.8 G/DL (3.4-5.0); ALKALINE PHOSPHATASE 106 IU/L (46-116); ANION GAP 10 (8-16); ASPARTATE AMINO TRANSFERASE 15 U/L (10-37); BILIRUBIN,TOTAL 0.9 MG/DL (0.1-1.0); BLOOD UREA NITROGEN 34 MG/DL (7-18); BUN/CREATININE RATIO 17.8 (6.6-38.0); CHLORIDE 107 MMOL/L (99-107); CREATININE 1.91 MG/DL (0.40-0.90); GLUCOSE 101 MG/DL (70-104); SODIUM 142 MMOL/L (135-145); TOTAL CARBON DIOXIDE 25.2 MMOL/L (24-32); TOTAL PROTEIN 7.7 G/DL (6.4-8.2); eGFR 25 ML/MIN
[2021-03-13 12:21] LABS: POTASSIUM 6.4 MMOL/L (3.5-5.1)
[2021-03-13] MEDS ORDERED: sodium bicarbonate (8.4%) 1 mEq/ml syringe IV ONE (12:45)
[2021-03-13] MEDS ORDERED: furosemide 40mg/4ml inj IV ONE (12:45)
[2021-03-13] MEDS ORDERED: albuterol 2.5 MG/3 ML nebule NEB ONE (12:45)
[2021-03-13] MEDS ORDERED: dextrose 50%-water 50ml dispensing syringe IV ONE (12:45)
[2021-03-13] MEDS ORDERED: calcium chloride 100 MG/1 ML inj IV ONE (12:45)
[2021-03-13] MEDS ORDERED: insulin regular, human U-100 3ml vial - multi-dose IV ONE (12:45)
[2021-03-13] MEDS ORDERED: albuterol 2.5 MG/3 ML nebule CONTNEB ONE (13:05)
[2021-03-13 13:06] LABS: ANISOCYTOSIS 1+; HYPOCHROMASIA 1+; LARGE PLATELETS FEW; PLATELET ESTIMATE DECREASED
[2021-03-13 13:11] VITALS: BP 118/58
== END 2021-03-13 15:00 | disposition home or self-care (01) ==
LOC: ER 11:28
DX: E87.5 Hyperkalemia (principal); I48.91 Unspecified atrial fibrillation; I12.9 Hypertensive chronic kidney disease with stage 1 through stage 4 chronic kidney disease, or unspecified chronic kidney disease; E11.22 Type 2 diabetes mellitus with diabetic chronic kidney disease; N18.9 Chronic kidney disease, unspecified; I25.10 Atherosclerotic heart disease of native coronary artery without angina pectoris; Z86.2 Personal history of diseases of the blood and blood-forming organs and certain disorders involving the immune mechanism; Z87.440 Personal history of urinary (tract) infections; G89.29 Other chronic pain; Z90.49 Acquired absence of other specified parts of digestive tract; Z88.8 Allergy status to other drugs, medicaments and biological substances; Z79.899 Other long term (current) drug therapy; R06.02 Shortness of breath
CPT/HCPCS: 36415; 71045; 80053; 83880; 84132; 84484; 85008; 85025; 93005; 94640; 94644; 96374; 96375; 99285; J1940; 94760; A7015; J1815

== ENCOUNTER 2021-08-16 08:27 | Outpatient (CLI) | payer MEDICARE, BC | END 2021-08-16 23:59 | disposition home or self-care (01) | LOC: RAD 08:27 | PROVIDERS: ATTEND Family Medicine | DX: M54.5 Low back pain (principal); R26.89 Other abnormalities of gait and mobility; G62.9 Polyneuropathy, unspecified; M47.816 Spondylosis without myelopathy or radiculopathy, lumbar region; R29.898 Other symptoms and signs involving the musculoskeletal system; M48.00 Spinal stenosis, site unspecified; Z53.9 Procedure and treatment not carried out, unspecified reason ==

== ENCOUNTER 2021-10-02 10:37 | Inpatient (IN) | payer MEDICARE, BC ==
[~2021-10-02] VITALS: Ht 162.6 cm; Wt 113.0 kg
[~2021-10-02 10:37] MED LIST changes: -LISI-790 PO; +LISI5TAB22 PO
[2021-10-02 11:47] LABS: BASOPHILS % (AUTO) 0.7 % (0-1); EOSINOPHILS # (AUTO) 0.1 X10'3 (0-0.9); EOSINOPHILS % (AUTO) 1.9 % (0-6); HEMATOCRIT 27.5 % (35.0-45.0); HEMOGLOBIN 8.6 g/dl (12.0-16.0); LYMPHOCYTES % (AUTO) 18.2 % (21-51); MEAN CORPUSCULAR HEMOGLOBIN 22.5 PG (27.0-31.0); MEAN CORPUSCULAR HGB CONC 31.4 g/dL (33.0-36.5); MEAN CORPUSCULAR VOLUME 71.6 FL (78-98); MEAN PLATELET VOLUME 8.9 FL (7.4-10.4); MONOCYTES # (AUTO) 0.7 X10'3 (0-0.9); MONOCYTES % (AUTO) 11.6 % (2-12); NEUTROPHILS # (AUTO) 3.8 X10'3 (1.8-7.7); NEUTROPHILS % (AUTO) 67.6 % (42-75); PLATELET COUNT 130 X10'3 (140-440); RED BLOOD COUNT 3.83 X10'6 (4.20-5.60); RED CELL DISTRIBUTION WIDTH 19.7 % (11.5-14.5); WHITE BLOOD COUNT 5.7 X10'3 (4.5-11.0)
[2021-10-02 11:56] LABS: ALANINE AMINOTRANSFERASE 15 U/L (12-78); ALBUMIN 3.1 G/DL (3.4-5.0); ALBUMIN/GLOBULIN RATIO 0.9 (1.1-1.5); ALKALINE PHOSPHATASE 91 IU/L (46-116); ANION GAP 9 (8-16); ASPARTATE AMINO TRANSFERASE 17 U/L (10-37); BILIRUBIN,TOTAL 0.8 MG/DL (0.1-1.0); BLOOD UREA NITROGEN 26 MG/DL (7-18); BUN/CREATININE RATIO 18.1 (6.6-38.0); CALCIUM 7.2 MG/DL (8.5-10.1); CHLORIDE 111 MMOL/L (99-107); CREATININE 1.44 MG/DL (0.40-0.90); GLUCOSE 109 MG/DL (70-104); POTASSIUM 4.4 MMOL/L (3.5-5.1); SODIUM 142 MMOL/L (135-145); TOTAL CARBON DIOXIDE 21.6 MMOL/L (24-32); TOTAL PROTEIN 6.5 G/DL (6.4-8.2); eGFR 35 ML/MIN
[2021-10-02 12:12] LABS: ANISOCYTOSIS 2+; MICROCYTOSIS 1+; PLATELET ESTIMATE DECREASED
[2021-10-02 12:13] LABS: ELLIPTOCYTES FEW; HYPOCHROMASIA 1+; SCHISTOCYTES FEW; TEAR DROP CELLS FEW
[2021-10-02] MEDS ORDERED: pantoprazole 40 MG vial IV ONE (14:05)
[2021-10-02] MEDS ORDERED: CHOL4PAC PO (14:58)
[2021-10-02] MEDS ORDERED: CARV6.253 PO (14:59)
[2021-10-02] MEDS ORDERED: FURO40TA4 PO (15:01)
[2021-10-02] MEDS ORDERED: LISI10TA27 PO (15:02)
[2021-10-02] MEDS ORDERED: VIT1CAPS9 PO (15:05)
[2021-10-02] MEDS ORDERED: HYDR-3973 PO (15:10)
[2021-10-02] MEDS ORDERED: SPIR25TA5 PO (15:11)
[2021-10-02] MEDS ORDERED: PEG 3350/Na sulf,bicarb,Cl/KCl oral sol 4 liter bottle PO ONE (15:35)
[2021-10-02] MEDS ORDERED: mag hydrox/Alum hydrox/simeth 30ml oral suspension PO PRN (15:35)
[2021-10-02] MEDS ORDERED: acetaminophen 325mg tablet PO PRN ×2 (15:35)
[2021-10-02] MEDS ORDERED: acetaminophen 650mg rectal suppository RC PRN (15:35)
[2021-10-02] MEDS ORDERED: magnesium hydroxide 30ml (MOM) UD suspension PO PRN (15:35)
[2021-10-02] MEDS ORDERED: potassium Cl 40MEQ/1/2NS 520ml 520 ML IV PRN ×2 (15:35)
[2021-10-02] MEDS: pantoprazole 40MG/NS 100ML BAG 100 ML IV SCH ×4 (15:35→23:13)
[2021-10-02] MEDS ORDERED: morphine 2 MG/ML inj. syringe IV PRN ×2 (15:35)
[2021-10-02] MEDS ORDERED: magnesium 4gm in 100ml NS 100 ML IV PRN (15:35)
[2021-10-02] MEDS ORDERED: potassium Cl 20 mEq SR tablet PO PRN ×2 (15:35)
[2021-10-02] MEDS ORDERED: sodium ferric gluc complex inj 125 MG in normal saline 100ml IV soln 90 ML IV ONE (15:35)
[2021-10-02] MEDS ORDERED: diphenhydrAMINE 25mg capsule PO PRN (15:35)
[2021-10-02] MEDS ORDERED: magnesium Cl slow-release 64mg tablet PO PRN (15:35)
[2021-10-02] MEDS ORDERED: magnesium 2GM in 50ml NS 50 ML IV PRN (15:35)
[2021-10-02] MEDS ORDERED: HYDROcodone/acetaminophen 5mg/325mg tablet PO PRN (15:35)
[2021-10-02] MEDS ORDERED: ondansetron/PF 4mg/2ml inj IV PRN (15:35)
[2021-10-02] MEDS ORDERED: bisacodyl 10mg suppository rectal RC PRN (15:35)
[2021-10-02] MEDS ORDERED: sodium ferric gluc complex inj 125 MG in normal saline 100ml IV soln 100 ML IV ONE (16:05)
[2021-10-02 16:22] LABS: HEMOGLOBIN A1C 6.7 % (4.5-6.2)
[2021-10-02 16:34] LABS: HEMATOCRIT 25.6 % (35.0-45.0); HEMOGLOBIN 8.1 g/dl (12.0-16.0); MEAN CORPUSCULAR HEMOGLOBIN 22.4 PG (27.0-31.0); MEAN CORPUSCULAR HGB CONC 31.6 g/dL (33.0-36.5); MEAN CORPUSCULAR VOLUME 70.9 FL (78-98); MEAN PLATELET VOLUME 9.2 FL (7.4-10.4); PLATELET COUNT 123 X10'3 (140-440); RED BLOOD COUNT 3.61 X10'6 (4.20-5.60); RED CELL DISTRIBUTION WIDTH 19.2 % (11.5-14.5); WHITE BLOOD COUNT 5.7 X10'3 (4.5-11.0)
[2021-10-02] MEDS: normal saline 1000ml 1,000 ML IV SCH (18:02)
[2021-10-02 19:11] LABS: CLARITY,URINE CLEAR (Clear); COLOR,URINE YELLOW (Yellow); UA COLLECTION TYPE CLN CATCH MIDSTREAM
[2021-10-02 19:12] LABS: GLUCOSE, URINE NEGATIVE (Neg); KETONES,URINE NEGATIVE (Neg); LEUKOCYTE ESTERASE ,URINE NEGATIVE (Neg); NITRITES, URINE POSITIVE (Neg); OCCULT BLOOD,URINE NEGATIVE (Neg); PROTEIN,URINE TRACE mg/dl (Neg); UROBILINOGEN,URINE 0.2 E.U/dL (0.2-1.0)
[2021-10-02 19:14] LABS: MUCUS STRANDS FEW /LPF (Neg); SQUAMOUS EPITHELIAL CELL,UR MODERATE /LPF (FEW)
[2021-10-02 19:16] LABS: BACTERIA,URINE 3+ /HPF (Neg); RBC,URINE 0-2 /HPF (0-2); WBC CLUMPS,URINE FEW /HPF (NEGATIVE)
[2021-10-02] MEDS ORDERED: VIT E PO SCH (20:00)
[2021-10-02] MEDS ORDERED: VIT C PO SCH (20:00)
[2021-10-02] MEDS ORDERED: COPPER PO SCH (20:00)
[2021-10-02] MEDS ORDERED: VIT A PO SCH (20:00)
[2021-10-02] MEDS ORDERED: ZINC PO SCH (20:00)
[2021-10-02] MEDS: docusate sod 100mg capsule PO SCH (20:55)
[2021-10-02] MEDS: duloxetine 30mg CAPSULE.DR PO SCH (20:56)
[2021-10-02] MEDS: lisinopril 10 MG tablet PO SCH (20:58)
[2021-10-02] MEDS: atorvastatin 10mg tablet PO SCH (20:58)
[2021-10-02] MEDS: gabapentin 300mg capsule PO SCH (21:00)
[2021-10-02] MEDS: carvedilol 6.25mg tablet PO SCH (21:04)
[2021-10-02] MEDS: pregabalin 75mg capsule PO SCH (21:11)
[2021-10-02] MEDS: K and/or MAG REPLACEMENT MC SCH (22:12)
[2021-10-02] MEDS: chloestyramine/aspartame 4gm packet PO SCH (22:16)
[2021-10-02 23:19] LABS: HEMATOCRIT 29.1 % (35.0-45.0); HEMOGLOBIN 9.1 g/dl (12.0-16.0); MEAN CORPUSCULAR HEMOGLOBIN 22.5 PG (27.0-31.0); MEAN CORPUSCULAR HGB CONC 31.2 g/dL (33.0-36.5); MEAN CORPUSCULAR VOLUME 72.1 FL (78-98); MEAN PLATELET VOLUME 9.7 FL (7.4-10.4); PLATELET COUNT 160 X10'3 (140-440); RED BLOOD COUNT 4.03 X10'6 (4.20-5.60); RED CELL DISTRIBUTION WIDTH 19.8 % (11.5-14.5); WHITE BLOOD COUNT 6.4 X10'3 (4.5-11.0)
[2021-10-03] VITALS (7 sets, daily range): BP systolic 108–154; BP diastolic 58–77
[2021-10-03] MEDS: pantoprazole 40MG/NS 100ML BAG 100 ML IV SCH ×4 (01:00→21:00)
--- NOTE | 2021-10-03 01:19 | NUR ---
Patient up to bedside commode, is preping for colonoscopy in am. Some how the commode bucket spilled and EVS had to be called.
[2021-10-03] MEDS: normal saline 1000ml 1,000 ML IV SCH (04:50)
[2021-10-03] MEDS: K and/or MAG REPLACEMENT MC SCH ×2 (06:19→20:00)
[2021-10-03 07:48] LABS: BASOPHILS % (AUTO) 0.6 % (0-1); EOSINOPHILS # (AUTO) 0.1 X10'3 (0-0.9); EOSINOPHILS % (AUTO) 1.8 % (0-6); HEMOGLOBIN 8.5 g/dl (12.0-16.0); LYMPHOCYTES # (AUTO) 0.9 X10'3 (1.1-4.8); LYMPHOCYTES % (AUTO) 14.3 % (21-51); MEAN CORPUSCULAR HEMOGLOBIN 22.5 PG (27.0-31.0); MEAN CORPUSCULAR HGB CONC 31.4 g/dL (33.0-36.5); MEAN CORPUSCULAR VOLUME 71.8 FL (78-98); MEAN PLATELET VOLUME 8.6 FL (7.4-10.4); MONOCYTES # (AUTO) 0.6 X10'3 (0-0.9); MONOCYTES % (AUTO) 9.2 % (2-12); NEUTROPHILS # (AUTO) 4.6 X10'3 (1.8-7.7); NEUTROPHILS % (AUTO) 74.1 % (42-75); PLATELET COUNT 137 X10'3 (140-440); RED BLOOD COUNT 3.76 X10'6 (4.20-5.60); RED CELL DISTRIBUTION WIDTH 19.9 % (11.5-14.5); WHITE BLOOD COUNT 6.2 X10'3 (4.5-11.0)
[2021-10-03] MEDS: lisinopril 10 MG tablet PO SCH ×2 (08:00→21:29)
[2021-10-03] MEDS: chloestyramine/aspartame 4gm packet PO SCH ×2 (08:00→21:29)
[2021-10-03] MEDS: docusate sod 100mg capsule PO SCH ×2 (08:00→21:29)
[2021-10-03] MEDS: carvedilol 6.25mg tablet PO SCH ×2 (08:00→21:30)
[2021-10-03] MEDS: magnesium oxide 400mg tablet PO SCH (08:00)
[2021-10-03] MEDS: duloxetine 30mg CAPSULE.DR PO SCH ×2 (08:00→21:30)
[2021-10-03] MEDS: furosemide 40mg tablet PO SCH (08:00)
[2021-10-03] MEDS: spironolactone 25 MG tablet PO SCH (08:00)
[2021-10-03] MEDS: levoTHYROXINE 25mcg tablet PO SCH (08:00)
[2021-10-03] MEDS: pregabalin 75mg capsule PO SCH ×2 (08:00→21:30)
[2021-10-03] MEDS: gabapentin 300mg capsule PO SCH ×2 (08:00→21:29)
[2021-10-03] MEDS: sodium ferric gluc complex inj 125 MG in normal saline 100ml IV soln 100 ML IV SCH (08:11)
[2021-10-03 08:41] LABS: ALANINE AMINOTRANSFERASE 14 U/L (12-78); ALBUMIN 3.3 G/DL (3.4-5.0); ALBUMIN/GLOBULIN RATIO 0.9 (1.1-1.5); ALKALINE PHOSPHATASE 86 IU/L (46-116); ANION GAP 12 (8-16); ASPARTATE AMINO TRANSFERASE 19 U/L (10-37); BILIRUBIN,TOTAL 1.1 MG/DL (0.1-1.0); BLOOD UREA NITROGEN 20 MG/DL (7-18); BUN/CREATININE RATIO 14.9 (6.6-38.0); CALCIUM 6.7 MG/DL (8.5-10.1); CHLORIDE 110 MMOL/L (99-107); CHOLESTEROL 111 MG/DL (0-200); CREATININE 1.34 MG/DL (0.40-0.90); GLUCOSE 120 MG/DL (70-104); MAGNESIUM 1.8 MG/DL (1.5-2.4); PHOSPHORUS 2.5 MG/DL (2.3-4.5); POTASSIUM 4.1 MMOL/L (3.5-5.1); SODIUM 143 MMOL/L (135-145); TOTAL CARBON DIOXIDE 20.7 MMOL/L (24-32); TOTAL PROTEIN 6.8 G/DL (6.4-8.2); eGFR 38 ML/MIN
[2021-10-03 08:42] LABS: CHOL/HDL RATIO 3.6 (0.00-4.99); HDL CHOLESTEROL 31 MG/DL (35-60); LDL CHOLESTEROL 54 MG/DL (50-100); TRIGLYCERIDES 133 MG/DL (20-135)
[2021-10-03] MEDS ORDERED: diltiazem-D5W 125mg/125ml 125 ML IV SCH (09:00)
[2021-10-03] MEDS ORDERED: diltiazem 5mg/ml 5ml inj. IV ONE (09:00)
[2021-10-03] MEDS ORDERED: diltiazem-NS 100mg/100ml 100 ML IV SCH (09:10)
[2021-10-03 09:38] LABS: HEMATOCRIT 28.9 % (35.0-45.0); MEAN CORPUSCULAR HEMOGLOBIN 22.3 PG (27.0-31.0); MEAN CORPUSCULAR VOLUME 71.8 FL (78-98); MEAN PLATELET VOLUME 9.1 FL (7.4-10.4); PLATELET COUNT 148 X10'3 (140-440); RED BLOOD COUNT 4.03 X10'6 (4.20-5.60); RED CELL DISTRIBUTION WIDTH 19.6 % (11.5-14.5); WHITE BLOOD COUNT 6.9 X10'3 (4.5-11.0)
[2021-10-03 09:47] LABS: ANISOCYTOSIS 2+; ELLIPTOCYTES 1+; LARGE PLATELETS FEW; MICROCYTOSIS 1+; PLATELET ESTIMATE DECREASED; TEAR DROP CELLS FEW
[2021-10-03 09:48] LABS: HYPOCHROMASIA 1+
[2021-10-03] MEDS: CefTRIAXone/D5W-Rocephin 1gm 50 ML IV SCH (10:27)
--- NOTE | 2021-10-03 10:45 | NUR ---
TO GI LAB
[2021-10-03] MEDS ORDERED: MIDAZolam 1 MG/ML 5ML VIAL ONE (11:13)
[2021-10-03] MEDS ORDERED: fentaNYL/PF 50MCG/1 ML 2ML syringe ONE (11:13)
[2021-10-03] MEDS ORDERED: LIDOcaine Viscous 15ml cup ONE (11:14)
[2021-10-03] MEDS ORDERED: iron dextran complex inj. 25 MG in normal saline 50ml IV soln 49.5 ML IV ONE (13:10)
[2021-10-03] MEDS ORDERED: iron dextran complex inj. 25 MG in normal saline 50ml IV soln 50 ML IV ONE (13:20)
[2021-10-03] MEDS ORDERED: iron dextran complex inj. 25 MG in normal saline 100ml IV soln 100 ML IV ONE (13:20)
[2021-10-03] MEDS ORDERED: iron dextran complex inj. 25 MG in normal saline 50ml IV soln 100 ML IV ONE (13:55)
[2021-10-03] MEDS ORDERED: IRON DEXTRAN COMPLEX IV SCH (15:00)
[2021-10-03] MEDS ORDERED: iron dextran complex inj. 100 MG in normal saline 100ml IV soln 100 ML IV SCH (15:00)
[2021-10-03] MEDS ORDERED: iron dextran complex inj. 75 MG in normal saline 100ml IV soln 100 ML IV ONE (15:00)
[2021-10-03] MEDS ORDERED: NORMAL SALINE IV SCH (15:00)
[2021-10-03] MEDS: HYDROcodone/acetaminophen 10/325mg tab PO PRN (16:55)
[2021-10-03 17:41] LABS: HEMATOCRIT 26.6 % (35.0-45.0); HEMOGLOBIN 8.3 g/dl (12.0-16.0); MEAN CORPUSCULAR HEMOGLOBIN 22.4 PG (27.0-31.0); MEAN CORPUSCULAR HGB CONC 31.4 g/dL (33.0-36.5); MEAN CORPUSCULAR VOLUME 71.4 FL (78-98); MEAN PLATELET VOLUME 9.8 FL (7.4-10.4); PLATELET COUNT 139 X10'3 (140-440); RED BLOOD COUNT 3.73 X10'6 (4.20-5.60); RED CELL DISTRIBUTION WIDTH 19.9 % (11.5-14.5)
--- NOTE | 2021-10-03 18:15 | NUR ---
Patient in room PCU 3014. I have received report from ASIA Mobley and had the opportunity to ask questions and assume patient care.
[2021-10-03] MEDS ORDERED: pneumococcal 23-VAL P-sac vacc 25 mcg/0.5ml vial IMVAC ONE (18:45)
[2021-10-03] MEDS ORDERED: FLU VACC QS2021-22(6MOS UP)/PF 60 MCG/0.5 ML SYRINGE IM ONE (18:45)
[2021-10-03] MEDS: lactobacillus rhamnosus 10,000 MMU CELLS/CAPSULE PO SCH (21:28)
[2021-10-03] MEDS: atorvastatin 10mg tablet PO SCH (21:30)
[2021-10-04] MEDS: pantoprazole 40MG/NS 100ML BAG 100 ML IV SCH ×5 (01:00→21:00)
[2021-10-04 03:00] VITALS: BP 104/43
[2021-10-04 06:00] VITALS: BP 111/56
--- NOTE | 2021-10-04 06:07 | NUR ---
Problems reprioritized. Patient report given, questions answered & plan of care reviewed with ASIA Mobley.
[2021-10-04 07:30] LABS: HEMATOCRIT 25.9 % (35.0-45.0); MEAN CORPUSCULAR HEMOGLOBIN 22.9 PG (27.0-31.0); MEAN CORPUSCULAR HGB CONC 31.9 g/dL (33.0-36.5); MEAN CORPUSCULAR VOLUME 71.8 FL (78-98); MEAN PLATELET VOLUME 9.7 FL (7.4-10.4); PLATELET COUNT 134 X10'3 (140-440)
[2021-10-04 07:32] LABS: HEMOGLOBIN 8.2 g/dl (12.0-16.0); RED CELL DISTRIBUTION WIDTH 19.7 % (11.5-14.5)
[2021-10-04 07:55] LABS: ALANINE AMINOTRANSFERASE 10 U/L (12-78); ALBUMIN 3.2 G/DL (3.4-5.0); ALKALINE PHOSPHATASE 89 IU/L (46-116); ANION GAP 13 (8-16); ASPARTATE AMINO TRANSFERASE 17 U/L (10-37); BILIRUBIN,TOTAL 0.8 MG/DL (0.1-1.0); BLOOD UREA NITROGEN 17 MG/DL (7-18); CALCIUM 6.9 MG/DL (8.5-10.1); CHLORIDE 112 MMOL/L (99-107); CREATININE 1.31 MG/DL (0.40-0.90); GLUCOSE 102 MG/DL (70-104); MAGNESIUM 1.8 MG/DL (1.5-2.4); SODIUM 145 MMOL/L (135-145); TOTAL CARBON DIOXIDE 20.3 MMOL/L (24-32); TOTAL PROTEIN 6.4 G/DL (6.4-8.2); eGFR 39 ML/MIN
[2021-10-04] MEDS ORDERED: iron dextran complex inj. 100 MG in normal saline 100ml IV soln 100 ML IV SCH (08:00)
[2021-10-04] MEDS: HYDROcodone/acetaminophen 10/325mg tab PO PRN ×2 (08:01→16:37)
[2021-10-04] MEDS: carvedilol 6.25mg tablet PO SCH ×2 (08:04→20:57)
[2021-10-04] MEDS: lisinopril 10 MG tablet PO SCH ×2 (08:04→20:45)
[2021-10-04] MEDS: furosemide 40mg tablet PO SCH (08:04)
[2021-10-04] MEDS: gabapentin 300mg capsule PO SCH ×2 (08:04→20:45)
[2021-10-04] MEDS: lactobacillus rhamnosus 10,000 MMU CELLS/CAPSULE PO SCH ×2 (08:04→20:45)
[2021-10-04] MEDS: duloxetine 30mg CAPSULE.DR PO SCH ×2 (08:04→20:46)
[2021-10-04] MEDS: levoTHYROXINE 25mcg tablet PO SCH (08:05)
[2021-10-04] MEDS: spironolactone 25 MG tablet PO SCH (08:05)
[2021-10-04] MEDS: pregabalin 75mg capsule PO SCH ×2 (08:05→20:45)
[2021-10-04] MEDS: magnesium oxide 400mg tablet PO SCH (08:05)
[2021-10-04] MEDS: chloestyramine/aspartame 4gm packet PO SCH ×2 (08:05→20:46)
[2021-10-04] MEDS: docusate sod 100mg capsule PO SCH ×2 (08:05→20:46)
[2021-10-04] MEDS: CefTRIAXone/D5W-Rocephin 1gm 50 ML IV SCH (08:06)
[2021-10-04 09:39] LABS: TOTAL CELLS COUNTED 100
[2021-10-04 09:40] LABS: ANISOCYTOSIS 2+; MICROCYTOSIS 1+; PLATELET ESTIMATE DECREASED
[2021-10-04] MEDS ORDERED: diltiazem-NS 100mg/100ml 100 ML IV SCH (09:55)
[2021-10-04] MEDS: sodium ferric gluc complex inj 125 MG in normal saline 100ml IV soln 100 ML IV SCH (11:58)
--- NOTE | 2021-10-04 14:29 | NUR ---
Giles was paged regarding the pt name Giovanna Henderson, on PCU, is on A-fib ,she is a [facility] patient . primary physician MADELAINE Want the patient to be seen by Dr. gutierrez or Edilma .,before the patient get discharged thank you
[2021-10-04 15:00] VITALS: BP 110/60
--- NOTE | 2021-10-04 15:11 | NUR ---
PRESSURE ULCER EDUCATION: DEFINITION: A pressure ulcer is an area of skin that breaks down when you stay in one position too long. The constant pressure against the skin reduces the blood flow to that area and the affected tissue dies. CAUSES: "Being bedridden or in a wheelchair "Fragile skin "Having a chronic condition, such as diabetes or vascular disease "Inability to move certain parts of your body without assistance "Older age "Incontinence of urine or stool SYMPTOMS: "A reddened area that DOES NOT turn white when pressed on - this can be the beginning of a pressure ulcer "A blister, deep sore or a crater - these can be advanced pressure ulcers FIRST AID: "Relieve the pressure on this area "Keep the area clean and dry "Call your primary doctor if you see any of the above symptoms "DO NOT massage the area "DO NOT use a donut shaped or ring shaped pillow- these actually interfere with the blood flow and cause complications PREVENTION: "Check for pressure ulcers everyday "Change position at least every two hours to relieve pressure "Use items that help relieve pressure- pillows, sheepskin, foam padding, and powders. "Keep skin clean and dry "Eat healthy well balanced meals "Exercise daily IF YOU SEE ANY OF THESE SYMPTOMS WHILE IN THE HOSPITAL - TELL YOUR NURSE IMMEDIATELY. IF YOU SEE ANY OF THESE SYMPTOMS WHILE AT HOME OR HAVE ANY QUESTIONS OR CONCERNS ABOUT PRESSURE ULCERS - CALL YOUR PRIMARY DOCTOR IMMEDIATELY. Addendum: 10/04/21 at 1511 by Lin Dyer RN Amended: Links added.
[2021-10-04 18:00] VITALS: BP 103/51
--- NOTE | 2021-10-04 18:49 | NUR ---
Patient in room PCU 3014. I have received report from ASIA Mobley and had the opportunity to ask questions and assume patient care.
--- NOTE | 2021-10-04 18:55 | NUR ---
Patient in room PCU 3014. I have received report from ASIA Velez and had the opportunity to ask questions and assume patient care.
[2021-10-04] MEDS: K and/or MAG REPLACEMENT MC SCH (20:00)
[2021-10-04] MEDS: atorvastatin 10mg tablet PO SCH (20:46)
[2021-10-04 22:00] VITALS: BP 85/44
[2021-10-04 23:10] VITALS: BP 97/52
[2021-10-05] MEDS: pantoprazole 40MG/NS 100ML BAG 100 ML IV SCH ×2 (01:17→05:47)
[2021-10-05 02:00] VITALS: BP 102/63
--- NOTE | 2021-10-05 06:35 | NUR ---
Problems reprioritized. Patient report given, questions answered & plan of care reviewed with ASIA Penaloza I agree with ASIA Woodardpublishing editor, assesments, and charting .
--- NOTE | 2021-10-05 06:37 | NUR ---
Problems reprioritized. Patient report given, questions answered & plan of care reviewed with ASIA Penaloza.
[2021-10-05 06:43] LABS: BASOPHILS # (AUTO) 0.1 X10'3 (0-0.2); BASOPHILS % (AUTO) 0.8 % (0-1); EOSINOPHILS # (AUTO) 0.2 X10'3 (0-0.9); EOSINOPHILS % (AUTO) 2.9 % (0-6); HEMATOCRIT 25.4 % (35.0-45.0); HEMOGLOBIN 7.9 g/dl (12.0-16.0); LYMPHOCYTES # (AUTO) 1.2 X10'3 (1.1-4.8); LYMPHOCYTES % (AUTO) 20.1 % (21-51); MEAN CORPUSCULAR HEMOGLOBIN 22.8 PG (27.0-31.0); MEAN CORPUSCULAR VOLUME 73.7 FL (78-98); MONOCYTES # (AUTO) 0.7 X10'3 (0-0.9); MONOCYTES % (AUTO) 11.5 % (2-12); NEUTROPHILS % (AUTO) 64.7 % (42-75); PLATELET COUNT 130 X10'3 (140-440); RED BLOOD COUNT 3.45 X10'6 (4.20-5.60); RED CELL DISTRIBUTION WIDTH 20.2 % (11.5-14.5); WHITE BLOOD COUNT 6.2 X10'3 (4.5-11.0)
--- NOTE | 2021-10-05 06:50 | NUR ---
Received report Luis Eduardo/Yamilet BETANCOURT.
[2021-10-05 07:11] VITALS: BP 109/48
[2021-10-05 07:23] LABS: ALANINE AMINOTRANSFERASE 8 U/L (12-78); ALBUMIN/GLOBULIN RATIO 0.9 (1.1-1.5); ALKALINE PHOSPHATASE 84 IU/L (46-116); ANION GAP 15 (8-16); ASPARTATE AMINO TRANSFERASE 18 U/L (10-37); BILIRUBIN,TOTAL 0.6 MG/DL (0.1-1.0); BLOOD UREA NITROGEN 22 MG/DL (7-18); BUN/CREATININE RATIO 12.9 (6.6-38.0); CALCIUM 6.9 MG/DL (8.5-10.1); CHLORIDE 111 MMOL/L (99-107); CREATININE 1.71 MG/DL (0.40-0.90); GLUCOSE 94 MG/DL (70-104); PHOSPHORUS 3.5 MG/DL (2.3-4.5); POTASSIUM 4.2 MMOL/L (3.5-5.1); SODIUM 143 MMOL/L (135-145); TOTAL CARBON DIOXIDE 17.1 MMOL/L (24-32); TOTAL PROTEIN 6.4 G/DL (6.4-8.2); eGFR 29 ML/MIN
[2021-10-05] MEDS: carvedilol 6.25mg tablet PO SCH ×2 (07:39→19:36)
[2021-10-05] MEDS: docusate sod 100mg capsule PO SCH ×2 (07:39→19:34)
[2021-10-05] MEDS: lactobacillus rhamnosus 10,000 MMU CELLS/CAPSULE PO SCH ×2 (07:39→19:36)
[2021-10-05] MEDS: levoTHYROXINE 25mcg tablet PO SCH (07:41)
[2021-10-05] MEDS: duloxetine 30mg CAPSULE.DR PO SCH ×2 (07:41→19:36)
[2021-10-05] MEDS: pregabalin 75mg capsule PO SCH ×2 (07:41→19:37)
[2021-10-05] MEDS: gabapentin 300mg capsule PO SCH ×2 (07:41→19:37)
[2021-10-05] MEDS: magnesium oxide 400mg tablet PO SCH (07:42)
[2021-10-05] MEDS: CefTRIAXone/D5W-Rocephin 1gm 50 ML IV SCH (07:54)
[2021-10-05] MEDS: spironolactone 25 MG tablet PO SCH (08:00)
[2021-10-05] MEDS: lisinopril 10 MG tablet PO SCH ×2 (08:00→19:40)
[2021-10-05] MEDS: furosemide 40mg tablet PO SCH (08:00)
[2021-10-05] MEDS: K and/or MAG REPLACEMENT MC SCH ×2 (08:00→19:46)
[2021-10-05] MEDS: chloestyramine/aspartame 4gm packet PO SCH ×2 (09:24→21:24)
[2021-10-05] MEDS: sodium ferric gluc complex inj 125 MG in normal saline 100ml IV soln 100 ML IV SCH (09:24)
[2021-10-05 13:25] VITALS: BP 94/42
--- NOTE | 2021-10-05 15:16 | NUR ---
PAGER ID: [phone] MESSAGE: Kat Henderson [id number]- FYI pt accepted to [facility] . Kim stated she is being picked up today. I noticed bicarb order. Do you want me to proceed or DC? Thank you Ca CLIFFORD
[2021-10-05] MEDS: sodium bicarbonate (8.4%) inj. 100 MEQ in dextrose 5%-water 1,000 ML IV SCH (15:43)
[2021-10-05] MEDS: HYDROcodone/acetaminophen 10/325mg tab PO PRN (15:52)
[2021-10-05 16:55] VITALS: BP 105/40
[2021-10-05 18:00] VITALS: BP 114/62
--- NOTE | 2021-10-05 18:51 | NUR ---
Problems reprioritized. Patient report given, questions answered & plan of care reviewed with Ursula Vergara RN .
--- NOTE | 2021-10-05 18:52 | NUR ---
Patient in room PCU 3014. I have received report from DAVIAN BETANCOURT and had the opportunity to ask questions and assume patient care.
[2021-10-05] MEDS: pantoprazole 40mg Tablet.DR PO SCH (19:38)
[2021-10-05] MEDS: atorvastatin 10mg tablet PO SCH (19:40)
[2021-10-05 22:00] VITALS: BP 114/58
[2021-10-06 02:00] VITALS: BP 124/71
[2021-10-06] MEDS: sodium bicarbonate (8.4%) inj. 100 MEQ in dextrose 5%-water 1,000 ML IV SCH (05:07)
--- NOTE | 2021-10-06 06:10 | NUR ---
Patient in room PCU 3014. I have received report from Ursula Vergara RN and had the opportunity to ask questions and assume patient care.
--- NOTE | 2021-10-06 06:26 | NUR ---
Problems reprioritized. Patient report given, questions answered & plan of care reviewed with KARO BETANCOURT.
[2021-10-06 07:01] LABS: BASOPHILS % (AUTO) 0.5 % (0-1); EOSINOPHILS # (AUTO) 0.1 X10'3 (0-0.9); EOSINOPHILS % (AUTO) 2.3 % (0-6); HEMATOCRIT 24.6 % (35.0-45.0); HEMOGLOBIN 7.7 g/dl (12.0-16.0); LYMPHOCYTES # (AUTO) 0.9 X10'3 (1.1-4.8); LYMPHOCYTES % (AUTO) 18.2 % (21-51); MEAN CORPUSCULAR HEMOGLOBIN 22.8 PG (27.0-31.0); MEAN CORPUSCULAR HGB CONC 31.3 g/dL (33.0-36.5); MEAN CORPUSCULAR VOLUME 72.7 FL (78-98); MEAN PLATELET VOLUME 9.7 FL (7.4-10.4); MONOCYTES # (AUTO) 0.6 X10'3 (0-0.9); MONOCYTES % (AUTO) 11.4 % (2-12); NEUTROPHILS # (AUTO) 3.5 X10'3 (1.8-7.7); NEUTROPHILS % (AUTO) 67.6 % (42-75); PLATELET COUNT 104 X10'3 (140-440); RED BLOOD COUNT 3.39 X10'6 (4.20-5.60); RED CELL DISTRIBUTION WIDTH 19.5 % (11.5-14.5); WHITE BLOOD COUNT 5.1 X10'3 (4.5-11.0)
[2021-10-06 07:19] LABS: ALANINE AMINOTRANSFERASE 13 U/L (12-78); ALBUMIN 2.9 G/DL (3.4-5.0); ALBUMIN/GLOBULIN RATIO 0.9 (1.1-1.5); ALKALINE PHOSPHATASE 80 IU/L (46-116); ANION GAP 10 (8-16); ASPARTATE AMINO TRANSFERASE 14 U/L (10-37); BILIRUBIN,TOTAL 0.6 MG/DL (0.1-1.0); BLOOD UREA NITROGEN 21 MG/DL (7-18); BUN/CREATININE RATIO 12.4 (6.6-38.0); CALCIUM 6.9 MG/DL (8.5-10.1); CHLORIDE 108 MMOL/L (99-107); GLUCOSE 111 MG/DL (70-104); MAGNESIUM 1.9 MG/DL (1.5-2.4); PHOSPHORUS 3.3 MG/DL (2.3-4.5); POTASSIUM 4.2 MMOL/L (3.5-5.1); SODIUM 141 MMOL/L (135-145); TOTAL CARBON DIOXIDE 23.1 MMOL/L (24-32); TOTAL PROTEIN 6.2 G/DL (6.4-8.2); eGFR 29 ML/MIN
[2021-10-06 07:47] LABS: ANISOCYTOSIS 2+; ELLIPTOCYTES FEW; HYPOCHROMASIA 1+; MICROCYTOSIS 1+; PLATELET ESTIMATE DECREASED; POLYCHROMASIA 1+; TEAR DROP CELLS 1+
[2021-10-06] MEDS: K and/or MAG REPLACEMENT MC SCH (08:00)
[2021-10-06] MEDS: CefTRIAXone/D5W-Rocephin 1gm 50 ML IV SCH (08:06)
[2021-10-06] MEDS: duloxetine 30mg CAPSULE.DR PO SCH (08:07)
[2021-10-06] MEDS: gabapentin 300mg capsule PO SCH (08:07)
[2021-10-06] MEDS: pregabalin 75mg capsule PO SCH (08:07)
[2021-10-06] MEDS: lactobacillus rhamnosus 10,000 MMU CELLS/CAPSULE PO SCH (08:08)
[2021-10-06] MEDS: docusate sod 100mg capsule PO SCH (08:08)
[2021-10-06] MEDS: pantoprazole 40mg Tablet.DR PO SCH (08:08)
[2021-10-06] MEDS: levoTHYROXINE 25mcg tablet PO SCH (08:08)
[2021-10-06] MEDS: magnesium oxide 400mg tablet PO SCH (08:09)
[2021-10-06] MEDS: carvedilol 6.25mg tablet PO SCH (08:17)
[2021-10-06] MEDS: HYDROcodone/acetaminophen 10/325mg tab PO PRN (08:41)
[2021-10-06] MEDS ORDERED: digoxin 250mcg/ml 2ml ampule IV ONE ×2 (09:55→16:00)
[2021-10-06] MEDS: sodium ferric gluc complex inj 125 MG in normal saline 100ml IV soln 100 ML IV SCH (10:57)
[2021-10-06 11:00] VITALS: BP 105/54
[2021-10-06] MEDS ORDERED: carvedilol 6.25mg tablet PO ONE (12:30)
[2021-10-06 13:33] VITALS: BP 85/46
[2021-10-06 14:00] VITALS: BP 103/55
--- NOTE | 2021-10-06 14:00 | NUR ---
pt discharged to [facility] from [facility] at 1400, on a minivan accompanied by minivan personnel. report was given to the nurse at [facility]. pt was alert and oriented x 4 with stable vital signs. left hand PIV was discontinued with catheter tip intact. discharge instruction was given to the patient .
[2021-10-06] MEDS ORDERED: carVEDilol 12.5mg tablet PO SCH (20:00)
[2021-10-06] MEDS ORDERED: lisinopril 2.5mg tablet PO SCH (20:00)
== END 2021-10-06 14:07 | DRG 377 ==
LOC: ER 10:38 → ED HOLD 15:38 → PCU 3S 10-03 16:15
PROVIDERS: ADMIT Family Medicine; ATTEND Family Medicine
PROC: 0DBP8ZZ Excision of Rectum, Via Natural or Artificial Opening Endoscopic (ICD-10-PCS; principal; 2021-10-03)
PROC: 0W3P8ZZ Control Bleeding in Gastrointestinal Tract, Via Natural or Artificial Opening Endoscopic (ICD-10-PCS; 2021-10-03)
PROC: 0DB68ZX Excision of Stomach, Via Natural or Artificial Opening Endoscopic, Diagnostic (ICD-10-PCS; 2021-10-03)
PROC: 0DB98ZX Excision of Duodenum, Via Natural or Artificial Opening Endoscopic, Diagnostic (ICD-10-PCS; 2021-10-03)
DX: K29.71 Gastritis, unspecified, with bleeding (principal); N17.0 Acute kidney failure with tubular necrosis; N39.0 Urinary tract infection, site not specified; I13.0 Hypertensive heart and chronic kidney disease with heart failure and stage 1 through stage 4 chronic kidney disease, or unspecified chronic kidney disease; I50.32 Chronic diastolic (congestive) heart failure; Z68.41 Body mass index [BMI] 40.0-44.9, adult; D50.9 Iron deficiency anemia, unspecified; B96.20 Unspecified Escherichia coli [E. coli] as the cause of diseases classified elsewhere; N18.9 Chronic kidney disease, unspecified; K21.9 Gastro-esophageal reflux disease without esophagitis; D75.89 Other specified diseases of blood and blood-forming organs; E03.9 Hypothyroidism, unspecified; E11.22 Type 2 diabetes mellitus with diabetic chronic kidney disease; E11.40 Type 2 diabetes mellitus with diabetic neuropathy, unspecified; E66.01 Morbid (severe) obesity due to excess calories; E78.5 Hyperlipidemia, unspecified; F32.A Depression, unspecified; G47.33 Obstructive sleep apnea (adult) (pediatric); I25.10 Atherosclerotic heart disease of native coronary artery without angina pectoris; I27.20 Pulmonary hypertension, unspecified; I48.0 Paroxysmal atrial fibrillation; I49.5 Sick sinus syndrome; J44.9 Chronic obstructive pulmonary disease, unspecified; K57.30 Diverticulosis of large intestine without perforation or abscess without bleeding; K62.1 Rectal polyp; L40.50 Arthropathic psoriasis, unspecified; M06.9 Rheumatoid arthritis, unspecified; E21.3 Hyperparathyroidism, unspecified; F41.9 Anxiety disorder, unspecified; G47.30 Sleep apnea, unspecified; G89.29 Other chronic pain; I87.2 Venous insufficiency (chronic) (peripheral); L40.9 Psoriasis, unspecified; M54.9 Dorsalgia, unspecified; Z79.82 Long term (current) use of aspirin; Z79.890 Hormone replacement therapy; Z79.899 Other long term (current) drug therapy; Z82.0 Family history of epilepsy and other diseases of the nervous system; Z82.3 Family history of stroke; Z71.3 Dietary counseling and surveillance; Z79.01 Long term (current) use of anticoagulants; Z82.49 Family history of ischemic heart disease and other diseases of the circulatory system; Z86.74 Personal history of sudden cardiac arrest; Z87.891 Personal history of nicotine dependence; Z90.49 Acquired absence of other specified parts of digestive tract; Z95.0 Presence of cardiac pacemaker; Z88.8 Allergy status to other drugs, medicaments and biological substances; Z71.6 Tobacco abuse counseling
CPT/HCPCS: 36415; 43239; 44391; 45385; 71045; 80053; 80061; 81001; 82948; 83036; 83735; 84100; 84443; 85007; 85008; 85025; 85027; 85610; 86885; 86900; 86901; 87077; 87088; 87186; 87635; 88305; 90732; 93005; 93306; 97110; 97116; 97161; 97530; 99152; 99153; 99285; A4620; C1773; C9113; G0378; J0696; J1160; J2250; J2916; J3010; J3490; J7030

== ENCOUNTER 2021-11-25 21:53 | Inpatient (IN) | payer MEDICARE, BC ==
[~2021-11-25] VITALS: Ht 165.1 cm; Wt 115.0 kg
[~2021-11-25 21:53] MED LIST changes: -AMIO200T61 PO; +CARV6.253 PO; +CHOL4PAC PO; -FOLI1TAB16 PO; -FURO-150 PO; +FURO40TA4 PO; +HYDR-3973 PO; +LISI10TA27 PO; -LISI5TAB22 PO; -PROBIOTIC PO; -QUELT PO; +SPIR25TA5 PO; +VIT1CAPS9 PO; -[UNRECOGNIZED DRUG - CODE] EACHEYE
[2021-11-25 23:44] LABS: BASOPHILS % (AUTO) 0.6 % (0-1); EOSINOPHILS # (AUTO) 0.1 X10'3 (0-0.9); EOSINOPHILS % (AUTO) 2.1 % (0-6); HEMOGLOBIN 12.1 g/dl (12.0-16.0); LYMPHOCYTES # (AUTO) 1.1 X10'3 (1.1-4.8); LYMPHOCYTES % (AUTO) 19.6 % (21-51); MEAN CORPUSCULAR HEMOGLOBIN 24.8 PG (27.0-31.0); MEAN CORPUSCULAR HGB CONC 31.8 g/dL (33.0-36.5); MEAN PLATELET VOLUME 9.2 FL (7.4-10.4); MONOCYTES # (AUTO) 0.7 X10'3 (0-0.9); MONOCYTES % (AUTO) 13.2 % (2-12); NEUTROPHILS # (AUTO) 3.5 X10'3 (1.8-7.7); NEUTROPHILS % (AUTO) 64.5 % (42-75); PLATELET COUNT 126 X10'3 (140-440); RED BLOOD COUNT 4.87 X10'6 (4.20-5.60); RED CELL DISTRIBUTION WIDTH 23.9 % (11.5-14.5); WHITE BLOOD COUNT 5.4 X10'3 (4.5-11.0)
[2021-11-25 23:59] LABS: ALANINE AMINOTRANSFERASE 16 U/L (12-78); ALBUMIN/GLOBULIN RATIO 0.9 (1.1-1.5); ALKALINE PHOSPHATASE 98 IU/L (46-116); ANION GAP 12 (8-16); ASPARTATE AMINO TRANSFERASE 18 U/L (10-37); BLOOD UREA NITROGEN 28 MG/DL (7-18); BUN/CREATININE RATIO 17.8 (6.6-38.0); CALCIUM 7.8 MG/DL (8.5-10.1); CHLORIDE 105 MMOL/L (99-107); CREATININE 1.57 MG/DL (0.40-0.90); GLUCOSE 122 MG/DL (70-104); POTASSIUM 3.7 MMOL/L (3.5-5.1); SODIUM 141 MMOL/L (135-145); TOTAL PROTEIN 6.2 G/DL (6.4-8.2); eGFR 32 ML/MIN
[2021-11-26 00:07] LABS: LIPASE 165 U/L (73-393)
[2021-11-26 00:24] LABS: ANISOCYTOSIS 3+; ELLIPTOCYTES 1+; PLATELET ESTIMATE DECREASED
[2021-11-26 00:25] LABS: LARGE PLATELETS FEW
[2021-11-26 00:30] LABS: CLARITY,URINE SLIGHTLY CLOUDY (Clear); COLOR,URINE YELLOW (Yellow); GLUCOSE, URINE NEGATIVE (Neg); KETONES,URINE NEGATIVE (Neg); LEUKOCYTE ESTERASE ,URINE TRACE (Neg); NITRITES, URINE POSITIVE (Neg); OCCULT BLOOD,URINE NEGATIVE (Neg); PROTEIN,URINE NEGATIVE (Neg); UROBILINOGEN,URINE 0.2 E.U/dL (0.2-1.0)
[2021-11-26 00:46] LABS: UA COLLECTION TYPE STRAIGHT CATH
[2021-11-26 00:49] LABS: BACTERIA,URINE 2+ /HPF (Neg); MUCUS STRANDS NONE SEEN /LPF (Neg); RBC,URINE NONE SEEN /HPF (0-2); SQUAMOUS EPITHELIAL CELL,UR NONE SEEN /LPF (FEW); WBC,URINE 0-4 /HPF (0-4)
[2021-11-26 00:50] LABS: HYALINE CASTS 0-3 /LPF (NEGATIVE); YEAST FEW /HPF (NEGATIVE)
[2021-11-26] MEDS ORDERED: furosemide 40mg/4ml inj IV ONE (01:20)
[2021-11-26] MEDS ORDERED: furosemide 10 MG/1 ML 10ml inj IV ONE (01:20)
[2021-11-26] MEDS ORDERED: ondansetron 4mg rapidly disintigrating tab PO PRN (02:15)
[2021-11-26] MEDS ORDERED: bisacodyl 10mg suppository rectal RC PRN (02:15)
[2021-11-26] MEDS ORDERED: magnesium hydroxide 30ml (MOM) UD suspension PO PRN (02:15)
[2021-11-26] MEDS ORDERED: mag hydrox/Alum hydrox/simeth 30ml oral suspension PO PRN (02:15)
[2021-11-26] MEDS ORDERED: diphenhydrAMINE 25mg capsule PO PRN (02:15)
[2021-11-26] MEDS ORDERED: morphine 2 MG/ML inj. syringe IV PRN ×2 (02:15)
[2021-11-26] MEDS ORDERED: acetaminophen 325mg tablet PO PRN ×2 (02:15)
[2021-11-26] MEDS ORDERED: acetaminophen 650mg rectal suppository RC PRN (02:15)
[2021-11-26] MEDS ORDERED: ondansetron/PF 4mg/2ml inj IV PRN (02:15)
[2021-11-26] MEDS ORDERED: diphenhydrAMINE 50 mg/ml inj IV PRN (02:15)
[2021-11-26] MEDS ORDERED: dextrose ORAL solution 15 GM/59 ML bottle PO PRN ×2 (02:20)
[2021-11-26] MEDS ORDERED: insulin Lispro (HumaLOG) vial - multi-dose SQ SCH (02:20)
[2021-11-26] MEDS ORDERED: MESSAGE TO PHARMACY PO ONE (02:20)
[2021-11-26] MEDS ORDERED: dextrose 50%-water 50ml dispensing syringe IV PRN ×2 (02:20)
[2021-11-26] MEDS ORDERED: glucagon, human recombinant 1mg kit SUBCUT PRN (02:20)
[2021-11-26 02:33] LABS: MAGNESIUM 1.7 MG/DL (1.5-2.4); PHOSPHORUS 3.9 MG/DL (2.3-4.5)
[2021-11-26] MEDS ORDERED: diltiazem 5mg/ml 5ml inj. IV ONE ×2 (03:30→04:05)
[2021-11-26] MEDS ORDERED: diltiazem-NS 100mg/100ml 100 ML IV SCH (06:25)
[2021-11-26] MEDS: furosemide 20 MG/2 ML vial IV SCH ×2 (07:38→20:00)
[2021-11-26] MEDS: CefTRIAXone/D5W-Rocephin 1gm 50 ML IV SCH (07:38)
[2021-11-26] MEDS: spironolactone 25 MG tablet PO SCH (07:38)
[2021-11-26] MEDS: levoTHYROXINE 25mcg tablet PO SCH (07:38)
[2021-11-26] MEDS: gabapentin 300mg capsule PO SCH ×2 (07:39→22:18)
[2021-11-26] MEDS: docusate sod 100mg capsule PO SCH ×2 (07:39→22:17)
[2021-11-26] MEDS: duloxetine 30mg CAPSULE.DR PO SCH ×2 (07:39→22:18)
[2021-11-26] MEDS: nitroGLYCERIN 0.2mg/hour patch TD SCH (07:39)
[2021-11-26] MEDS: apixaban 5mg tablet PO SCH ×2 (07:39→22:19)
[2021-11-26] MEDS ORDERED: atorvastatin 10mg tablet PO SCH (08:00)
[2021-11-26] MEDS ORDERED: carvedilol 6.25mg tablet PO SCH (08:00)
[2021-11-26 08:21] LABS: APTT 46 SECONDS (22-32)
--- NOTE | 2021-11-26 08:28 | NUR ---
PT REQUESTING HER MORNING LYRICA 225MG PO DOSAGE THAT SHE RECEIVES BID. CALLED RUSU AND RECEIVED VERBAL ORDER TO PLACE THE NEW MEDICATION INTO PT HOME MED LIST. ORDER PALCED FOR LYRICA 225MG PO BID IS REFLECTED ON HER EXTERNAL MED REQ
[2021-11-26] MEDS: pregabalin 75mg capsule PO SCH ×2 (09:03→22:17)
--- NOTE | 2021-11-26 10:30 | NUR ---
Small area in umbilicus draining a moderate amount of serous fluid.
--- NOTE | 2021-11-26 11:08 | NUR ---
Cleaned abd area of serous fluid. Placed ostomy over draining area on umbilicus.
--- NOTE | 2021-11-26 12:42 | NUR ---
DR LEI AT BEDSIDE TO ASSESS PATIENT. MADE AWARE PATIENT TAKES CARVIDEILOL 12.5 MG BIP PER EXTERNAL MED REC, PAT RECEIVED 6.25MG THIS AM. MD STATES TO CONTINUE CARVIDELOL 6.25MG AND WILL ORDER CARDIZEM 3MG Q6 HRS PO AND STOP CARDIZEM DRIP (SEE EMAR).
--- NOTE | 2021-11-26 12:42 | NUR ---
Echo at bedside.
[2021-11-26] MEDS: diltiazem 30mg tablet PO SCH ×2 (14:47→20:00)
[2021-11-26] MEDS: HYDROcodone/acetaminophen 5mg/325mg tablet PO PRN (18:24)
--- NOTE | 2021-11-26 19:01 | NUR ---
Report given to ASIA Awan in [place].
[2021-11-26 19:10] VITALS: BP 119/63
--- NOTE | 2021-11-26 19:10 | NUR ---
Received pt from er via caryl, oriented to room and routine. Received report via phone from ASIA Plasencia Addendum: 11/27/21 at 0218 by Юлия Adkins RN Amended: Links added.
[2021-11-26] MEDS: carvedilol 6.25mg tablet PO SCH (20:00)
[2021-11-26] MEDS ORDERED: temazepam 15mg capsule PO PRN (21:00)
[2021-11-26 22:09] VITALS: BP 94/58
[2021-11-26] MEDS: lactobacillus rhamnosus 10,000 MMU CELLS/CAPSULE PO SCH (22:18)
[2021-11-26] MEDS: atorvastatin 10mg tablet PO SCH (22:19)
[2021-11-27 01:35] VITALS: BP 110/65
[2021-11-27] MEDS: diltiazem 30mg tablet PO SCH ×2 (01:37→08:59)
[2021-11-27] MEDS: HYDROcodone/acetaminophen 5mg/325mg tablet PO PRN ×2 (01:38→21:35)
[2021-11-27 06:00] VITALS: BP 114/57
--- NOTE | 2021-11-27 06:39 | NUR ---
Problems reprioritized. Patient report given, questions answered & plan of care reviewed with ASIA LEE. Addendum: 11/27/21 at 0639 by Юлия Adkins RN Amended: Links added.
[2021-11-27 06:48] LABS: BASOPHILS % (AUTO) 0.6 % (0-1); EOSINOPHILS # (AUTO) 0.1 X10'3 (0-0.9); LYMPHOCYTES # (AUTO) 1.2 X10'3 (1.1-4.8); MONOCYTES # (AUTO) 0.8 X10'3 (0-0.9); MONOCYTES % (AUTO) 14.2 % (2-12); NEUTROPHILS # (AUTO) 3.6 X10'3 (1.8-7.7)
[2021-11-27 06:51] LABS: EOSINOPHILS % (AUTO) 2.3 % (0-6); HEMATOCRIT 36.2 % (35.0-45.0); HEMOGLOBIN 11.7 g/dl (12.0-16.0); LYMPHOCYTES % (AUTO) 20.9 % (21-51); MEAN CORPUSCULAR HEMOGLOBIN 25.2 PG (27.0-31.0); MEAN CORPUSCULAR HGB CONC 32.4 g/dL (33.0-36.5); MEAN CORPUSCULAR VOLUME 77.7 FL (78-98); MEAN PLATELET VOLUME 10.3 FL (7.4-10.4); PLATELET COUNT 147 X10'3 (140-440); RED BLOOD COUNT 4.66 X10'6 (4.20-5.60); RED CELL DISTRIBUTION WIDTH 23.7 % (11.5-14.5); WHITE BLOOD COUNT 5.7 X10'3 (4.5-11.0)
[2021-11-27] MEDS: levoTHYROXINE 25mcg tablet PO SCH (07:00)
[2021-11-27 07:12] LABS: ALANINE AMINOTRANSFERASE 11 U/L (12-78); ALBUMIN 2.8 G/DL (3.4-5.0); ALBUMIN/GLOBULIN RATIO 0.8 (1.1-1.5); ALKALINE PHOSPHATASE 87 IU/L (46-116); ANION GAP 14 (8-16); ASPARTATE AMINO TRANSFERASE 26 U/L (10-37); BLOOD UREA NITROGEN 22 MG/DL (7-18); BUN/CREATININE RATIO 15.4 (6.6-38.0); CALCIUM 7.6 MG/DL (8.5-10.1); CHLORIDE 106 MMOL/L (99-107); CHOL/HDL RATIO 2.9 (0.00-4.99); CHOLESTEROL 81 MG/DL (0-200); CREATININE 1.43 MG/DL (0.40-0.90); GLUCOSE 87 MG/DL (70-104); HDL CHOLESTEROL 28 MG/DL (35-60); LDL CHOLESTEROL 40 MG/DL (50-100); SODIUM 143 MMOL/L (135-145); TOTAL CARBON DIOXIDE 23.4 MMOL/L (24-32); TOTAL PROTEIN 6.2 G/DL (6.4-8.2); TRIGLYCERIDES 102 MG/DL (20-135); eGFR 35 ML/MIN
--- NOTE | 2021-11-27 07:25 | NUR ---
Diabetes consult: Noted A1C 6.7 well controlled and appropriate for age. DM ed not indicated at this time. Addendum: 11/27/21 at [address] Amended: Links added.
[2021-11-27 07:33] LABS: POTASSIUM 3.3 MMOL/L (3.5-5.1)
[2021-11-27] MEDS: duloxetine 30mg CAPSULE.DR PO SCH ×2 (08:00→21:06)
[2021-11-27] MEDS: lactobacillus rhamnosus 10,000 MMU CELLS/CAPSULE PO SCH ×2 (08:00→21:06)
[2021-11-27] MEDS: apixaban 5mg tablet PO SCH ×2 (08:00→21:05)
[2021-11-27] MEDS: carvedilol 6.25mg tablet PO SCH ×2 (08:00→21:06)
[2021-11-27] MEDS: nitroGLYCERIN 0.2mg/hour patch TD SCH (08:00)
[2021-11-27] MEDS: gabapentin 300mg capsule PO SCH ×2 (08:00→21:05)
[2021-11-27] MEDS: docusate sod 100mg capsule PO SCH ×2 (08:00→21:06)
[2021-11-27] MEDS: pregabalin 75mg capsule PO SCH ×2 (08:00→21:05)
[2021-11-27] MEDS: CefTRIAXone/D5W-Rocephin 1gm 50 ML IV SCH (08:58)
[2021-11-27] MEDS: spironolactone 25 MG tablet PO SCH (08:59)
[2021-11-27] MEDS: furosemide 20 MG/2 ML vial IV SCH ×2 (08:59→21:08)
[2021-11-27 11:00] VITALS: BP 140/98
--- NOTE | 2021-11-27 11:02 | NUR ---
PAGER ID: [phone] MESSAGE: [id number]. Patients heartrate is in 140s, went up to 160. BP is 140/98. Felicity BETANCOURT [id number]
[2021-11-27] MEDS ORDERED: diltiazem 5mg/ml 5ml inj. IV ONE (11:05)
[2021-11-27] MEDS ORDERED: diltiazem CD 180mg cap (once-daily) PO ONE (11:05)
--- NOTE | 2021-11-27 13:48 | NUR ---
PRESSURE ULCER EDUCATION: DEFINITION: A pressure ulcer is an area of skin that breaks down when you stay in one position too long. The constant pressure against the skin reduces the blood flow to that area and the affected tissue dies. CAUSES: "Being bedridden or in a wheelchair "Fragile skin "Having a chronic condition, such as diabetes or vascular disease "Inability to move certain parts of your body without assistance "Older age "Incontinence of urine or stool SYMPTOMS: "A reddened area that DOES NOT turn white when pressed on - this can be the beginning of a pressure ulcer "A blister, deep sore or a crater - these can be advanced pressure ulcers FIRST AID: "Relieve the pressure on this area "Keep the area clean and dry "Call your primary doctor if you see any of the above symptoms "DO NOT massage the area "DO NOT use a donut shaped or ring shaped pillow- these actually interfere with the blood flow and cause complications PREVENTION: "Check for pressure ulcers everyday "Change position at least every two hours to relieve pressure "Use items that help relieve pressure- pillows, sheepskin, foam padding, and powders. "Keep skin clean and dry "Eat healthy well balanced meals "Exercise daily IF YOU SEE ANY OF THESE SYMPTOMS WHILE IN THE HOSPITAL - TELL YOUR NURSE IMMEDIATELY. IF YOU SEE ANY OF THESE SYMPTOMS WHILE AT HOME OR HAVE ANY QUESTIONS OR CONCERNS ABOUT PRESSURE ULCERS - CALL YOUR PRIMARY DOCTOR IMMEDIATELY. Addendum: 11/27/21 at 1354 by Lin Dyer RN Amended: Links added.
[2021-11-27 15:00] VITALS: BP 115/69
--- NOTE | 2021-11-27 15:35 | NUR ---
PAGER ID: [phone] MESSAGE: [id number]. Do you want K/Mg replacement protocol? Potassium 3.3. Felicity BETANCOURT [id number]
[2021-11-27] MEDS ORDERED: potassium Cl 20 mEq SR tablet PO PRN (16:00)
[2021-11-27] MEDS ORDERED: magnesium 2GM in 50ml NS 50 ML IV PRN (16:00)
[2021-11-27] MEDS ORDERED: potassium CL 10mEq/100ml bag 100 ML IV PRN (16:00)
[2021-11-27] MEDS ORDERED: magnesium 4gm in 100ml NS 100 ML IV PRN (16:00)
[2021-11-27 16:35] LABS: MAGNESIUM 1.3 MG/DL (1.5-2.4); POTASSIUM 3.3 MMOL/L (3.5-5.1)
[2021-11-27] MEDS: potassium Cl 20 mEq SR tablet PO PRN ×2 (16:56→21:37)
[2021-11-27] MEDS: magnesium Cl slow-release 64mg tablet PO PRN ×2 (16:56→21:37)
[2021-11-27 18:00] VITALS: BP 112/76
--- NOTE | 2021-11-27 18:29 | NUR ---
Problems reprioritized. Patient report given, questions answered & plan of care reviewed with Jodi BETANCOURT.
[2021-11-27] MEDS: K and/or MAG REPLACEMENT MC SCH (20:00)
[2021-11-27] MEDS: nystatin 15 GM powder TP SCH (21:05)
[2021-11-27] MEDS: atorvastatin 10mg tablet PO SCH (21:35)
[2021-11-27 22:00] VITALS: BP 111/87
[2021-11-28] VITALS (7 sets, daily range): BP systolic 82–109; BP diastolic 44–77
[2021-11-28] MEDS: potassium Cl 20 mEq SR tablet PO PRN (02:29)
[2021-11-28 06:01] LABS: BASOPHILS % (AUTO) 0.6 % (0-1); EOSINOPHILS # (AUTO) 0.1 X10'3 (0-0.9); EOSINOPHILS % (AUTO) 1.7 % (0-6); HEMATOCRIT 39.4 % (35.0-45.0); HEMOGLOBIN 12.7 g/dl (12.0-16.0); LYMPHOCYTES # (AUTO) 1.1 X10'3 (1.1-4.8); LYMPHOCYTES % (AUTO) 20.1 % (21-51); MEAN CORPUSCULAR HEMOGLOBIN 24.9 PG (27.0-31.0); MEAN CORPUSCULAR HGB CONC 32.3 g/dL (33.0-36.5); MEAN CORPUSCULAR VOLUME 76.9 FL (78-98); MEAN PLATELET VOLUME 9.4 FL (7.4-10.4); MONOCYTES # (AUTO) 0.8 X10'3 (0-0.9); NEUTROPHILS # (AUTO) 3.3 X10'3 (1.8-7.7); NEUTROPHILS % (AUTO) 62.6 % (42-75); PLATELET COUNT 130 X10'3 (140-440); RED BLOOD COUNT 5.12 X10'6 (4.20-5.60); RED CELL DISTRIBUTION WIDTH 23.8 % (11.5-14.5); WHITE BLOOD COUNT 5.3 X10'3 (4.5-11.0)
[2021-11-28 06:17] LABS: ALANINE AMINOTRANSFERASE 12 U/L (12-78); ALBUMIN 3.2 G/DL (3.4-5.0); ALBUMIN/GLOBULIN RATIO 0.8 (1.1-1.5); ALKALINE PHOSPHATASE 101 IU/L (46-116); ANION GAP 11 (8-16); ASPARTATE AMINO TRANSFERASE 20 U/L (10-37); BILIRUBIN,TOTAL 1.3 MG/DL (0.1-1.0); BLOOD UREA NITROGEN 22 MG/DL (7-18); BUN/CREATININE RATIO 13.5 (6.6-38.0); CHLORIDE 103 MMOL/L (99-107); CREATININE 1.63 MG/DL (0.40-0.90); GLUCOSE 96 MG/DL (70-104); MAGNESIUM 1.3 MG/DL (1.5-2.4); POTASSIUM 3.6 MMOL/L (3.5-5.1); SODIUM 141 MMOL/L (135-145); TOTAL CARBON DIOXIDE 26.6 MMOL/L (24-32); eGFR 30 ML/MIN
--- NOTE | 2021-11-28 06:42 | NUR ---
Patient in room MED 313. I have received report from ASIA Zapata and had the opportunity to ask questions and assume patient care.
[2021-11-28] MEDS: nystatin 15 GM powder TP SCH ×3 (08:00→21:00)
[2021-11-28] MEDS: K and/or MAG REPLACEMENT MC SCH ×2 (08:00→20:00)
[2021-11-28] MEDS: levoTHYROXINE 25mcg tablet PO SCH (08:54)
[2021-11-28] MEDS: carvedilol 6.25mg tablet PO SCH ×2 (08:55→20:00)
[2021-11-28] MEDS: HYDROcodone/acetaminophen 5mg/325mg tablet PO PRN ×2 (08:55→19:47)
[2021-11-28] MEDS: spironolactone 25 MG tablet PO SCH (08:55)
[2021-11-28] MEDS: apixaban 5mg tablet PO SCH ×2 (08:56→19:47)
[2021-11-28] MEDS: lactobacillus rhamnosus 10,000 MMU CELLS/CAPSULE PO SCH ×2 (08:56→20:00)
[2021-11-28] MEDS: duloxetine 30mg CAPSULE.DR PO SCH ×2 (08:57→19:46)
[2021-11-28] MEDS: docusate sod 100mg capsule PO SCH ×2 (08:57→20:00)
[2021-11-28] MEDS: pregabalin 75mg capsule PO SCH ×2 (08:58→19:55)
[2021-11-28] MEDS: magnesium Cl slow-release 64mg tablet PO PRN ×2 (08:58→19:46)
[2021-11-28] MEDS: gabapentin 300mg capsule PO SCH ×2 (08:58→19:46)
[2021-11-28] MEDS: nitroGLYCERIN 0.2mg/hour patch TD SCH (09:00)
[2021-11-28] MEDS: furosemide 20 MG/2 ML vial IV SCH ×2 (09:05→19:46)
[2021-11-28] MEDS: CefTRIAXone/D5W-Rocephin 1gm 50 ML IV SCH (09:10)
--- NOTE | 2021-11-28 18:36 | NUR ---
Problems reprioritized. Patient report given, questions answered & plan of care reviewed with ASIA RYAN.
[2021-11-28] MEDS: atorvastatin 10mg tablet PO SCH (19:47)
--- NOTE | 2021-11-28 20:15 | NUR ---
NOTE ABOUT LYRICA PULLED FROM OMNICEL. 3 TABS WERE ORDERED AND ONE WAS PULLED OUT OF OMNICELL ON ACCE. THERE WERE INITIALLY ONLY 3 TABS LEFT IN OMNICELL SO WHEN I WENT TO TAKE MORE IT SAID THE MED WAS OUT OF STOCK. 3 TABS WERE REMOVED FROM OMNICEL ON SURGICAL UNIT. THE ONE TAB THAT WAS TAKEN FROM ACCE WAS RETURNED TO THE ACCE OMNICEL IN THE NARCOTICS RETURN BIN AND WAS WITNESSED BY MACIEL Jones RN.
[2021-11-29 02:00] VITALS: BP 105/78
[2021-11-29 06:00] VITALS: BP 114/72
--- NOTE | 2021-11-29 07:09 | NUR ---
Patient in room MED 313. I have received report from ASIA RYAN, and had the opportunity to ask questions and assume patient care.
[2021-11-29] MEDS: CefTRIAXone/D5W-Rocephin 1gm 50 ML IV SCH (07:36)
[2021-11-29] MEDS: gabapentin 300mg capsule PO SCH ×2 (07:43→19:39)
[2021-11-29] MEDS: lactobacillus rhamnosus 10,000 MMU CELLS/CAPSULE PO SCH ×2 (07:43→19:39)
[2021-11-29] MEDS: docusate sod 100mg capsule PO SCH ×2 (07:43→19:39)
[2021-11-29] MEDS: levoTHYROXINE 25mcg tablet PO SCH (07:43)
[2021-11-29] MEDS: duloxetine 30mg CAPSULE.DR PO SCH ×2 (07:43→19:39)
[2021-11-29] MEDS: apixaban 5mg tablet PO SCH ×2 (07:44→19:39)
[2021-11-29] MEDS: spironolactone 25 MG tablet PO SCH (07:44)
[2021-11-29] MEDS: carvedilol 6.25mg tablet PO SCH ×2 (07:44→19:39)
[2021-11-29] MEDS: nitroGLYCERIN 0.2mg/hour patch TD SCH (07:47)
[2021-11-29] MEDS: K and/or MAG REPLACEMENT MC SCH ×2 (08:00→19:55)
--- NOTE | 2021-11-29 08:31 | NUR ---
PAGE SENT PAGER ID: [phone] MESSAGE: 313, KRISTINE RENE, HR [id number]. MORNING MEDS GIVEN 40 MINUTES AGO. THANK YOU, ANGLE [phone]
[2021-11-29] MEDS: pregabalin 75mg capsule PO SCH ×2 (09:18→19:40)
[2021-11-29] MEDS: furosemide 20 MG/2 ML vial IV SCH ×2 (09:20→19:40)
[2021-11-29 09:38] LABS: BASOPHILS % (AUTO) 0.7 % (0-1); EOSINOPHILS # (AUTO) 0.1 X10'3 (0-0.9); HEMOGLOBIN 12.4 g/dl (12.0-16.0); LYMPHOCYTES # (AUTO) 1.1 X10'3 (1.1-4.8); MEAN CORPUSCULAR HGB CONC 31.6 g/dL (33.0-36.5); WHITE BLOOD COUNT 5.6 X10'3 (4.5-11.0)
[2021-11-29 09:40] LABS: EOSINOPHILS % (AUTO) 2.1 % (0-6); HEMATOCRIT 39.2 % (35.0-45.0); MEAN CORPUSCULAR HEMOGLOBIN 24.5 PG (27.0-31.0); MEAN CORPUSCULAR VOLUME 77.3 FL (78-98); MEAN PLATELET VOLUME 10.3 FL (7.4-10.4); MONOCYTES # (AUTO) 0.9 X10'3 (0-0.9); MONOCYTES % (AUTO) 15.6 % (2-12); NEUTROPHILS # (AUTO) 3.4 X10'3 (1.8-7.7); NEUTROPHILS % (AUTO) 61.6 % (42-75); PLATELET COUNT 154 X10'3 (140-440); RED BLOOD COUNT 5.08 X10'6 (4.20-5.60); RED CELL DISTRIBUTION WIDTH 23.3 % (11.5-14.5)
[2021-11-29 09:59] LABS: ALBUMIN 3.2 G/DL (3.4-5.0); ALBUMIN/GLOBULIN RATIO 0.8 (1.1-1.5); ALKALINE PHOSPHATASE 106 IU/L (46-116); ANION GAP 12 (8-16); ASPARTATE AMINO TRANSFERASE 22 U/L (10-37); BLOOD UREA NITROGEN 22 MG/DL (7-18); BUN/CREATININE RATIO 15.4 (6.6-38.0); CHLORIDE 101 MMOL/L (99-107); CREATININE 1.43 MG/DL (0.40-0.90); GLUCOSE 92 MG/DL (70-104); MAGNESIUM 1.4 MG/DL (1.5-2.4); POTASSIUM 3.6 MMOL/L (3.5-5.1); SODIUM 143 MMOL/L (135-145); TOTAL CARBON DIOXIDE 30.5 MMOL/L (24-32); TOTAL PROTEIN 7.3 G/DL (6.4-8.2); eGFR 35 ML/MIN
--- NOTE | 2021-11-29 10:08 | NUR ---
PAGE SENT PAGER ID: [phone] MESSAGE: Edie, KRISTINE RENE, HR [id number]. THANK YOU, ANGLE Kovacs [phone]
[2021-11-29 10:30] LABS: ALANINE AMINOTRANSFERASE 15 U/L (12-78)
[2021-11-29 11:00] VITALS: BP 105/75
[2021-11-29 11:22] LABS: ANISOCYTOSIS 3+; ELLIPTOCYTES FEW; LARGE PLATELETS FEW; MICROCYTOSIS 1+; PLATELET ESTIMATE NORMAL; TEAR DROP CELLS FEW
[2021-11-29] MEDS: diltiazem 30mg tablet PO SCH ×2 (14:06→19:38)
[2021-11-29] MEDS: nystatin 15 GM powder TP SCH ×2 (14:06→19:53)
[2021-11-29 15:00] VITALS: BP 114/73
[2021-11-29] MEDS: HYDROcodone/acetaminophen 5mg/325mg tablet PO PRN (17:55)
--- NOTE | 2021-11-29 18:40 | NUR ---
Patient in room MED 313. I have received report from ANGLE BETANCOURT and had the opportunity to ask questions and assume patient care.
[2021-11-29 19:00] VITALS: BP 108/76
--- NOTE | 2021-11-29 19:13 | NUR ---
Problems reprioritized. Patient report given, questions answered & plan of care reviewed with ASIA STRANGE.
[2021-11-29] MEDS: atorvastatin 10mg tablet PO SCH (19:53)
[2021-11-29] MEDS: magnesium Cl slow-release 64mg tablet PO PRN (19:59)
[2021-11-29 23:00] VITALS: BP 93/54
[2021-11-30] MEDS: diltiazem 30mg tablet PO SCH ×3 (02:00→13:49)
[2021-11-30 03:00] VITALS: BP 93/54
[2021-11-30 06:00] VITALS: BP 105/59
--- NOTE | 2021-11-30 06:05 | NUR ---
Problems reprioritized. Patient report given, questions answered & plan of care reviewed with KARO BETANCOURT.
--- NOTE | 2021-11-30 06:10 | NUR ---
Patient in room MED 313. I have received report from Ursula Vergara RN and had the opportunity to ask questions and assume patient care.
[2021-11-30 06:55] LABS: BASOPHILS % (AUTO) 0.9 % (0-1); EOSINOPHILS # (AUTO) 0.1 X10'3 (0-0.9); MONOCYTES # (AUTO) 0.8 X10'3 (0-0.9); NEUTROPHILS % (AUTO) 62.6 % (42-75)
[2021-11-30 06:59] LABS: HEMATOCRIT 38.1 % (35.0-45.0); HEMOGLOBIN 12.5 g/dl (12.0-16.0); LYMPHOCYTES # (AUTO) 1.1 X10'3 (1.1-4.8); LYMPHOCYTES % (AUTO) 20.3 % (21-51); MEAN CORPUSCULAR HGB CONC 32.7 g/dL (33.0-36.5); MEAN CORPUSCULAR VOLUME 76.4 FL (78-98); MEAN PLATELET VOLUME 10.3 FL (7.4-10.4); MONOCYTES % (AUTO) 14.2 % (2-12); NEUTROPHILS # (AUTO) 3.4 X10'3 (1.8-7.7); PLATELET COUNT 157 X10'3 (140-440); RED BLOOD COUNT 4.99 X10'6 (4.20-5.60); WHITE BLOOD COUNT 5.4 X10'3 (4.5-11.0)
[2021-11-30 07:16] LABS: ALANINE AMINOTRANSFERASE 16 U/L (12-78); ALBUMIN 3.2 G/DL (3.4-5.0); ALBUMIN/GLOBULIN RATIO 0.9 (1.1-1.5); ALKALINE PHOSPHATASE 109 IU/L (46-116); ANION GAP 12 (8-16); ASPARTATE AMINO TRANSFERASE 23 U/L (10-37); BLOOD UREA NITROGEN 27 MG/DL (7-18); BUN/CREATININE RATIO 18.1 (6.6-38.0); CALCIUM 8.2 MG/DL (8.5-10.1); CHLORIDE 99 MMOL/L (99-107); CREATININE 1.49 MG/DL (0.40-0.90); GLUCOSE 99 MG/DL (70-104); MAGNESIUM 1.5 MG/DL (1.5-2.4); POTASSIUM 3.3 MMOL/L (3.5-5.1); SODIUM 141 MMOL/L (135-145); TOTAL CARBON DIOXIDE 29.9 MMOL/L (24-32); TOTAL PROTEIN 6.8 G/DL (6.4-8.2); eGFR 34 ML/MIN
[2021-11-30] MEDS: docusate sod 100mg capsule PO SCH (07:24)
[2021-11-30] MEDS: apixaban 5mg tablet PO SCH (07:24)
[2021-11-30] MEDS: spironolactone 25 MG tablet PO SCH (07:24)
[2021-11-30] MEDS: levoTHYROXINE 25mcg tablet PO SCH (07:24)
[2021-11-30] MEDS: duloxetine 30mg CAPSULE.DR PO SCH (07:25)
[2021-11-30] MEDS: lactobacillus rhamnosus 10,000 MMU CELLS/CAPSULE PO SCH (07:25)
[2021-11-30] MEDS: HYDROcodone/acetaminophen 5mg/325mg tablet PO PRN (07:25)
[2021-11-30] MEDS: gabapentin 300mg capsule PO SCH (07:25)
[2021-11-30] MEDS: CefTRIAXone/D5W-Rocephin 1gm 50 ML IV SCH (07:26)
[2021-11-30] MEDS: nitroGLYCERIN 0.2mg/hour patch TD SCH (07:26)
[2021-11-30] MEDS: pregabalin 75mg capsule PO SCH (07:28)
[2021-11-30] MEDS: furosemide 20 MG/2 ML vial IV SCH (08:00)
[2021-11-30] MEDS: K and/or MAG REPLACEMENT MC SCH (08:00)
[2021-11-30] MEDS: nystatin 15 GM powder TP SCH ×2 (08:00→13:54)
[2021-11-30] MEDS ORDERED: digoxin 250mcg/ml 2ml ampule IV ONE (08:30)
[2021-11-30] MEDS: potassium Cl 20 mEq SR tablet PO PRN (08:50)
[2021-11-30 11:00] VITALS: BP 113/58
[2021-11-30 11:49] LABS: PLATELET ESTIMATE NORMAL
[2021-11-30 11:50] LABS: ANISOCYTOSIS 3+; ELLIPTOCYTES FEW; HYPOCHROMASIA 1+; LARGE PLATELETS FEW; MICROCYTOSIS 1+; TEAR DROP CELLS FEW
--- NOTE | 2021-11-30 12:07 | NUR ---
PAGER ID: [phone] MESSAGE: Re: Giovanna Henderson. Room: 313. Pt ambulated 150 ft. HR got up to 112. At rest HR is 75. -Tomas ACCE #[id number] -Dr. Graham paged cocnerning Pt's HR.
--- NOTE | 2021-11-30 12:15 | NUR ---
Initial: Pt admit dx severe edema and UTI. PO intake ~100% of Na restricted diet, meeting nutritional needs. LBM 11/29, receiving routine bowel care. No intervention at this time. Will continue to monitor. Recommendations: 1. Continue w/ Na restricted diet as tolerated; advance to regular diet as medically indicated 2. Continue w/ routine bowel care 3. Weekly wt Addendum: 11/30/21 at 1215 by Alexei Jain - [employer] Claims Adjuster ALESSANDRA Amended: Links added. Addendum: 11/30/21 at [address] I have reviewed and agree with note by [employer] Claims AdjusterRamez Madison RD
[2021-11-30] MEDS ORDERED: FURO40TA4 PO ×3 (13:18→14:37)
[2021-11-30] MEDS ORDERED: DILT30TA2 PO (13:18)
[2021-11-30] MEDS ORDERED: LAN0.125T PO (13:18)
--- NOTE | 2021-11-30 15:30 | NUR ---
Pt DC'd home with . Per Dr. Graham; Pt is stable for DC. Pt's vitals stable upon DC. IV removed, canula intact. Tele-box removed and returned to tele-tech. DC paperwork printed out and gone over with Pt. Allowed pt to ask questions concerning DC and then answered them. New prescriptions called into [facility] pharmacy on [address]. pt has a follow up appt with her PCP, Dr. Suazo, on 12/04/21 AT [facility]. Pt's belongings gathered and sent with Pt. Pt wheeled down to lobby in wheel chair. Pt left in private vehicle with for home.
== END 2021-11-30 15:30 | disposition home health service (06) | DRG 291 ==
LOC: ER 21:54 → UNDOADMIN 11-26 02:11 → ED HOLD 11-26 02:11 → MED 3N 11-26 19:10
PROVIDERS: ADMIT Family Medicine; ATTEND Internal Medicine
DX: I13.0 Hypertensive heart and chronic kidney disease with heart failure and stage 1 through stage 4 chronic kidney disease, or unspecified chronic kidney disease (principal); I50.33 Acute on chronic diastolic (congestive) heart failure; N39.0 Urinary tract infection, site not specified; N17.9 Acute kidney failure, unspecified; Z68.41 Body mass index [BMI] 40.0-44.9, adult; S31.135A Puncture wound of abdominal wall without foreign body, periumbilic region without penetration into peritoneal cavity, initial encounter; I48.0 Paroxysmal atrial fibrillation; I27.20 Pulmonary hypertension, unspecified; I25.10 Atherosclerotic heart disease of native coronary artery without angina pectoris; N18.30 Chronic kidney disease, stage 3 unspecified; E78.5 Hyperlipidemia, unspecified; K21.9 Gastro-esophageal reflux disease without esophagitis; E11.42 Type 2 diabetes mellitus with diabetic polyneuropathy; E11.22 Type 2 diabetes mellitus with diabetic chronic kidney disease; E03.9 Hypothyroidism, unspecified; M19.90 Unspecified osteoarthritis, unspecified site; B96.20 Unspecified Escherichia coli [E. coli] as the cause of diseases classified elsewhere; E66.01 Morbid (severe) obesity due to excess calories; G47.33 Obstructive sleep apnea (adult) (pediatric); X58.XXXA Exposure to other specified factors, initial encounter; Y93.89 Activity, other specified; Y92.89 Other specified places as the place of occurrence of the external cause; Y99.8 Other external cause status; Z87.891 Personal history of nicotine dependence; Z95.0 Presence of cardiac pacemaker; Z82.3 Family history of stroke; Z90.49 Acquired absence of other specified parts of digestive tract; Z71.3 Dietary counseling and surveillance; Z82.0 Family history of epilepsy and other diseases of the nervous system; Z79.899 Other long term (current) drug therapy; Z79.01 Long term (current) use of anticoagulants; Z88.8 Allergy status to other drugs, medicaments and biological substances; Z82.49 Family history of ischemic heart disease and other diseases of the circulatory system; Z87.440 Personal history of urinary (tract) infections
CPT/HCPCS: 36415; 71045; 80053; 80061; 81001; 82948; 83690; 83735; 83880; 84100; 84132; 84484; 85008; 85025; 85610; 85730; 87077; 87081; 87088; 87186; 93005; 93308; 96374; 99285; G0378; J0696; J1160; J1815; J1940; J3490

== ENCOUNTER 2022-06-08 16:02 | Inpatient (IN) | payer MEDICARE, BC ==
[~2022-06-08] VITALS: Ht 162.6 cm; Wt 106.4 kg
[~2022-06-08 16:02] MED LIST changes: -CARV6.253 PO; -CHOL4PAC PO; +DILT30TA2 PO; -HYDR-3973 PO; +LAN0.125T PO; -LISI10TA27 PO; -LYR25C PO; -MAGN400C PO; -OMEP20CA15 PO; -SPIR25TA5 PO; -VIT1CAPS9 PO
[2022-06-08 19:34] LABS: BASOPHILS % (AUTO) 0.6 % (0-1); EOSINOPHILS # (AUTO) 0.1 X10'3 (0-0.9); EOSINOPHILS % (AUTO) 1.8 % (0-6); LYMPHOCYTES # (AUTO) 0.9 X10'3 (1.1-4.8); LYMPHOCYTES % (AUTO) 16.8 % (21-51); MEAN CORPUSCULAR HEMOGLOBIN 18.3 PG (27.0-31.0); MEAN CORPUSCULAR HGB CONC 29.6 g/dL (33.0-36.5); MEAN CORPUSCULAR VOLUME 61.8 FL (78-98); MONOCYTES # (AUTO) 0.6 X10'3 (0-0.9); MONOCYTES % (AUTO) 10.6 % (2-12); NEUTROPHILS # (AUTO) 3.9 X10'3 (1.8-7.7); NEUTROPHILS % (AUTO) 70.2 % (42-75); PLATELET COUNT 136 X10'3 (140-440); RED BLOOD COUNT 3.44 X10'6 (4.20-5.60); RED CELL DISTRIBUTION WIDTH 22.8 % (11.5-14.5); WHITE BLOOD COUNT 5.6 X10'3 (4.5-11.0)
[2022-06-08 19:36] LABS: ALANINE AMINOTRANSFERASE 15 U/L (12-78); ALBUMIN 3.2 G/DL (3.4-5.0); ALBUMIN/GLOBULIN RATIO 0.9 (1.1-1.5); ALKALINE PHOSPHATASE 94 IU/L (46-116); ANION GAP 9 (8-16); ASPARTATE AMINO TRANSFERASE 17 U/L (10-37); BILIRUBIN,TOTAL 1.3 MG/DL (0.1-1.0); BLOOD UREA NITROGEN 24 MG/DL (7-18); CALCIUM 8.5 MG/DL (8.5-10.1); CHLORIDE 103 MMOL/L (99-107); GLUCOSE 105 MG/DL (70-104); POTASSIUM 3.7 MMOL/L (3.5-5.1); SODIUM 140 MMOL/L (135-145); TOTAL PROTEIN 6.8 G/DL (6.4-8.2); eGFR 33 ML/MIN
[2022-06-08 19:42] LABS: HEMATOCRIT 21.3 % (35.0-45.0); HEMOGLOBIN 6.3 g/dl (12.0-16.0)
[2022-06-08 20:22] LABS: ANISOCYTOSIS 3+; HYPOCHROMASIA 2+; LARGE PLATELETS FEW; MICROCYTOSIS 2+; PLATELET ESTIMATE DECREASED
[2022-06-08 20:23] LABS: ELLIPTOCYTES FEW
[2022-06-08] MEDS ORDERED: fentaNYL/PF 50MCG/1 ML 2ML syringe IV ONE (21:30)
[2022-06-08] MEDS ORDERED: ondansetron/PF 4mg/2ml inj IV ONE (21:30)
[2022-06-08 21:50] VITALS: BP 152/62
[2022-06-08 22:10] VITALS: BP 137/69
[2022-06-08] MEDS ORDERED: magnesium 4gm in 100ml NS 100 ML IV PRN (22:15)
[2022-06-08] MEDS ORDERED: ondansetron/PF 4mg/2ml inj IV PRN (22:15)
[2022-06-08] MEDS ORDERED: POTASSIUM BICARB 20meq eff tab 20 MEQ TABLET.EFF PO PRN (22:15)
[2022-06-08] MEDS ORDERED: magnesium 2GM in 50ml NS 50 ML IV PRN (22:15)
[2022-06-08] MEDS ORDERED: mag hydrox/Alum hydrox/simeth 30ml oral suspension PO PRN (22:15)
[2022-06-08] MEDS ORDERED: magnesium hydroxide 30ml (MOM) UD suspension PO PRN (22:15)
[2022-06-08] MEDS ORDERED: acetaminophen 325mg tablet PO PRN (22:15)
[2022-06-08] MEDS ORDERED: potassium CL 10mEq/100ml bag 100 ML IV PRN (22:15)
[2022-06-08] MEDS ORDERED: magnesium Cl slow-release 64mg tablet PO PRN (22:15)
[2022-06-08] MEDS ORDERED: insulin Lispro (HumaLOG) vial - multi-dose SQ SCH (22:35)
[2022-06-08] MEDS ORDERED: dextrose 50%-water 50ml dispensing syringe IV PRN ×2 (22:35)
[2022-06-08] MEDS ORDERED: MESSAGE TO PHARMACY PO ONE (22:35)
[2022-06-08] MEDS ORDERED: glucagon, human recombinant 1mg kit SUBCUT PRN (22:35)
[2022-06-08] MEDS ORDERED: DEXTROSE 15 GM of carb/4 tabs (each vial/BOTTLE has 4 tablets) PO PRN ×2 (22:35)
[2022-06-08 22:44] LABS: MAGNESIUM 1.9 MG/DL (1.5-2.4)
[2022-06-08 22:55] VITALS: BP 128/58
[2022-06-08 23:55] VITALS: BP 142/70
[2022-06-09] VITALS (12 sets, daily range): BP systolic 131–153; BP diastolic 47–79
--- NOTE | 2022-06-09 03:58 | NUR ---
Report given to Kavitha BETANCOURT
--- NOTE | 2022-06-09 03:59 | NUR ---
Report given to me by Carrie BETANCOURT.
[2022-06-09 04:01] LABS: BASOPHILS % (AUTO) 0.8 % (0-1); EOSINOPHILS # (AUTO) 0.1 X10'3 (0-0.9); LYMPHOCYTES # (AUTO) 0.9 X10'3 (1.1-4.8); MEAN CORPUSCULAR VOLUME 64.6 FL (78-98); NEUTROPHILS # (AUTO) 3.1 X10'3 (1.8-7.7); PLATELET COUNT 122 X10'3 (140-440); RED CELL DISTRIBUTION WIDTH 25.3 % (11.5-14.5); WHITE BLOOD COUNT 4.7 X10'3 (4.5-11.0)
[2022-06-09 04:04] LABS: EOSINOPHILS % (AUTO) 2.5 % (0-6); HEMATOCRIT 22.6 % (35.0-45.0); LYMPHOCYTES % (AUTO) 19.2 % (21-51); MEAN CORPUSCULAR HEMOGLOBIN 19.8 PG (27.0-31.0); MEAN CORPUSCULAR HGB CONC 30.6 g/dL (33.0-36.5); MEAN PLATELET VOLUME 8.6 FL (7.4-10.4); MONOCYTES # (AUTO) 0.5 X10'3 (0-0.9); MONOCYTES % (AUTO) 11.7 % (2-12); NEUTROPHILS % (AUTO) 65.8 % (42-75)
[2022-06-09 04:08] LABS: HEMOGLOBIN 6.9 g/dl (12.0-16.0)
[2022-06-09 04:09] LABS: ALANINE AMINOTRANSFERASE 16 U/L (12-78); ALBUMIN 3.2 G/DL (3.4-5.0); ALBUMIN/GLOBULIN RATIO 0.9 (1.1-1.5); ALKALINE PHOSPHATASE 91 IU/L (46-116); ANION GAP 4 (8-16); ASPARTATE AMINO TRANSFERASE 21 U/L (10-37); BILIRUBIN,TOTAL 1.4 MG/DL (0.1-1.0); BLOOD UREA NITROGEN 21 MG/DL (7-18); CALCIUM 8.5 MG/DL (8.5-10.1); CHLORIDE 101 MMOL/L (99-107); GLUCOSE 96 MG/DL (70-104); POTASSIUM 3.3 MMOL/L (3.5-5.1); SODIUM 135 MMOL/L (135-145); TOTAL CARBON DIOXIDE 29.6 MMOL/L (24-32); TOTAL PROTEIN 6.6 G/DL (6.4-8.2); eGFR 33 ML/MIN
--- NOTE | 2022-06-09 05:00 | NUR ---
Called Dr. Avila for pain medicine she only has Tylenol ordered and he gave her [place] as prescribed from her PMD.
[2022-06-09] MEDS: HYDROcodone/acetaminophen 5mg/325mg tablet PO PRN ×2 (05:39→20:54)
[2022-06-09 06:10] LABS: OCCULT BLOOD STOOL NEGATIVE (Neg)
--- NOTE | 2022-06-09 06:30 | NUR ---
Problems reprioritized. Patient report given, questions answered & plan of care reviewed with Idania BETANCOURT.
[2022-06-09 06:32] LABS: ANISOCYTOSIS 3+; HYPOCHROMASIA 1+; MICROCYTOSIS 2+; PLATELET ESTIMATE DECREASED; POIKILOCYTOSIS FEW; STOMATOCYTES 1+
--- NOTE | 2022-06-09 06:46 | NUR ---
Patient in room ORTHO 4024. I have received report from ASIA Plummer and had the opportunity to ask questions and assume patient care.
[2022-06-09] MEDS: K and/or MAG REPLACEMENT MC SCH ×2 (08:00→20:00)
[2022-06-09] MEDS ORDERED: docusate sod 100mg capsule PO SCH (08:00)
[2022-06-09] MEDS: POTASSIUM BICARB 20meq eff tab 20 MEQ TABLET.EFF PO PRN ×3 (10:18→20:53)
[2022-06-09 14:38] LABS: HEMATOCRIT 24.7 % (35.0-45.0); HEMOGLOBIN 7.5 g/dl (12.0-16.0); MEAN CORPUSCULAR HEMOGLOBIN 20.3 PG (27.0-31.0); MEAN CORPUSCULAR HGB CONC 30.6 g/dL (33.0-36.5); MEAN CORPUSCULAR VOLUME 66.4 FL (78-98); MEAN PLATELET VOLUME 8.5 FL (7.4-10.4); PLATELET COUNT 134 X10'3 (140-440); RED BLOOD COUNT 3.71 X10'6 (4.20-5.60); RED CELL DISTRIBUTION WIDTH 27.1 % (11.5-14.5); WHITE BLOOD COUNT 5.9 X10'3 (4.5-11.0)
--- NOTE | 2022-06-09 18:41 | NUR ---
Patient in room ORTHO 4024. I have received report from ASIA Kent and had the opportunity to ask questions and assume patient care.
--- NOTE | 2022-06-09 18:52 | NUR ---
Problems reprioritized. Patient report given, questions answered & plan of care reviewed with ASIA Peña.
[2022-06-09] MEDS: atorvastatin 10mg tablet PO SCH (20:54)
[2022-06-09] MEDS: gabapentin 300mg capsule PO SCH (20:54)
[2022-06-09] MEDS: pantoprazole 40mg Tablet.DR PO SCH (20:54)
[2022-06-09] MEDS: insulin glargine (Lantus) pen - multi-dose SQ SCH (21:00)
[2022-06-10 06:00] VITALS: BP 155/77
[2022-06-10 06:07] LABS: BASOPHILS % (AUTO) 0.8 % (0-1); EOSINOPHILS # (AUTO) 0.2 X10'3 (0-0.9); EOSINOPHILS % (AUTO) 3.6 % (0-6); HEMATOCRIT 24.8 % (35.0-45.0); HEMOGLOBIN 7.6 g/dl (12.0-16.0); MEAN CORPUSCULAR HEMOGLOBIN 20.2 PG (27.0-31.0); MEAN CORPUSCULAR HGB CONC 30.5 g/dL (33.0-36.5); MEAN CORPUSCULAR VOLUME 66.3 FL (78-98); MEAN PLATELET VOLUME 9.5 FL (7.4-10.4); MONOCYTES # (AUTO) 0.6 X10'3 (0-0.9); MONOCYTES % (AUTO) 10.7 % (2-12); NEUTROPHILS # (AUTO) 3.9 X10'3 (1.8-7.7); NEUTROPHILS % (AUTO) 66.9 % (42-75); PLATELET COUNT 115 X10'3 (140-440); RED BLOOD COUNT 3.74 X10'6 (4.20-5.60); RED CELL DISTRIBUTION WIDTH 26.3 % (11.5-14.5); WHITE BLOOD COUNT 5.8 X10'3 (4.5-11.0)
--- NOTE | 2022-06-10 06:25 | NUR ---
received report from danny ulloa
[2022-06-10 06:26] LABS: ALANINE AMINOTRANSFERASE 14 U/L (12-78); ALBUMIN 3.2 G/DL (3.4-5.0); ALBUMIN/GLOBULIN RATIO 0.9 (1.1-1.5); ALKALINE PHOSPHATASE 92 IU/L (46-116); ANION GAP 6 (8-16); ASPARTATE AMINO TRANSFERASE 19 U/L (10-37); BILIRUBIN,TOTAL 1.1 MG/DL (0.1-1.0); BLOOD UREA NITROGEN 24 MG/DL (7-18); BUN/CREATININE RATIO 15.6 (6.6-38.0); CALCIUM 8.5 MG/DL (8.5-10.1); CHLORIDE 106 MMOL/L (99-107); CREATININE 1.54 MG/DL (0.40-0.90); GLUCOSE 96 MG/DL (70-104); MAGNESIUM 2.2 MG/DL (1.5-2.4); POTASSIUM 3.8 MMOL/L (3.5-5.1); SODIUM 142 MMOL/L (135-145); TOTAL CARBON DIOXIDE 30.1 MMOL/L (24-32); TOTAL PROTEIN 6.6 G/DL (6.4-8.2); eGFR 32 ML/MIN
--- NOTE | 2022-06-10 06:38 | NUR ---
Problems reprioritized. Patient report given, questions answered & plan of care reviewed with ASIA Webb.
--- NOTE | 2022-06-10 06:57 | NUR ---
DM consult: Pt w/ hx of DM A1c 6.2 per EMR. Well controlled and appropriate. DM ed not indicated at this time. Addendum: 06/10/22 at [address] Amended: Links added.
[2022-06-10] MEDS: levoTHYROXINE 25mcg tablet PO SCH ×2 (07:00→07:13)
[2022-06-10] MEDS: K and/or MAG REPLACEMENT MC SCH ×2 (08:00→20:00)
[2022-06-10] MEDS: digoxin 125mcg (0.125mg) tablet PO SCH (08:19)
[2022-06-10] MEDS: duloxetine 30mg CAPSULE.DR PO SCH (08:19)
[2022-06-10] MEDS: pantoprazole 40mg Tablet.DR PO SCH ×2 (08:19→20:28)
[2022-06-10] MEDS: gabapentin 300mg capsule PO SCH ×2 (08:20→20:28)
[2022-06-10 10:00] VITALS: BP 133/38
[2022-06-10 10:29] LABS: CLARITY,URINE CLOUDY (Clear); COLOR,URINE YELLOW (Yellow); GLUCOSE, URINE NEGATIVE (Neg); KETONES,URINE NEGATIVE (Neg); LEUKOCYTE ESTERASE ,URINE SMALL (Neg); NITRITES, URINE POSITIVE (Neg); OCCULT BLOOD,URINE NEGATIVE (Neg); PROTEIN,URINE TRACE mg/dl (Neg)
[2022-06-10 10:34] LABS: UA COLLECTION TYPE NON-SPECIFIED
[2022-06-10 10:35] LABS: WBC,URINE 30-50 /HPF (0-4)
[2022-06-10 10:36] LABS: BACTERIA,URINE 4+ /HPF (Neg); MUCUS STRANDS NONE SEEN /LPF (Neg); RBC,URINE NONE SEEN /HPF (0-2); SQUAMOUS EPITHELIAL CELL,UR FEW /LPF (FEW); TRANSITIONAL EPI CELLS,URINE FEW /HPF
--- NOTE | 2022-06-10 14:41 | NUR ---
sent a page to physical therapy per hospitalist to work w/pt for possible d/c today, waiting for physical therapy response
[2022-06-10 18:00] VITALS: BP 147/93
--- NOTE | 2022-06-10 18:31 | NUR ---
gave report to danny del rio
[2022-06-10] MEDS ORDERED: PREG225C PO (19:12)
--- NOTE | 2022-06-10 19:29 | NUR ---
MESSAGE: [id number] Giovanna Caldera 81 here for Anemia. she takes Lyrica 225mgs bid. Can she re-start tonight? her legs has been bothering so much. thank you. [phone] Jodi
[2022-06-10] MEDS: HYDROcodone/acetaminophen 5mg/325mg tablet PO PRN (19:32)
[2022-06-10] MEDS ORDERED: pregabalin 75mg capsule PO ONE (19:50)
[2022-06-10] MEDS: atorvastatin 10mg tablet PO SCH (20:28)
[2022-06-10] MEDS: insulin glargine (Lantus) pen - multi-dose SQ SCH (21:00)
[2022-06-10 22:00] VITALS: BP 143/62
[2022-06-11 05:44] LABS: BASOPHILS % (AUTO) 0.6 % (0-1); EOSINOPHILS # (AUTO) 0.2 X10'3 (0-0.9); EOSINOPHILS % (AUTO) 4.3 % (0-6); HEMATOCRIT 25.7 % (35.0-45.0); HEMOGLOBIN 7.7 g/dl (12.0-16.0); LYMPHOCYTES # (AUTO) 1.1 X10'3 (1.1-4.8); LYMPHOCYTES % (AUTO) 19.6 % (21-51); MEAN CORPUSCULAR HEMOGLOBIN 20.3 PG (27.0-31.0); MEAN CORPUSCULAR HGB CONC 30.1 g/dL (33.0-36.5); MEAN CORPUSCULAR VOLUME 67.3 FL (78-98); MEAN PLATELET VOLUME 9.3 FL (7.4-10.4); MONOCYTES # (AUTO) 0.5 X10'3 (0-0.9); MONOCYTES % (AUTO) 8.5 % (2-12); NEUTROPHILS # (AUTO) 3.7 X10'3 (1.8-7.7); PLATELET COUNT 129 X10'3 (140-440); RED BLOOD COUNT 3.81 X10'6 (4.20-5.60); RED CELL DISTRIBUTION WIDTH 27.3 % (11.5-14.5); WHITE BLOOD COUNT 5.5 X10'3 (4.5-11.0)
[2022-06-11 06:00] VITALS: BP 153/74
[2022-06-11 06:02] LABS: ALANINE AMINOTRANSFERASE 17 U/L (12-78); ALBUMIN 2.9 G/DL (3.4-5.0); ALBUMIN/GLOBULIN RATIO 0.8 (1.1-1.5); ALKALINE PHOSPHATASE 95 IU/L (46-116); ANION GAP 8 (8-16); ASPARTATE AMINO TRANSFERASE 17 U/L (10-37); BILIRUBIN,TOTAL 1.1 MG/DL (0.1-1.0); BLOOD UREA NITROGEN 23 MG/DL (7-18); BUN/CREATININE RATIO 15.5 (6.6-38.0); CALCIUM 8.3 MG/DL (8.5-10.1); CHLORIDE 105 MMOL/L (99-107); CREATININE 1.48 MG/DL (0.40-0.90); GLUCOSE 120 MG/DL (70-104); POTASSIUM 3.7 MMOL/L (3.5-5.1); SODIUM 142 MMOL/L (135-145); TOTAL CARBON DIOXIDE 28.6 MMOL/L (24-32); TOTAL PROTEIN 6.5 G/DL (6.4-8.2); eGFR 34 ML/MIN
--- NOTE | 2022-06-11 06:20 | NUR ---
received report from danny del rio
--- NOTE | 2022-06-11 06:36 | NUR ---
Problems reprioritized. Patient report given, questions answered & plan of care reviewed with ASIA BARRIOS.
[2022-06-11] MEDS: levoTHYROXINE 25mcg tablet PO SCH ×2 (06:51→06:56)
[2022-06-11] MEDS: K and/or MAG REPLACEMENT MC SCH (07:33)
[2022-06-11] MEDS: gabapentin 300mg capsule PO SCH (07:52)
[2022-06-11] MEDS: pantoprazole 40mg Tablet.DR PO SCH (07:52)
[2022-06-11] MEDS: duloxetine 30mg CAPSULE.DR PO SCH (07:53)
[2022-06-11] MEDS: digoxin 125mcg (0.125mg) tablet PO SCH (07:53)
[2022-06-11 09:39] VITALS: BP 133/52
[2022-06-11] MEDS ORDERED: CIPR250T4 PO (10:53)
[2022-06-11] MEDS ORDERED: APIX5TAB3 PO (10:53)
[2022-06-11] MEDS ORDERED: FURO20TA4 PO (10:53)
[2022-06-11] MEDS ORDERED: PANT40TA54 PO (10:53)
[2022-06-11] MEDS ORDERED: FERR324T4 PO (10:56)
--- NOTE | 2022-06-11 12:00 | NUR ---
pt is waiting for to pick her up and she does not want to bg taken at this time, continue to educate and to monitor
--- NOTE | 2022-06-11 13:09 | NUR ---
pt d/c with instructions, understanding of instructions, and w/all belongings in wheelchair accompanied by nursing staff to go home and f/u w/pcp
[2022-06-11] MEDS ORDERED: ciprofloxacin 250mg tablet PO SCH (20:00)
== END 2022-06-11 13:00 | disposition home or self-care (01) | DRG 811 ==
LOC: ER 16:03 → ED HOLD 22:18 → ORTHO 4S 06-09 04:09
PROVIDERS: ADMIT Internal Medicine; ATTEND Internal Medicine
PROC: 30233N1 Transfusion of Nonautologous Red Blood Cells into Peripheral Vein, Percutaneous Approach (ICD-10-PCS; principal; 2022-06-08)
DX: D46.9 Myelodysplastic syndrome, unspecified (principal); N17.0 Acute kidney failure with tubular necrosis; I13.0 Hypertensive heart and chronic kidney disease with heart failure and stage 1 through stage 4 chronic kidney disease, or unspecified chronic kidney disease; I50.32 Chronic diastolic (congestive) heart failure; N39.0 Urinary tract infection, site not specified; D50.9 Iron deficiency anemia, unspecified; D63.8 Anemia in other chronic diseases classified elsewhere; D69.6 Thrombocytopenia, unspecified; E03.9 Hypothyroidism, unspecified; I48.91 Unspecified atrial fibrillation; G47.33 Obstructive sleep apnea (adult) (pediatric); G89.29 Other chronic pain; M19.90 Unspecified osteoarthritis, unspecified site; E11.22 Type 2 diabetes mellitus with diabetic chronic kidney disease; E78.5 Hyperlipidemia, unspecified; E87.6 Hypokalemia; I25.10 Atherosclerotic heart disease of native coronary artery without angina pectoris; K21.9 Gastro-esophageal reflux disease without esophagitis; K42.9 Umbilical hernia without obstruction or gangrene; N18.30 Chronic kidney disease, stage 3 unspecified; Z79.01 Long term (current) use of anticoagulants; Z82.0 Family history of epilepsy and other diseases of the nervous system; Z82.3 Family history of stroke; Z82.49 Family history of ischemic heart disease and other diseases of the circulatory system; Z88.8 Allergy status to other drugs, medicaments and biological substances; Z87.440 Personal history of urinary (tract) infections; Z90.49 Acquired absence of other specified parts of digestive tract; Z79.899 Other long term (current) drug therapy; Z79.890 Hormone replacement therapy
CPT/HCPCS: 36415; 36430; 80053; 80162; 81001; 82272; 82948; 83036; 83735; 84443; 85008; 85025; 85027; 86885; 86900; 86901; 86920; 87077; 87081; 87088; 87186; 97110; 97116; 97162; 97530; 99285; A6258; G0378; J1815; J2405; J3010; J7030; J7040; P9016

== ENCOUNTER 2022-08-22 21:10 | Inpatient (IN) | payer MEDICARE, BC ==
[~2022-08-22] VITALS: Ht 162.6 cm; Wt 89.5 kg
[~2022-08-22 21:10] MED LIST changes: +CIPR250T4 PO; +FERR324T4 PO; +FURO20TA4 PO; -FURO40TA4 PO; +PANT40TA54 PO; +PREG225C PO
[2022-08-22 22:34] LABS: BASOPHILS % (AUTO) 0.7 % (0-1); EOSINOPHILS # (AUTO) 0.1 X10'3 (0-0.9); EOSINOPHILS % (AUTO) 1.1 % (0-6); LYMPHOCYTES # (AUTO) 1.1 X10'3 (1.1-4.8); LYMPHOCYTES % (AUTO) 18.7 % (21-51); MEAN CORPUSCULAR HEMOGLOBIN 21.7 PG (27.0-31.0); MEAN CORPUSCULAR HGB CONC 31.2 g/dL (33.0-36.5); MEAN CORPUSCULAR VOLUME 69.6 FL (78-98); MEAN PLATELET VOLUME 9.4 FL (7.4-10.4); MONOCYTES # (AUTO) 0.8 X10'3 (0-0.9); MONOCYTES % (AUTO) 13.8 % (2-12); NEUTROPHILS % (AUTO) 65.7 % (42-75); PLATELET COUNT 185 X10'3 (140-440); RED BLOOD COUNT 2.25 X10'6 (4.20-5.60); RED CELL DISTRIBUTION WIDTH 21.4 % (11.5-14.5); WHITE BLOOD COUNT 6.1 X10'3 (4.5-11.0)
[2022-08-22 22:38] LABS: HEMATOCRIT 15.6 % (35.0-45.0); HEMOGLOBIN 4.9 g/dl (12.0-16.0)
[2022-08-22 22:42] LABS: D-DIMER 0.73 MG/L FEU (0-0.50)
[2022-08-22 22:45] LABS: ALANINE AMINOTRANSFERASE 16 U/L (12-78); ALBUMIN 3.3 G/DL (3.4-5.0); ALBUMIN/GLOBULIN RATIO 0.9 (1.1-1.5); ALKALINE PHOSPHATASE 100 IU/L (46-116); ANION GAP 11 (8-16); ASPARTATE AMINO TRANSFERASE 16 U/L (10-37); BILIRUBIN,TOTAL 0.7 MG/DL (0.1-1.0); BLOOD UREA NITROGEN 23 MG/DL (7-18); BUN/CREATININE RATIO 14.6 (6.6-38.0); CALCIUM 8.6 MG/DL (8.5-10.1); CHLORIDE 101 MMOL/L (99-107); CREATININE 1.58 MG/DL (0.40-0.90); GLUCOSE 147 MG/DL (70-104); SODIUM 140 MMOL/L (135-145); TOTAL CARBON DIOXIDE 28.1 MMOL/L (24-32); TOTAL PROTEIN 6.8 G/DL (6.4-8.2); eGFR 31 ML/MIN
[2022-08-22 22:48] LABS: POTASSIUM 2.7 MMOL/L (3.5-5.1)
[2022-08-22 22:54] LABS: APTT 44 SECONDS (22-32)
[2022-08-22 22:56] LABS: ABSOLUTE RETICS # 101100 /CUMM (23000-93000); RETICULOCYTE % (AUTO) 4.5 % (0.5-1.5)
[2022-08-22 23:04] LABS: ANISOCYTOSIS 3+; MICROCYTOSIS 2+; PLATELET ESTIMATE NORMAL
[2022-08-22 23:05] LABS: POLYCHROMASIA 1+
[2022-08-22 23:06] LABS: LARGE PLATELETS MODERATE; TARGET CELLS FEW
[2022-08-22 23:07] LABS: POIKILOCYTOSIS 1+
[2022-08-22 23:10] LABS: MAGNESIUM 1.6 MG/DL (1.5-2.4); TEAR DROP CELLS FEW
[2022-08-22] MEDS ORDERED: DEXTROSE 15 GM of carb/4 tabs (each vial/BOTTLE has 4 tablets) PO PRN ×2 (23:25)
[2022-08-22] MEDS ORDERED: dextrose 50%-water 50ml dispensing syringe IV PRN ×2 (23:25)
[2022-08-22] MEDS ORDERED: morphine 2 MG/ML inj. syringe IV PRN ×2 (23:25)
[2022-08-22] MEDS ORDERED: acetaminophen 325mg tablet PO PRN ×2 (23:25)
[2022-08-22] MEDS ORDERED: bisacodyl 10mg suppository rectal RC PRN (23:25)
[2022-08-22] MEDS ORDERED: insulin Lispro (HumaLOG) vial - multi-dose SQ SCH (23:25)
[2022-08-22] MEDS ORDERED: mag hydrox/Alum hydrox/simeth 30ml oral suspension PO PRN (23:25)
[2022-08-22] MEDS ORDERED: magnesium hydroxide 30ml (MOM) UD suspension PO PRN (23:25)
[2022-08-22] MEDS ORDERED: ondansetron/PF 4mg/2ml inj IV PRN (23:25)
[2022-08-22] MEDS ORDERED: MESSAGE TO PHARMACY PO ONE (23:25)
[2022-08-22] MEDS ORDERED: glucagon, human recombinant 1mg kit SUBCUT PRN (23:25)
[2022-08-22] MEDS ORDERED: metoclopramide 5 mg/ml inj IV PRN (23:25)
[2022-08-22] MEDS: pantoprazole 40MG/NS 100ML BAG 100 ML IV SCH (23:51)
[2022-08-23] VITALS (19 sets, daily range): BP systolic 106–129; BP diastolic 22–68
[2022-08-23 00:21] LABS: HEMOGLOBIN A1C 6.5 % (4.5-6.2)
[2022-08-23 00:24] LABS: LACTATE DEHYDROGENASE 225 U/L (81-234)
[2022-08-23 00:27] LABS: FERRITIN 11 NG/ML (8-252)
[2022-08-23 00:54] LABS: % IRON SATURATION 2 % (11-46); IRON 8 UG/DL (49-151); TOTAL IRON BINDING CAPACITY 374 UG/DL (259-388)
[2022-08-23] MEDS ORDERED: APIX5TAB3 PO (01:21)
[2022-08-23] MEDS ORDERED: DILT-36 PO (01:21)
[2022-08-23] MEDS ORDERED: FURO40TA4 PO (01:21)
[2022-08-23] MEDS ORDERED: POTA-206 PO (01:21)
[2022-08-23] MEDS ORDERED: LAN0.125T PO (01:28)
[2022-08-23] MEDS ORDERED: FERR324T4 PO (01:28)
[2022-08-23] MEDS ORDERED: CALC0.2535 PO (01:28)
[2022-08-23] MEDS ORDERED: PANT40TA54 PO (01:28)
[2022-08-23] MEDS ORDERED: HYDR-3965 PO (01:28)
[2022-08-23] MEDS ORDERED: LEVO50TA8 PO (01:28)
[2022-08-23 07:50] LABS: BASOPHILS % (AUTO) 0.7 % (0-1); EOSINOPHILS # (AUTO) 0.1 X10'3 (0-0.9); EOSINOPHILS % (AUTO) 1.6 % (0-6); LYMPHOCYTES % (AUTO) 22.3 % (21-51); MEAN CORPUSCULAR HEMOGLOBIN 23.1 PG (27.0-31.0); MEAN CORPUSCULAR HGB CONC 32.3 g/dL (33.0-36.5); MEAN CORPUSCULAR VOLUME 71.6 FL (78-98); MEAN PLATELET VOLUME 8.9 FL (7.4-10.4); MONOCYTES # (AUTO) 0.6 X10'3 (0-0.9); MONOCYTES % (AUTO) 13.8 % (2-12); NEUTROPHILS # (AUTO) 2.8 X10'3 (1.8-7.7); NEUTROPHILS % (AUTO) 61.6 % (42-75); PLATELET COUNT 147 X10'3 (140-440); RED BLOOD COUNT 2.36 X10'6 (4.20-5.60); RED CELL DISTRIBUTION WIDTH 21.4 % (11.5-14.5); WHITE BLOOD COUNT 4.6 X10'3 (4.5-11.0)
[2022-08-23 07:54] LABS: HEMATOCRIT 16.9 % (35.0-45.0); HEMOGLOBIN 5.5 g/dl (12.0-16.0)
[2022-08-23] MEDS: docusate sod 100mg capsule PO SCH ×3 (08:00→20:38)
[2022-08-23 08:07] LABS: ANION GAP 10 (8-16); BLOOD UREA NITROGEN 19 MG/DL (7-18); BUN/CREATININE RATIO 13.8 (6.6-38.0); CALCIUM 8.2 MG/DL (8.5-10.1); CHLORIDE 104 MMOL/L (99-107); CREATININE 1.38 MG/DL (0.40-0.90); GLUCOSE 127 MG/DL (70-104); SODIUM 143 MMOL/L (135-145); TOTAL CARBON DIOXIDE 29.4 MMOL/L (24-32); eGFR 37 ML/MIN
[2022-08-23 08:20] LABS: POTASSIUM 2.6 MMOL/L (3.5-5.1)
[2022-08-23] MEDS: pantoprazole 40MG/NS 100ML BAG 100 ML IV SCH ×2 (08:21→23:28)
[2022-08-23] MEDS ORDERED: POTASSIUM BICARB 20meq eff tab 20 MEQ TABLET.EFF PO PRN ×2 (08:40)
[2022-08-23] MEDS ORDERED: magnesium 4gm in 100ml NS 100 ML IV PRN (08:40)
[2022-08-23] MEDS ORDERED: magnesium Cl slow-release 64mg tablet PO PRN (08:40)
[2022-08-23] MEDS ORDERED: magnesium 2GM in 50ml NS 50 ML IV PRN (08:40)
[2022-08-23 09:15] LABS: MAGNESIUM 1.6 MG/DL (1.5-2.4)
--- NOTE | 2022-08-23 09:19 | NUR ---
Downtime form required for PRBC transfusion. Transfusion initiated at 0915.
[2022-08-23] MEDS: potassium CL 10mEq/100ml bag 100 ML IV PRN ×3 (11:34→14:04)
[2022-08-23 11:48] LABS: MEAN CORPUSCULAR HGB CONC 32.3 g/dL (33.0-36.5); MEAN CORPUSCULAR VOLUME 74.3 FL (78-98); MEAN PLATELET VOLUME 8.6 FL (7.4-10.4); PLATELET COUNT 134 X10'3 (140-440); RED BLOOD COUNT 2.44 X10'6 (4.20-5.60); RED CELL DISTRIBUTION WIDTH 22.8 % (11.5-14.5); WHITE BLOOD COUNT 3.9 X10'3 (4.5-11.0)
[2022-08-23 11:51] LABS: HEMATOCRIT 18.1 % (35.0-45.0); HEMOGLOBIN 5.9 g/dl (12.0-16.0)
--- NOTE | 2022-08-23 12:15 | NUR ---
received report from Cary in ED. Patient dropped off in room, not sure how long patient was in room, I was not notified she had arrived. After greeting patient I gave her the call light still hanging on the wall, inserted the PIV tubing attached to patient and bag of potassium into a pump and began running the replacement. Placed patient belongings in closet and bedside table. Will notify Dr Graham of critical HGB, per ED nurse report she did not page with the critical result.
--- NOTE | 2022-08-23 12:32 | NUR ---
Message: Re Giovanna Henderson Room 3012B HGB post 2 Units PRBC's 5.9 Thank You, Tj BETANCOURT
[2022-08-23] MEDS ORDERED: MIDAZolam 1 MG/ML 5ML VIAL ONE (14:03)
[2022-08-23] MEDS ORDERED: LIDOcaine Viscous 15ml cup ONE (14:03)
[2022-08-23] MEDS ORDERED: fentaNYL/PF 50MCG/1 ML 2ML syringe ONE (14:03)
--- NOTE | 2022-08-23 14:20 | NUR ---
went to GI lab
--- NOTE | 2022-08-23 16:55 | NUR ---
Message: RE KRISTINE LÓPEZ ROOM [id number]. 2ND NOTIFICATION HGB 5.9. DID YOU WANT TO TREAY THIS? ALSO, THERE ARE NO MAINTENANCE FLUIDS EITHER THANK YOU ABRAHAM RN
[2022-08-23] MEDS: furosemide 40mg tablet PO SCH ×2 (17:44→23:35)
[2022-08-23 19:03] LABS: OCCULT BLOOD STOOL POSITIVE (Neg)
[2022-08-23] MEDS ORDERED: pantoprazole 40mg Tablet.DR PO SCH (20:00)
[2022-08-23] MEDS: K and/or MAG REPLACEMENT MC SCH (20:00)
[2022-08-23] MEDS: diltiazem CD 180mg cap (once-daily) PO SCH (20:37)
[2022-08-23] MEDS: duloxetine 30mg CAPSULE.DR PO SCH (20:37)
[2022-08-23] MEDS: pregabalin 75mg capsule PO SCH (20:38)
[2022-08-23] MEDS ORDERED: insulin glargine (Lantus) pen - multi-dose SQ SCH (21:00)
[2022-08-23] MEDS ORDERED: atorvastatin 20mg tablet PO SCH (21:00)
[2022-08-24 00:09] LABS: HEMOGLOBIN 8.3 g/dl (12.0-16.0); MEAN CORPUSCULAR HEMOGLOBIN 25.7 PG (27.0-31.0); MEAN CORPUSCULAR HGB CONC 33.3 g/dL (33.0-36.5); MEAN CORPUSCULAR VOLUME 77.4 FL (78-98); PLATELET COUNT 131 X10'3 (140-440); RED BLOOD COUNT 3.22 X10'6 (4.20-5.60); RED CELL DISTRIBUTION WIDTH 22.7 % (11.5-14.5); WHITE BLOOD COUNT 4.9 X10'3 (4.5-11.0)
[2022-08-24 00:11] LABS: MAGNESIUM 1.5 MG/DL (1.5-2.4); POTASSIUM 3.4 MMOL/L (3.5-5.1)
[2022-08-24] MEDS: pantoprazole 40MG/NS 100ML BAG 100 ML IV SCH ×2 (01:00→04:20)
[2022-08-24 02:00] VITALS: BP 125/52
[2022-08-24 06:22] LABS: BASOPHILS % (AUTO) 0.6 % (0-1); EOSINOPHILS # (AUTO) 0.1 X10'3 (0-0.9); EOSINOPHILS % (AUTO) 2.3 % (0-6); HEMATOCRIT 25.6 % (35.0-45.0); HEMOGLOBIN 8.5 g/dl (12.0-16.0); LYMPHOCYTES # (AUTO) 0.8 X10'3 (1.1-4.8); LYMPHOCYTES % (AUTO) 17.3 % (21-51); MEAN CORPUSCULAR HEMOGLOBIN 25.5 PG (27.0-31.0); MEAN CORPUSCULAR HGB CONC 33.2 g/dL (33.0-36.5); MEAN CORPUSCULAR VOLUME 76.8 FL (78-98); MEAN PLATELET VOLUME 8.9 FL (7.4-10.4); MONOCYTES # (AUTO) 0.6 X10'3 (0-0.9); MONOCYTES % (AUTO) 11.8 % (2-12); NEUTROPHILS # (AUTO) 3.3 X10'3 (1.8-7.7); PLATELET COUNT 130 X10'3 (140-440); RED BLOOD COUNT 3.34 X10'6 (4.20-5.60); RED CELL DISTRIBUTION WIDTH 22.7 % (11.5-14.5); WHITE BLOOD COUNT 4.8 X10'3 (4.5-11.0)
--- NOTE | 2022-08-24 06:24 | NUR ---
Problems reprioritized. Patient report given, questions answered & plan of care reviewed with SUKHWINDER BETANCOURT.
[2022-08-24 06:27] VITALS: BP 119/48
[2022-08-24 06:46] LABS: ANION GAP 8 (8-16); BLOOD UREA NITROGEN 14 MG/DL (7-18); BUN/CREATININE RATIO 10.8 (6.6-38.0); CALCIUM 8.1 MG/DL (8.5-10.1); CHLORIDE 103 MMOL/L (99-107); GLUCOSE 124 MG/DL (70-104); MAGNESIUM 1.6 MG/DL (1.5-2.4); POTASSIUM 3.2 MMOL/L (3.5-5.1); SODIUM 142 MMOL/L (135-145); TOTAL CARBON DIOXIDE 31.5 MMOL/L (24-32); eGFR 39 ML/MIN
[2022-08-24] MEDS: pregabalin 75mg capsule PO SCH (07:30)
[2022-08-24] MEDS: diltiazem CD 180mg cap (once-daily) PO SCH (07:30)
[2022-08-24] MEDS: duloxetine 30mg CAPSULE.DR PO SCH (07:30)
[2022-08-24] MEDS: furosemide 40mg tablet PO SCH (07:30)
[2022-08-24] MEDS: docusate sod 100mg capsule PO SCH (07:30)
[2022-08-24] MEDS: K and/or MAG REPLACEMENT MC SCH (07:31)
[2022-08-24 08:00] VITALS: BP 130/43
[2022-08-24] MEDS ORDERED: calcitriol 0.25mcg capsule PO SCH (08:00)
[2022-08-24] MEDS ORDERED: digoxin 125mcg (0.125mg) tablet PO SCH (08:00)
[2022-08-24] MEDS ORDERED: levoTHYROXINE 25mcg tablet PO SCH (08:00)
[2022-08-24] MEDS ORDERED: ferrous gluconate 324mg tablet PO SCH (08:00)
[2022-08-24 09:00] VITALS: BP 109/37
--- NOTE | 2022-08-24 10:05 | NUR ---
Pt DC to home with in private vehicle. Pt verbalized understanding off all educational information and discharge instructions involving what to do if symptoms worsen and how to schedule follow up appointments recommended for her. Pt IV discharged with canula intact pt had no c/o pain or discomfort during or after procedure. Pt home with all belongings accounted for.
--- NOTE | 2022-08-24 10:15 | NUR ---
FLOOR ASSEMBLER documentation: I have reviewed and agree with all interventions, assessments performed and documented by Amina Cali LVN.
[2022-08-24 10:31] LABS: PLATELET ESTIMATE DECREASED
[2022-08-24 10:32] LABS: ANISOCYTOSIS 3+; HYPOCHROMASIA 1+; MICROCYTOSIS 1+; POLYCHROMASIA 1+
== END 2022-08-24 10:00 | disposition home health service (06) | DRG 378 ==
LOC: ER 21:10 → ED HOLD 23:28 → ORTHO 4S 08-23 12:10
PROVIDERS: ADMIT Internal Medicine; ATTEND Family Medicine
PROC: 30233N1 Transfusion of Nonautologous Red Blood Cells into Peripheral Vein, Percutaneous Approach (ICD-10-PCS; principal; 2022-08-23)
PROC: 0DJ08ZZ Inspection of Upper Intestinal Tract, Via Natural or Artificial Opening Endoscopic (ICD-10-PCS; 2022-08-23)
DX: K29.71 Gastritis, unspecified, with bleeding (principal); I13.0 Hypertensive heart and chronic kidney disease with heart failure and stage 1 through stage 4 chronic kidney disease, or unspecified chronic kidney disease; K92.1 Melena; E03.9 Hypothyroidism, unspecified; E11.22 Type 2 diabetes mellitus with diabetic chronic kidney disease; E78.5 Hyperlipidemia, unspecified; E87.6 Hypokalemia; G47.30 Sleep apnea, unspecified; G89.29 Other chronic pain; I49.5 Sick sinus syndrome; K21.9 Gastro-esophageal reflux disease without esophagitis; D64.9 Anemia, unspecified; M19.90 Unspecified osteoarthritis, unspecified site; E11.40 Type 2 diabetes mellitus with diabetic neuropathy, unspecified; R19.7 Diarrhea, unspecified; I25.10 Atherosclerotic heart disease of native coronary artery without angina pectoris; I48.0 Paroxysmal atrial fibrillation; I50.9 Heart failure, unspecified; N18.30 Chronic kidney disease, stage 3 unspecified; Z82.0 Family history of epilepsy and other diseases of the nervous system; Z82.3 Family history of stroke; Z95.0 Presence of cardiac pacemaker; Z88.8 Allergy status to other drugs, medicaments and biological substances; Z90.49 Acquired absence of other specified parts of digestive tract; Z87.440 Personal history of urinary (tract) infections; Z79.899 Other long term (current) drug therapy
CPT/HCPCS: 36415; 36430; 43235; 80048; 80053; 80162; 82272; 82728; 82948; 83036; 83540; 83550; 83615; 83735; 83880; 84100; 84132; 84443; 84484; 85008; 85025; 85027; 85045; 85379; 85610; 85730; 86870; 86885; 86900; 86901; 86902; 86905; 86920; 86922; 87081; 93005; 99152; 99291; A4620; C9113; G0378; J1815; J2250; J2270; J3010; J3480; J7030; J7040; P9016

== ENCOUNTER 2023-05-03 22:05 | Emergency (ER) | payer MEDICARE, BC ==
[~2023-05-03] VITALS: Ht 162.6 cm; Wt 96.8 kg
[~2023-05-03 22:05] MED LIST changes: -APIX5TAB3 PO; +CALC0.2535 PO; -CIPR250T4 PO; +DILT-36 PO; -DILT30TA2 PO; -FURO20TA4 PO; +FURO40TA4 PO; +HYDR-3965 PO; +POTA-206 PO
[2023-05-03 22:13] VITALS: BP 133/53
[2023-05-03 23:03] LABS: BASOPHILS % (AUTO) 0.3 % (0-1); EOSINOPHILS # (AUTO) 0.1 X10'3 (0-0.9); EOSINOPHILS % (AUTO) 1.2 % (0-6); HEMATOCRIT 30.6 % (35.0-45.0); HEMOGLOBIN 9.3 g/dl (12.0-16.0); LYMPHOCYTES # (AUTO) 0.6 X10'3 (1.1-4.8); LYMPHOCYTES % (AUTO) 8.6 % (21-51); MEAN CORPUSCULAR HEMOGLOBIN 19.4 PG (27.0-31.0); MEAN CORPUSCULAR HGB CONC 30.4 g/dL (33.0-36.5); MEAN CORPUSCULAR VOLUME 63.8 FL (78-98); MEAN PLATELET VOLUME 8.5 FL (7.4-10.4); MONOCYTES # (AUTO) 0.7 X10'3 (0-0.9); MONOCYTES % (AUTO) 9.3 % (2-12); NEUTROPHILS # (AUTO) 6.1 X10'3 (1.8-7.7); NEUTROPHILS % (AUTO) 80.6 % (42-75); PLATELET COUNT 303 X10'3 (140-440); RED CELL DISTRIBUTION WIDTH 19.5 % (11.5-14.5); WHITE BLOOD COUNT 7.6 X10'3 (4.5-11.0)
[2023-05-03 23:16] LABS: ALANINE AMINOTRANSFERASE 19 U/L (12-78); ALBUMIN 2.3 G/DL (3.4-5.0); ALBUMIN/GLOBULIN RATIO 0.5 (1.1-1.5); ALKALINE PHOSPHATASE 183 IU/L (46-116); ANION GAP 9 (8-16); ASPARTATE AMINO TRANSFERASE 24 U/L (10-37); BILIRUBIN,TOTAL 0.5 MG/DL (0.1-1.0); BLOOD UREA NITROGEN 17 MG/DL (7-18); BUN/CREATININE RATIO 12.1 (10.0-20.0); CALCIUM 8.8 MG/DL (8.5-10.1); CHLORIDE 103 MMOL/L (99-107); GLUCOSE 117 MG/DL (70-104); LIPASE 81 U/L (73-393); POTASSIUM 4.5 MMOL/L (3.5-5.1); SODIUM 140 MMOL/L (135-145); TOTAL CARBON DIOXIDE 27.9 MMOL/L (24-32); TOTAL PROTEIN 6.6 G/DL (6.4-8.2); eGFR 36 ML/MIN
[2023-05-04 00:40] LABS: ANISOCYTOSIS 2+; MICROCYTOSIS 2+; PLATELET ESTIMATE NORMAL
[2023-05-04 00:41] LABS: ELLIPTOCYTES 1+
[2023-05-04] MEDS ORDERED: SPIR100T5 PO (06:39)
== END 2023-05-04 01:02 | disposition left against medical advice (07) ==
LOC: ER 22:05
DX: R58 Hemorrhage, not elsewhere classified (principal); Z53.21 Procedure and treatment not carried out due to patient leaving prior to being seen by health care provider
CPT/HCPCS: 36415; 80053; 83690; 85008; 85025; 99281

== ENCOUNTER 2023-05-04 03:12 | Emergency (ER) | payer MEDICARE, BC ==
[~2023-05-04] VITALS: Ht 162.6 cm; Wt 96.8 kg
--- NOTE | 2023-05-04 05:34 | NUR ---
labs were cancelled as they were done at around 2200 last night when she was here, so its redundant.
[2023-05-04] MEDS ORDERED: SPIR100T5 PO (06:39)
--- NOTE | 2023-05-04 07:05 | NUR ---
OPTIFOAM PLACED ON WOUND ORDERED BY PROVIDER
[2023-05-04 08:26] VITALS: BP 131/63
--- NOTE | 2023-05-04 08:41 | NUR ---
IS ON HIS WAY WITH PATIENT O2
== END 2023-05-04 09:35 | disposition home or self-care (01) ==
LOC: ER 03:13
DX: K42.9 Umbilical hernia without obstruction or gangrene (principal); R18.8 Other ascites; I11.0 Hypertensive heart disease with heart failure; I50.9 Heart failure, unspecified; K21.9 Gastro-esophageal reflux disease without esophagitis; E11.9 Type 2 diabetes mellitus without complications; Z88.8 Allergy status to other drugs, medicaments and biological substances; Z90.49 Acquired absence of other specified parts of digestive tract
CPT/HCPCS: 74176; 99284; A4615; A6213

== ENCOUNTER 2023-06-28 17:41 | Inpatient (IN) | payer MEDICARE, BC ==
[~2023-06-28] VITALS: Ht 162.6 cm; Wt 72.7 kg
[~2023-06-28 17:41] MED LIST changes: +APIX5TAB3 PO; -CALC0.2535 PO; -FERR324T4 PO; -GABA-532 PO; +LACT10SO3 PO; -NITR0.4T48 SL; -PANT40TA54 PO; -POTA-206 PO; +SIMV-342 PO; -SIMV-42 PO; +SPIR100T5 PO
[2023-06-28] MEDS ORDERED: glycopyrrolate 0.2mg/ml inj IV ONE (19:40)
[2023-06-28 19:49] LABS: NEUTROPHILS # (AUTO) 20.7 X10'3 (1.8-7.7); WHITE BLOOD COUNT 22.4 X10'3 (4.5-11.0)
[2023-06-28 19:50] LABS: BASOPHILS # (AUTO) 0.1 X10'3 (0-0.2); BASOPHILS % (AUTO) 0.3 % (0-1); EOSINOPHILS % (AUTO) 0.2 % (0-6); HEMATOCRIT 39.8 % (35.0-45.0); HEMOGLOBIN 12.4 g/dl (12.0-16.0); LYMPHOCYTES # (AUTO) 0.5 X10'3 (1.1-4.8); LYMPHOCYTES % (AUTO) 2.1 % (21-51); MEAN CORPUSCULAR HEMOGLOBIN 21.2 PG (27.0-31.0); MEAN CORPUSCULAR HGB CONC 31.1 g/dL (33.0-36.5); MEAN CORPUSCULAR VOLUME 68.2 FL (78-98); MONOCYTES # (AUTO) 1.2 X10'3 (0-0.9); MONOCYTES % (AUTO) 5.2 % (2-12); NEUTROPHILS % (AUTO) 92.2 % (42-75); PLATELET COUNT 419 X10'3 (140-440); RED BLOOD COUNT 5.84 X10'6 (4.20-5.60); RED CELL DISTRIBUTION WIDTH 26.7 % (11.5-14.5)
[2023-06-28] MEDS ORDERED: piperacillin/tazo 3.375gm/50ml 50 ML IV ONE (20:05)
[2023-06-28] MEDS ORDERED: normal saline 1000ML IV soln IVB ONE (20:05)
[2023-06-28] MEDS ORDERED: morphine 4 MG/ML inj SYRINge IV ONE (20:10)
[2023-06-28] MEDS ORDERED: ondansetron/PF 4mg/2ml inj IV ONE (20:10)
[2023-06-28 20:13] LABS: ALANINE AMINOTRANSFERASE 18 U/L (12-78); ALBUMIN/GLOBULIN RATIO 0.4 (1.1-1.5); ALKALINE PHOSPHATASE 316 IU/L (46-116); ANION GAP 14 (8-16); ASPARTATE AMINO TRANSFERASE 23 U/L (10-37); BILIRUBIN,TOTAL 0.9 MG/DL (0.1-1.0); BLOOD UREA NITROGEN 36 MG/DL (7-18); BUN/CREATININE RATIO 21.3 (10.0-20.0); CALCIUM 9.5 MG/DL (8.5-10.1); CHLORIDE 90 MMOL/L (99-107); CREATININE 1.69 MG/DL (0.40-0.90); GLUCOSE 171 MG/DL (70-104); LIPASE 581 U/L (73-393); POTASSIUM 4.6 MMOL/L (3.5-5.1); SODIUM 131 MMOL/L (135-145); TOTAL CARBON DIOXIDE 26.9 MMOL/L (24-32); TOTAL PROTEIN 7.2 G/DL (6.4-8.2); eCRCL 23 ML/MIN; eGFR 29 ML/MIN
[2023-06-28] MEDS ORDERED: temazepam 15mg capsule PO PRN (21:00)
[2023-06-28 21:07] LABS: ANISOCYTOSIS 3+; LARGE PLATELETS MODERATE; MICROCYTOSIS 2+; PLATELET ESTIMATE NORMAL; TOTAL CELLS COUNTED 100; TOXIC GRANULATION 1+
[2023-06-28 21:08] LABS: HYPOCHROMASIA 2+
[2023-06-28 21:10] LABS: GIANT PLATELET FEW
[2023-06-28 21:30] LABS: BILIRUBIN,URINE NEGATIVE (Neg); CLARITY,URINE CLOUDY (Clear); GLUCOSE, URINE NEGATIVE (Neg); KETONES,URINE NEGATIVE (Neg); LEUKOCYTE ESTERASE ,URINE SMALL (Neg); NITRITES, URINE NEGATIVE (Neg); OCCULT BLOOD,URINE MODERATE (Neg); PH,URINE 5.5 (4.8-8.0); PROTEIN,URINE NEGATIVE (Neg)
[2023-06-28 21:54] LABS: COLOR,URINE DARK YELLOW (Yellow); UA COLLECTION TYPE STRAIGHT CATH
[2023-06-28 21:55] LABS: BACTERIA,URINE 4+ /HPF (Neg); WBC,URINE 50-100 /HPF (0-4)
[2023-06-28 21:56] LABS: MUCUS STRANDS MODERATE /LPF (Neg); SQUAMOUS EPITHELIAL CELL,UR MODERATE /LPF (FEW); TRANSITIONAL EPI CELLS,URINE FEW /HPF; WBC CLUMPS,URINE MODERATE /HPF (NEGATIVE)
[2023-06-28] MEDS ORDERED: mag hydrox/Alum hydrox/simeth 30ml oral suspension PO PRN (23:10)
[2023-06-28] MEDS ORDERED: diphenhydrAMINE 50 mg/ml inj IV PRN (23:10)
[2023-06-28] MEDS ORDERED: diphenhydrAMINE 25mg capsule PO PRN (23:10)
[2023-06-28] MEDS ORDERED: normal saline 1000ml 1,000 ML IV SCH (23:10)
[2023-06-28] MEDS ORDERED: ondansetron 4mg rapidly disintigrating tab PO PRN (23:10)
[2023-06-28] MEDS ORDERED: acetaminophen 325mg tablet PO PRN (23:10)
[2023-06-28] MEDS ORDERED: magnesium hydroxide 30ml (MOM) UD suspension PO PRN (23:10)
[2023-06-28] MEDS ORDERED: morphine 2 MG/ML inj. syringe IV PRN (23:10)
[2023-06-28] MEDS ORDERED: bisacodyl 10mg suppository rectal RC PRN (23:10)
[2023-06-28] MEDS ORDERED: ondansetron/PF 4mg/2ml inj IV PRN (23:10)
[2023-06-28] MEDS ORDERED: HYDROcodone/acetaminophen 5mg/325mg tablet PO PRN (23:10)
[2023-06-28] MEDS: diatr meglu/diatrizoate 30ml oral sol.-(3 dose) bottle PO SCH (23:43)
[2023-06-29] MEDS ORDERED: dextrose 50%-water 50ml dispensing syringe IV PRN ×2 (00:35)
[2023-06-29] MEDS ORDERED: DEXTROSE 15 GM of carb/4 tabs (each vial/BOTTLE has 4 tablets) PO PRN ×2 (00:35)
[2023-06-29] MEDS ORDERED: insulin Lispro (HumaLOG) vial - multi-dose SQ SCH (00:35)
[2023-06-29] MEDS ORDERED: glucagon, human recombinant 1mg kit SUBCUT PRN (00:35)
[2023-06-29] MEDS ORDERED: MESSAGE TO PHARMACY PO ONE (00:35)
[2023-06-29] MEDS ORDERED: MAG355OR18 PO (00:50)
[2023-06-29] MEDS ORDERED: CARB1DRO42 OP (00:50)
[2023-06-29] MEDS ORDERED: ACET-1013 PO (00:50)
[2023-06-29] MEDS ORDERED: POLY17PO10 PO (00:50)
[2023-06-29] MEDS ORDERED: DOCU100C40 PO (00:50)
[2023-06-29] MEDS ORDERED: ATOR10TA87 PO (00:50)
[2023-06-29] MEDS ORDERED: HYDROcodone/acetaminophen 5mg/325mg tablet PO PRN (01:30)
[2023-06-29] MEDS ORDERED: PEG 400/HYPROMELLOSE/GLYCERIN 15ml bottle EACHEYE PRN (01:30)
[2023-06-29 02:14] LABS: DIGOXIN 1.2 NG/ML (0.9-1.9); MAGNESIUM 1.7 MG/DL (1.5-2.4); PHOSPHORUS 4.7 MG/DL (2.3-4.5); PRO BRAIN NATRIURETIC PEPTIDE 1399 PG/ML (0-450)
[2023-06-29 02:42] LABS: APTT 56 SECONDS (22-32); D-DIMER 4.05 MG/L FEU (0-0.50); INR 1.1 INR; PROTHROMBIN TIME 11.6 SECONDS (9.0-12.0)
[2023-06-29] MEDS ORDERED: levoTHYROXINE 25mcg tablet PO SCH (07:00)
[2023-06-29] MEDS: diatr meglu/diatrizoate 30ml oral sol.-(3 dose) bottle PO SCH ×2 (07:08→10:10)
--- NOTE | 2023-06-29 07:23 | NUR ---
Patient refused NGT insertion. I have explained to her why she needed it and that it will help with her abdominal pain and relieve the pressure. Patient states "I don't want tube into my nose!" even after I explained to her why she need it
[2023-06-29] MEDS ORDERED: atorvastatin 10mg tablet PO SCH (08:00)
[2023-06-29] MEDS ORDERED: piperacillin/tazo 4.5gm/100ml 100 ML IV SCH (08:00)
[2023-06-29] MEDS ORDERED: pantoprazole 40MG/NS 100ML BAG 100 ML IV SCH (08:00)
[2023-06-29] MEDS ORDERED: duloxetine 30mg CAPSULE.DR PO SCH (08:00)
[2023-06-29] MEDS ORDERED: docusate sod 100mg capsule PO SCH ×2 (08:00)
[2023-06-29] MEDS ORDERED: pregabalin 75mg capsule PO SCH (08:00)
[2023-06-29] MEDS ORDERED: furosemide 10 MG/1 ML 10ml inj IV SCH (08:00)
[2023-06-29] MEDS ORDERED: diltiazem CD 180mg cap (once-daily) PO SCH (08:00)
[2023-06-29] MEDS ORDERED: digoxin 125mcg (0.125mg) tablet PO SCH (08:00)
[2023-06-29] MEDS: morphine 2 MG/ML inj. syringe IV PRN ×2 (08:57→18:14)
--- NOTE | 2023-06-29 09:07 | NUR ---
Resident doctor was notified about patient refusal of NGT insertion
[2023-06-29 11:00] VITALS: BP 153/82; PULSE 31; RESP 31; TEMP 98.4; O2SAT 91
[2023-06-29] MEDS ORDERED: normal saline 1000ml 1,000 ML IV SCH (11:40)
[2023-06-29 13:57] LABS: EOSINOPHILS % (AUTO) 0 % (0-6); LYMPHOCYTES # (AUTO) 0.3 X10'3 (1.1-4.8); MONOCYTES # (AUTO) 0.5 X10'3 (0-0.9); NEUTROPHILS # (AUTO) 8.4 X10'3 (1.8-7.7)
[2023-06-29 13:59] LABS: BASOPHILS % (AUTO) 0.3 % (0-1); HEMATOCRIT 39.5 % (35.0-45.0); HEMOGLOBIN 12.4 g/dl (12.0-16.0); LYMPHOCYTES % (AUTO) 3.1 % (21-51); MEAN CORPUSCULAR HEMOGLOBIN 21.8 PG (27.0-31.0); MEAN CORPUSCULAR HGB CONC 31.5 g/dL (33.0-36.5); MEAN CORPUSCULAR VOLUME 69.1 FL (78-98); MEAN PLATELET VOLUME 9.7 FL (7.4-10.4); MONOCYTES % (AUTO) 5.3 % (2-12); NEUTROPHILS % (AUTO) 91.3 % (42-75); PLATELET COUNT 424 X10'3 (140-440); RED BLOOD COUNT 5.71 X10'6 (4.20-5.60); RED CELL DISTRIBUTION WIDTH 26.8 % (11.5-14.5); WHITE BLOOD COUNT 9.2 X10'3 (4.5-11.0)
[2023-06-29 14:14] LABS: ALANINE AMINOTRANSFERASE 33 U/L (12-78); ALBUMIN 1.9 G/DL (3.4-5.0); ALBUMIN/GLOBULIN RATIO 0.4 (1.1-1.5); ALKALINE PHOSPHATASE 261 IU/L (46-116); ANION GAP 20 (8-16); ASPARTATE AMINO TRANSFERASE 58 U/L (10-37); BILIRUBIN,TOTAL 1.2 MG/DL (0.1-1.0); BLOOD UREA NITROGEN 46 MG/DL (7-18); BUN/CREATININE RATIO 17.9 (10.0-20.0); CALCIUM 9.1 MG/DL (8.5-10.1); CHLORIDE 91 MMOL/L (99-107); CREATININE 2.57 MG/DL (0.40-0.90); GLUCOSE 169 MG/DL (70-104); POTASSIUM 5.4 MMOL/L (3.5-5.1); SODIUM 135 MMOL/L (135-145); TOTAL CARBON DIOXIDE 24.5 MMOL/L (24-32); TOTAL PROTEIN 6.8 G/DL (6.4-8.2); eCRCL 15 ML/MIN; eGFR 18 ML/MIN
[2023-06-29] MEDS ORDERED: iohexol 300mg/ml 100ml inj. ONE (14:15)
[2023-06-29 15:00] VITALS: BP 122/64; PULSE 31; RESP 28; TEMP 97.7; O2SAT 100
[2023-06-29 15:03] LABS: TOTAL CELLS COUNTED 100
[2023-06-29 15:04] LABS: ANISOCYTOSIS 3+; GIANT PLATELET FEW; HYPOCHROMASIA 2+; MICROCYTOSIS 2+; PLATELET ESTIMATE NORMAL
[2023-06-29 15:05] LABS: LARGE PLATELETS FEW; POLYCHROMASIA FEW
--- NOTE | 2023-06-29 15:14 | NUR ---
paged Dr Silva regarding critical lactic of 7.[address] Dixon to advise with no answer at this time.
[2023-06-29] MEDS ORDERED: diatr meglu/diatrizoate 30ml oral sol.-(3 dose) bottle PO SCH (21:00)
--- NOTE | 2023-06-29 23:27 | NUR ---
Patient on comfort care, at bedside. Respiratory rate was diminished, no gasping for air, no signs of discomfort, patient not responding or opening her eyes. Patient stopped breathing and was found to have no pulse, declared at 2047. was at the bedside, Dr. Oates notified. Belongings, as patient rings, sent home with her . Asif home picked up body at 2144
== END 2023-06-29 21:30 | DRG 393 ==
LOC: ER 17:41 → ED HOLD 23:16 → EDBEDREQ 06-29 10:17 → PCU 3S 06-29 11:00
PROVIDERS: ADMIT Family Medicine; ATTEND Internal Medicine
PROC: BW211ZZ Computerized Tomography (CT Scan) of Abdomen and Pelvis using Low Osmolar Contrast (ICD-10-PCS; principal; 2023-06-29)
DX: K55.9 Vascular disorder of intestine, unspecified (principal); I50.33 Acute on chronic diastolic (congestive) heart failure; K76.7 Hepatorenal syndrome; K56.609 Unspecified intestinal obstruction, unspecified as to partial versus complete obstruction; E87.1 Hypo-osmolality and hyponatremia; I13.0 Hypertensive heart and chronic kidney disease with heart failure and stage 1 through stage 4 chronic kidney disease, or unspecified chronic kidney disease; N17.9 Acute kidney failure, unspecified; N39.0 Urinary tract infection, site not specified; R18.8 Other ascites; R64 Cachexia; D69.59 Other secondary thrombocytopenia; E03.9 Hypothyroidism, unspecified; E11.22 Type 2 diabetes mellitus with diabetic chronic kidney disease; E11.40 Type 2 diabetes mellitus with diabetic neuropathy, unspecified; E78.5 Hyperlipidemia, unspecified; I25.10 Atherosclerotic heart disease of native coronary artery without angina pectoris; I27.20 Pulmonary hypertension, unspecified; I48.91 Unspecified atrial fibrillation; K21.9 Gastro-esophageal reflux disease without esophagitis; I77.1 Stricture of artery; E88.09 Other disorders of plasma-protein metabolism, not elsewhere classified; G47.33 Obstructive sleep apnea (adult) (pediatric); G89.29 Other chronic pain; I49.5 Sick sinus syndrome; K74.60 Unspecified cirrhosis of liver; L08.9 Local infection of the skin and subcutaneous tissue, unspecified; N18.9 Chronic kidney disease, unspecified; Z82.0 Family history of epilepsy and other diseases of the nervous system; Z82.3 Family history of stroke; Z82.49 Family history of ischemic heart disease and other diseases of the circulatory system; Z87.891 Personal history of nicotine dependence; Z90.49 Acquired absence of other specified parts of digestive tract; Z95.0 Presence of cardiac pacemaker; Z88.8 Allergy status to other drugs, medicaments and biological substances; Z79.899 Other long term (current) drug therapy; Z68.27 Body mass index [BMI] 27.0-27.9, adult
CPT/HCPCS: 36415; 74176; 74177; 80053; 80162; 81001; 82140; 82948; 83605; 83690; 83735; 83880; 84100; 84145; 84443; 85007; 85025; 85379; 85610; 85730; 87040; 87077; 87088; 87186; 99285; A4353; C9113; G0378; J1815; J1940; J2270; J2405; J2543; J3490; J7030; Q9963; Q9967